=== PATIENT | male | born 1965 | race Caucasian/White ===

== ENCOUNTER 2017-03-18 05:17 | Inpatient (IN) | payer BC ==
[2017-03-18] VITALS (16 sets, daily range): BP systolic 97–117; BP diastolic 51–74
[~2017-03-18] VITALS: Ht 182.9 cm; Wt 79.4 kg
[~2017-03-18 05:17] MED LIST: NKM
[2017-03-18] MEDS ORDERED: Duramorph PF 5mg/10ml amp ONE (06:15)
[2017-03-18] MEDS ORDERED: Bupivacaine 0.5% Inj 30 ml vial INJ ONE (06:16)
[2017-03-18] MEDS ORDERED: Ropivacaine 5mg/ml Vial 20ml INJ ONE (06:16)
[2017-03-18] MEDS ORDERED: Bacitracin 50000 Units Vial ONE ×2 (06:38→13:32)
[2017-03-18] MEDS ORDERED: LR 1000ml 1,000 ML IVLG SCH (07:20)
--- NOTE | 2017-03-18 07:24 | Anethesia Preoperative Eval ---
Anesthesia Pre-op PMH/ROS General Date of Evaluation: Mar 18, 2017 Anesthesiologist: Sumit ASA Score: ASA 2 Mallampati Score Class I : Soft palate, uvula, fauces, pillars visible Class II: Soft palate, uvula, fauces visible Class III: Soft palate, base of uvula visible Class IV: Only hard plate visible Mallampati Classification: Class II Surgeon: Lisa Diagnosis: R Knee Pain Surgical Procedure: R Knee Revision Total Arthroplasty Anesthesia History: none Family History: no anesthesia problems Allergies: Coded Allergies: No Known Allergies (Unverified , 03/17/17) Medications: see eMAR Past Medical History PSxH Narrative: R TKA, R ACL Repair Anesthesia Pre-op Phys. Exam Physician Exam Last Vital Signs Date Time Temp Pulse Resp B/P Pulse Ox O2 Delivery O2 Flow Rate FiO2 03/18/17 06:01 97.7 58 20 117/74 100 Room Air Constitutional: NAD Neurologic: CN 2-12 intact Cardiovascular: RRR Respiratory: CTA Gastrointestinal: S/NT/ND Airway Exam Mallampati Score: Class II MO: full ROM: full Teeth: intact Anesthesia Pre-op A/P Risk Assessment & Plan Assessment: ASA 2 Plan: GA, R Adductor block, Spinal , BIS Status Change Before Surgery: No Pre-Antibiotics Dru Grams Ancef IV Given Within 1 Hr of Incision: Yes Time Given: 07:51 Chano Arana MD Mar 18, 2017 07:24
[2017-03-18] MEDS ORDERED: Meperidine 25mg/0.5ml Inj (FOR RIGORS ONLY) IV PRN (07:30)
[2017-03-18] MEDS ORDERED: fentaNYL 100 mcg/2 mL IV PRN (07:30)
[2017-03-18] MEDS ORDERED: Norco 5mg/325mg tab ORAL PRN (07:30)
[2017-03-18] MEDS ORDERED: Tranexamic Acid 1,000 MG in NS 65 ML IVPB ONE (07:30)
[2017-03-18] MEDS ORDERED: oxyCODONE HCL/Acetaminophen 5/325mg ORAL PRN (07:30)
[2017-03-18] MEDS ORDERED: Ketorolac 60mg Inj IV PRN (07:30)
[2017-03-18] MEDS ORDERED: Atropine Inj 1mg/10ml Syr IV PRN (07:30)
[2017-03-18] MEDS ORDERED: Metoclopramide 10mg/2ml Inj IVP PRN (07:30)
[2017-03-18] MEDS ORDERED: Hydromorphone 0.5mg/0.5ml inj IVP PRN (07:30)
[2017-03-18] MEDS ORDERED: DiphenhydrAMINE 50mg/ml Inj IVP PRN (07:30)
[2017-03-18] MEDS ORDERED: Ketorolac 30mg Inj IV PRN (07:30)
[2017-03-18] MEDS ORDERED: Norco 7.5mg/325mg tab ORAL PRN (07:30)
[2017-03-18] MEDS ORDERED: LORazepam Inj 2mg/ml 1ml IV PRN (07:30)
[2017-03-18] MEDS ORDERED: Midazolam 2mg/2ml Inj IVP PRN (07:30)
--- NOTE | 2017-03-18 07:38 | Pre-Procedure Note/Attestation ---
Pre-Procedure Note/Attestation Complete Prior to Procedure Planned Procedure: right Procedure Narrative: right knee revision Indications for Procedure Pre-Operative Diagnosis: right knee instability and stiffness Attestation I attest that I discussed the nature of the procedure; its benefits; risks and complications; and alternatives (and the risks and benefits of such alternatives ), prior to the procedure, with the patient (or the patient's legal human resources representative). I attest that, if there was a reasonable possibility of needing a blood transfusion, the patient (or the patient's legal human resources representative) was given the [facility] of Health Services standardized written summary, pursuant to the Nigel Cisco Blood Safety Act ([place] Health and Safety Code # 1645, as amended). I attest that I re-evaluated the patient just prior to the surgery and that there has been no change in the patient's H&P, except as documented below: KIET ECHOLS Mar 18, 2017 07:38
--- NOTE | 2017-03-18 09:28 | Immediate Post-Op Evaluation ---
Immediate Post-Op Evalulation Immediate Post-Op Evalulation Procedure: R Knee Revision Total Arthroplasty Date of Evaluation: Mar 18, 2017 Time of Evaluation: 11:17 IV Fluids: 1300 LR Blood Products: 0 Estimated Blood Loss: 100 Urinary Output: 150 Blood Pressure Systolic: 105 Blood Pressure Diastolic: 59 Pulse Rate: 98 Respiratory Rate: 16 O2 Sat by Pulse Oximetry: 98 Temperature (Fahrenheit): 97.5 Pain Score (1-10): 0 Nausea: No Vomiting: No Complications 0 Patient Status: awake, reacts, patent, extubated, none Hydration Status: adequate Dru Grams Ancef IV Given Within 1 Hr of Incision: Yes Time Given: 07:51 Chano Arana MD Mar 18, 2017 09:28
--- NOTE | 2017-03-18 10:20 | Brief Operative Note ---
Immediate Post Operative Note Operative Note Chief Complaint: right knee instability Pre-op Diagnosis: right knee instability and stiffness Procedure: right knee revision Post-op Diagnosis: right knee failed Post-op Diagnosis: same as pre-op Surgeon: gil Tube Sizer Operator: regnie Anesthesia: general Specimen: yes Complications: none Condition: stable Estimated Blood Loss: minimal Drains: hemovac Implant(s) used?: Yes KIET ECHOLS Mar 18, 2017 10:20
--- NOTE | 2017-03-18 11:34 | Diagnostic Imaging Report ---
Indication: Right knee pain Technique: 2 views of the right knee Comparison: None Findings:There is a right knee arthroplasty prosthesis in good position. No worrisome periprosthetic lucency demonstrated. No acute fractures. No dislocations. No suprapatellar effusion. A small metallic surgical foreign body is seen density to the cortex in the lateral aspect of the tibial metaphysis Impression:No acute process Right knee arthroplasty in good position
[2017-03-18] MEDS ORDERED: Morphine Sulfate 2mg/ml Inj IVP PRN ×2 (12:30)
[2017-03-18] MEDS ORDERED: Morphine Sulfate 4mg/ml Inj IVP PRN (12:30)
[2017-03-18] MEDS: D5 1/2NS w/KCl 20mEq 1,000 ML IV SCH (13:42)
[2017-03-18] MEDS: ceFAZolin sod 1 GM in D5W 55 ML IV SCH (13:42)
--- NOTE | 2017-03-18 14:50 | Cardiology Progress Note ---
Assessment/Plan Assessment/Plan full note dicated xarelto fo dvt ppx as of tomorrow if ok with dr alvarez will discuss oob with pt as recommneded pain control may anti emetic as needed Objective Last 24 Hour Vital Signs Date Time Temp Pulse Resp B/P Pulse Ox O2 Delivery O2 Flow Rate FiO2 03/18/17 14:00 97.0 83 20 108/69 99 Room Air 03/18/17 13:15 97.5 63 20 108/66 100 Room Air 03/18/17 13:00 97.0 79 20 111/64 98 Room Air 03/18/17 12:45 65 15 105/61 100 Room Air 03/18/17 12:30 61 14 112/63 100 Room Air 03/18/17 12:15 67 20 98/51 100 Room Air 03/18/17 12:00 71 18 106/64 100 Room Air 03/18/17 11:45 67 15 97/59 100 Room Air 03/18/17 11:30 76 20 100/63 100 Room Air 03/18/17 11:20 88 17 109/60 97 Room Air 03/18/17 11:15 84 15 112/63 96 Room Air 03/18/17 11:07 98 16 98 03/18/17 11:06 97.5 98 16 105/59 98 Room Air 03/18/17 06:01 97.7 58 20 117/74 100 Room Air ANGELIQUE OROZCO Mar 18, 2017 14:50
--- NOTE | 2017-03-18 15:26 | Diagnostic Imaging Report ---
Indication: POST-OP, status post revision a right knee prosthesis Technique: 2 views of the right knee Comparison: 7 hours earlier Findings:Interim replacement of previously demonstrated knee arthroplasty prosthesis with longer stemmed articulating prosthesis. Good anatomic alignment. There are overlying skin yamileth. Small amount of retained air from the surgical exposure is demonstrated. Surgical drain is in place. Impression:Postoperative right knee. No unusual features
[2017-03-18 15:49] LABS: MEAN CORPUSCULAR HEMOGLOBIN 31.2 PG (27.0-31.0); MEAN CORPUSCULAR HGB CONC 33.1 G/DL (32.0-36.0); MEAN CORPUSCULAR VOLUME 94 FL (80-99); MEAN PLATELET VOLUME 6.4 FL (6.5-10.1); PLATELET COUNT 246 K/UL (150-450); RED BLOOD COUNT 4.14 M/UL (4.70-6.10); RED CELL DISTRIBUTION WIDTH 12.3 % (11.6-14.8); WHITE BLOOD COUNT 13.5 K/UL (4.8-10.8)
[2017-03-18 15:52] LABS: INR 1.1 (0.9-1.1); PROTHROMBIN TIME 11.2 SEC (9.30-11.50)
[2017-03-18 16:23] LABS: BAND NEUTROPHILS % (MANUAL) 0 % (0-8); BASOPHILS % (MANUAL) 0 % (0-2); EOSINOPHILS % (MANUAL) 0 % (0-3); LYMPHOCYTES % (MANUAL) 7 % (20-45); NEUTROPHILS % (MANUAL) 89 % (45-75); PLATELET ESTIMATE ADEQUATE; PLATELET MORPHOLOGY NORMAL; TOTAL CELLS COUNTED 100
--- NOTE | 2017-03-18 20:45 | Consultation ---
DATE OF CONSULTATION: 03/18/2017 CARDIOLOGY CONSULTATION CONSULTING PHYSICIAN: Eitan Rosenberg M.D. REFERRING PHYSICIAN: Aurelio Gonzalez M.D. REASON FOR REFERRAL: Postoperative medical care. HISTORY OF PRESENT ILLNESS: This is a young gentleman, who has had history of knee problems, has undergone a prior ACL repair, but apparently left in poor shape and therefore he was evaluated and suddenly underwent repair by Dr. Adler. Today, he is being seen postoperatively . He has really no chest pains or shortness of breath. He did have some little bit nausea earlier, but that seems to have gone away and he is enjoying an ice cream bar at the present time. He denies any chest pain or pressure. There is no shortness of breath. No palpitations. No dizziness at the present time. PAST MEDICAL HISTORY: Fairly unremarkable. His chart indicates, he has got a history of arthritis and hyperlipidemia and previous ACL injuries before. MEDICATIONS: He was not on any medications preoperatively. ALLERGIES: He is not allergic to any medications. SOCIAL HISTORY: He does not smoke. He rarely drinks alcoholic beverages. 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 REVIEW OF SYSTEMS: Gastrointestinal: He has mentioned some nausea, but otherwise negative. Genitourinary: He has a Mckay catheter that he would like to have removed because of discomfort feeling. Pulmonary: Denies coughing or wheezing. Constitutional: No fevers, chills, or night sweats. Neurological: Negative. PHYSICAL EXAMINATION: GENERAL: Shows to be middle-aged gentleman in no respiratory distress. NECK: Supple. No jugular venous distention. LUNGS: Appear to be clear to auscultation and percussion. BACK: There is no CVA or spinal tenderness. CARDIAC: Regular rate and rhythm. No heaves or thrills noted. ABDOMEN: Soft and nontender. Positive bowel sounds. EXTREMITIES: There is no edema. He has right leg in a splint system in place. NEUROLOGIC: He is awake, responsive, and in no apparent distress. LABORATORY VALUES: All of these were preoperatively. His blood sugar was normal. His potassium was minimally elevated at 5.8 with a sodium of 144 and a creatinine of 1.15. INR is 1.0 and PTT of 33. White count 6.7, hemoglobin 13.9, and platelet count 288,000. Liver function tests are all negative. ASSESSMENT AND PLAN: 1. Torn anterior cruciate ligament, now status post repair by Dr. Aurelio Hernandez. 2. Noted history of hyperlipidemia. PLAN: This patient was seen in postoperative medical cardiac consultation. He is doing well postoperatively. He wants the catheter removed and it will be accomplished. He has DVT prophylaxis with use of pneumatic compression stockings. We will start Xarelto for knee surgery, 10 mg daily for 12 days. This will be started tomorrow morning if okay with Dr. Adler. Eitan Rosenberg M.D. DR: LULA JOB#: [id number] CC:
[2017-03-18] MEDS: Norco 7.5mg/325mg tab ORAL PRN (21:44)
[2017-03-19 00:08] VITALS: BP 103/60
[2017-03-19] MEDS: ceFAZolin sod 1 GM in D5W 55 ML IV SCH (00:26)
[2017-03-19] MEDS: D5 1/2NS w/KCl 20mEq 1,000 ML IV SCH (02:40)
[2017-03-19] MEDS: Norco 7.5mg/325mg tab ORAL PRN ×5 (03:47→21:49)
--- NOTE | 2017-03-19 06:25 | 48 Hour Post Anesthesia Eval ---
Post Anesthesia Evaluation Procedure: R Knee Revision Total Arthroplasty Date of Evaluation: Mar 19, 2017 Time of Evaluation: 06:01 Blood Pressure Systolic: 103 0: 60 Pulse Rate: 75 Respiratory Rate: 18 Temperature (Fahrenheit): 98.1 O2 Sat by Pulse Oximetry: 97 Airway: patent Nausea: No Vomiting: No Pain Intensity: 1 Hydration Status: adequate Cardiopulmonary Status: Stable Mental Status/LOC: patient returned to baseline Post-Anesthesia Complications: 0 Follow-up care needed: N/A Chano Arana MD Mar 19, 2017 06:25
[2017-03-19 06:56] LABS: INR 1.1 (0.9-1.1); PROTHROMBIN TIME 11.1 SEC (9.30-11.50)
[2017-03-19] MEDS ORDERED: LR 1000ml ONE (07:00)
[2017-03-19] MEDS ORDERED: NS Irrig 1000ml ONE (07:00)
[2017-03-19] MEDS ORDERED: Propofol 10mg/ml 20ml IV ONE (07:00)
[2017-03-19] MEDS ORDERED: Sterile Water Irrig 1000ml IRRIG ONE (07:00)
[2017-03-19] MEDS ORDERED: Dexamethasone 4mg/ml vial ONE (07:00)
[2017-03-19] MEDS ORDERED: Midazolam 2mg/2ml Inj ONE (07:00)
[2017-03-19] MEDS ORDERED: Alfentanil 2ml Inj ONE (07:00)
[2017-03-19] MEDS ORDERED: Lidocaine 1% MPF 10mg/ml 5ml ONE (07:00)
[2017-03-19 07:02] LABS: BASOPHILS % (AUTO) 0.2 % (0.0-2.0); LYMPHOCYTES % (AUTO) 19.3 % (20.0-45.0); MEAN CORPUSCULAR HEMOGLOBIN 32.2 PG (27.0-31.0); MEAN CORPUSCULAR HGB CONC 34.3 G/DL (32.0-36.0); MEAN CORPUSCULAR VOLUME 94 FL (80-99); MEAN PLATELET VOLUME 6.6 FL (6.5-10.1); MONOCYTES % (AUTO) 10.2 % (1.0-10.0); NEUTROPHILS % (AUTO) 70.2 % (45.0-75.0); PLATELET COUNT 233 K/UL (150-450); RED BLOOD COUNT 3.27 M/UL (4.70-6.10); WHITE BLOOD COUNT 15.3 K/UL (4.8-10.8)
[2017-03-19 08:00] VITALS: BP 119/66
[2017-03-19] MEDS: Xarelto 10mg tab ORAL SCH (09:00)
[2017-03-19] MEDS ORDERED: Enoxaparin 40mg Inj SUBQ SCH (09:00)
[2017-03-19] MEDS ORDERED: celeBREX 200mg Cap **SURGERY PATIENTS ONLY ORAL SCH (09:00)
[2017-03-19 12:00] VITALS: BP 116/68
[2017-03-19 16:00] VITALS: BP 112/66
[2017-03-19] MEDS: celeBREX 200mg Cap **SURGERY PATIENTS ONLY ORAL SCH (18:14)
--- NOTE | 2017-03-19 18:21 | Cardiology Progress Note ---
Assessment/Plan Assessment/Plan 1. Torn anterior cruciate ligament, now status post repair 2. Noted history of hyperlipidemia 3. anemia . drain still has output walked has associated pain dvt ppx started with xarelto watch h/h eatign ivf dcd d/w rn d/w dr alvarez Subjective Cardiovascular: Denies: chest pain, lightheadedness, palpitations Respiratory: Denies: SOB with excertion Gastrointestinal/Abdominal: Denies: abdominal pain, constipated Genitourinary: Denies: burning Objective Last 24 Hour Vital Signs Date Time Temp Pulse Resp B/P Pulse Ox O2 Delivery O2 Flow Rate FiO2 03/19/17 18:06 98.6 03/19/17 16:00 97.3 75 19 112/66 98 Room Air 03/19/17 12:00 98.6 69 19 116/68 98 Room Air 03/19/17 08:00 96.1 90 19 119/66 100 Room Air 03/19/17 06:25 75 18 97 03/19/17 00:08 98.1 75 18 103/60 97 Room Air 03/18/17 22:00 110/65 96 Room Air 03/18/17 20:15 98.0 79 19 97/55 97 Room Air General Appearance: no apparent distress, alert Neck: supple Cardiovascular: normal rate, regular rhythm Respiratory/Chest: lungs clear, normal breath sounds Abdomen: normal bowel sounds, non tender, soft Extremities: non-tender, no swelling Intake and Output 03/18/17 03/19/17 19:00 07:00 Intake Total 1115 ml 1050 ml Output Total 900 ml 1350 ml Balance 215 ml -300 ml Intake Oral 590 ml 300 ml IV Total 525 ml 750 ml Output Urine Total 500 ml 800 ml Drainage Total 400 ml 550 ml Laboratory Tests Test 03/19/17 05:15 White Blood Count 15.3 K/UL (4.8-10.8) H Red Blood Count 3.27 M/UL (4.70-6.10) L Hemoglobin 10.6 G/DL (14.2-18.0) L Hematocrit 30.8 % (42.0-52.0) L Mean Corpuscular Volume 94 FL (80-99) Mean Corpuscular Hemoglobin 32.2 PG (27.0-31.0) H Mean Corpuscular Hemoglobin Concent 34.3 G/DL (32.0-36.0) Red Cell Distribution Width 12.0 % (11.6-14.8) Platelet Count 233 K/UL (150-450) Mean Platelet Volume 6.6 FL (6.5-10.1) Neutrophils (%) (Auto) 70.2 % (45.0-75.0) Lymphocytes (%) (Auto) 19.3 % (20.0-45.0) L Monocytes (%) (Auto) 10.2 % (1.0-10.0) H Eosinophils (%) (Auto) 0.0 % (0.0-3.0) Basophils (%) (Auto) 0.2 % (0.0-2.0) Prothrombin Time 11.1 SEC (9.30-11.50) Prothromb Time International Ratio 1.1 (0.9-1.1) Microbiology Date/Time Source Procedure Growth Status 03/18/17 09:00 Knee Right Gram Stain - Final Resulted 03/18/17 09:00 Knee Right Aerobic Culture - Preliminary NO GROWTH AFTER 24 HOURS Resulted 03/18/17 09:00 Knee Right Anaerobic Culture Pending Resulted ANGELIQUE OROZCO Mar 19, 2017 18:21
[2017-03-19 20:00] VITALS: BP 119/76
[2017-03-20] VITALS: BP 118/64
[2017-03-20 04:00] VITALS: BP 122/78
[2017-03-20] MEDS: Norco 7.5mg/325mg tab ORAL PRN ×2 (06:43→15:04)
[2017-03-20 07:31] LABS: BASOPHILS % (AUTO) 0.7 % (0.0-2.0); EOSINOPHILS % (AUTO) 1.4 % (0.0-3.0); LYMPHOCYTES % (AUTO) 48.7 % (20.0-45.0); MEAN CORPUSCULAR HEMOGLOBIN 33.7 PG (27.0-31.0); MEAN CORPUSCULAR HGB CONC 35.1 G/DL (32.0-36.0); MEAN CORPUSCULAR VOLUME 96 FL (80-99); MEAN PLATELET VOLUME 6.9 FL (6.5-10.1); MONOCYTES % (AUTO) 8.3 % (1.0-10.0); PLATELET COUNT 179 K/UL (150-450); RED BLOOD COUNT 3.03 M/UL (4.70-6.10); RED CELL DISTRIBUTION WIDTH 12.5 % (11.6-14.8); WHITE BLOOD COUNT 11.1 K/UL (4.8-10.8)
[2017-03-20 08:01] LABS: INR 0.9 (0.9-1.1); PROTHROMBIN TIME 9.5 SEC (9.30-11.50)
[2017-03-20 08:29] VITALS: BP 118/76
[2017-03-20] MEDS: Xarelto 10mg tab ORAL SCH (09:13)
[2017-03-20] MEDS: celeBREX 200mg Cap **SURGERY PATIENTS ONLY ORAL SCH ×2 (09:13→17:44)
[2017-03-20] MEDS ORDERED: Tubing IV Secondary IV ONE (10:35)
[2017-03-20] MEDS ORDERED: NS Irrig 1000ml ONE (10:35)
[2017-03-20 12:00] VITALS: BP 119/73
[2017-03-20 16:38] VITALS: BP 109/68
--- NOTE | 2017-03-20 17:30 | Cardiology Progress Note ---
Assessment/Plan Assessment/Plan 1. Torn anterior cruciate ligament, now status post repair 2. Noted history of hyperlipidemia 3. anemia . walked dvt ppx started with xarelto h/h stable eatign ivf dcd home tomorrow if ok with dr alvarez Subjective Cardiovascular: Denies: chest pain, lightheadedness Respiratory: Denies: SOB with excertion Gastrointestinal/Abdominal: Denies: abdominal pain, constipated Genitourinary: Denies: burning Objective Last 24 Hour Vital Signs Date Time Temp Pulse Resp B/P Pulse Ox O2 Delivery O2 Flow Rate FiO2 03/20/17 16:38 97.6 73 20 109/68 100 Room Air 03/20/17 12:00 97.6 74 20 119/73 99 Room Air 03/20/17 08:29 97.3 87 20 118/76 99 Room Air 03/20/17 04:00 97.7 90 20 122/78 98 Room Air 03/20/17 00:00 97.7 98 17 118/64 98 Room Air 03/19/17 20:00 97.4 85 18 119/76 99 Room Air 03/19/17 18:06 98.6 General Appearance: alert Neck: normal alignment Cardiovascular: normal rate, regular rhythm Respiratory/Chest: lungs clear Abdomen: normal bowel sounds, non tender, soft Extremities: no swelling Intake and Output 03/19/17 03/20/17 19:00 07:00 Intake Total 975 ml Output Total 280 ml 100 ml Balance 695 ml -100 ml Intake Oral 600 ml IV Total 375 ml Drainage Total 280 ml 100 ml # Voids 1 2 Laboratory Tests Test 03/20/17 05:30 White Blood Count 11.1 K/UL (4.8-10.8) H Red Blood Count 3.03 M/UL (4.70-6.10) L Hemoglobin 10.2 G/DL (14.2-18.0) L Hematocrit 29.1 % (42.0-52.0) L Mean Corpuscular Volume 96 FL (80-99) Mean Corpuscular Hemoglobin 33.7 PG (27.0-31.0) H Mean Corpuscular Hemoglobin Concent 35.1 G/DL (32.0-36.0) Red Cell Distribution Width 12.5 % (11.6-14.8) Platelet Count 179 K/UL (150-450) Mean Platelet Volume 6.9 FL (6.5-10.1) Neutrophils (%) (Auto) 41.0 % (45.0-75.0) L Lymphocytes (%) (Auto) 48.7 % (20.0-45.0) H Monocytes (%) (Auto) 8.3 % (1.0-10.0) Eosinophils (%) (Auto) 1.4 % (0.0-3.0) Basophils (%) (Auto) 0.7 % (0.0-2.0) Prothrombin Time 9.5 SEC (9.30-11.50) Prothromb Time International Ratio 0.9 (0.9-1.1) Microbiology Date/Time Source Procedure Growth Status 03/18/17 09:00 Knee Right Gram Stain - Final Resulted 03/18/17 09:00 Knee Right Aerobic Culture - Preliminary NO GROWTH AFTER 48 HOURS Resulted 03/18/17 09:00 Knee Right Anaerobic Culture - Preliminary NO GROWTH AFTER 48 HOURS Resulted ANGELIQUE OROZCO Mar 20, 2017 17:30
[2017-03-20 20:00] VITALS: BP 122/81
--- NOTE | 2017-03-20 20:32 | General Progress Note ---
Progress Note Progress Note doing grood incision clear drain dc minimal pain xrays perfect cont RX KIET ECHOLS Mar 20, 2017 20:32
[2017-03-21] VITALS: BP 117/83
[2017-03-21 04:00] VITALS: BP 120/65
[2017-03-21 06:02] LABS: BASOPHILS % (AUTO) 0.7 % (0.0-2.0); EOSINOPHILS % (AUTO) 2.2 % (0.0-3.0); LYMPHOCYTES % (AUTO) 35.7 % (20.0-45.0); MEAN CORPUSCULAR HEMOGLOBIN 31.7 PG (27.0-31.0); MEAN CORPUSCULAR HGB CONC 33.7 G/DL (32.0-36.0); MEAN CORPUSCULAR VOLUME 94 FL (80-99); MEAN PLATELET VOLUME 6.9 FL (6.5-10.1); MONOCYTES % (AUTO) 8.9 % (1.0-10.0); NEUTROPHILS % (AUTO) 52.5 % (45.0-75.0); PLATELET COUNT 230 K/UL (150-450); RED BLOOD COUNT 3.43 M/UL (4.70-6.10); RED CELL DISTRIBUTION WIDTH 12.3 % (11.6-14.8); WHITE BLOOD COUNT 9.4 K/UL (4.8-10.8)
[2017-03-21 06:03] LABS: INR 0.9 (0.9-1.1); PROTHROMBIN TIME 9.7 SEC (9.30-11.50)
[2017-03-21 08:13] VITALS: BP 125/81
[2017-03-21] MEDS: celeBREX 200mg Cap **SURGERY PATIENTS ONLY ORAL SCH ×2 (08:25→17:10)
[2017-03-21] MEDS: Xarelto 10mg tab ORAL SCH (08:25)
[2017-03-21 12:30] VITALS: BP 107/66
[2017-03-21 16:46] VITALS: BP 113/61
--- NOTE | 2017-03-21 17:37 | Cardiology Progress Note ---
Assessment/Plan Assessment/Plan 1. Torn anterior cruciate ligament, now status post repair 2. Noted history of hyperlipidemia 3. anemia . walked dvt ppx started with xarelto understadn only a total of 12 dyas post op of xarelto h/h stable eatign ivf dcd will d/w dr alvarez about dc Subjective Cardiovascular: Denies: chest pain, lightheadedness, palpitations Respiratory: Denies: shortness of breath Gastrointestinal/Abdominal: Denies: abdominal pain Genitourinary: Denies: burning Objective Last 24 Hour Vital Signs Date Time Temp Pulse Resp B/P Pulse Ox O2 Delivery O2 Flow Rate FiO2 03/21/17 16:46 99.0 81 21 113/61 100 Room Air 03/21/17 12:30 98.0 76 20 107/66 97 Room Air 03/21/17 08:13 98.0 95 19 125/81 100 Room Air 03/21/17 04:00 97.8 72 19 120/65 99 Room Air 03/21/17 00:00 98.0 72 18 117/83 98 Room Air 03/20/17 20:00 98.2 77 20 122/81 100 Room Air General Appearance: no apparent distress, alert Neck: supple Cardiovascular: normal rate, regular rhythm Respiratory/Chest: lungs clear Abdomen: normal bowel sounds, non tender, soft Extremities: no swelling Intake and Output 03/20/17 03/21/17 19:00 07:00 Intake Total 600 ml 320 ml Output Total 50 ml Balance 550 ml 320 ml Intake Oral 600 ml 320 ml Drainage Total 50 ml # Voids 2 3 Laboratory Tests Test 03/21/17 05:30 White Blood Count 9.4 K/UL (4.8-10.8) Red Blood Count 3.43 M/UL (4.70-6.10) L Hemoglobin 10.9 G/DL (14.2-18.0) L Hematocrit 32.2 % (42.0-52.0) L Mean Corpuscular Volume 94 FL (80-99) Mean Corpuscular Hemoglobin 31.7 PG (27.0-31.0) H Mean Corpuscular Hemoglobin Concent 33.7 G/DL (32.0-36.0) Red Cell Distribution Width 12.3 % (11.6-14.8) Platelet Count 230 K/UL (150-450) Mean Platelet Volume 6.9 FL (6.5-10.1) Neutrophils (%) (Auto) 52.5 % (45.0-75.0) Lymphocytes (%) (Auto) 35.7 % (20.0-45.0) Monocytes (%) (Auto) 8.9 % (1.0-10.0) Eosinophils (%) (Auto) 2.2 % (0.0-3.0) Basophils (%) (Auto) 0.7 % (0.0-2.0) Prothrombin Time 9.7 SEC (9.30-11.50) Prothromb Time International Ratio 0.9 (0.9-1.1) ANGELIQUE OROZCO Mar 21, 2017 17:37
[2017-03-21 20:00] VITALS: BP 115/70
[2017-03-21] MEDS ORDERED: Bisacodyl EC 5mg tab ORAL PRN (20:15)
[2017-03-21] MEDS ORDERED: Milk of Magnesia 30ml Ud ORAL PRN (20:15)
[2017-03-22] VITALS: BP 102/63
[2017-03-22 04:00] VITALS: BP 115/69
[2017-03-22 07:26] LABS: INR 0.9 (0.9-1.1); PROTHROMBIN TIME 9.4 SEC (9.30-11.50)
[2017-03-22 08:10] VITALS: BP 123/66
[2017-03-22] MEDS: Xarelto 10mg tab ORAL SCH (09:09)
[2017-03-22] MEDS: celeBREX 200mg Cap **SURGERY PATIENTS ONLY ORAL SCH ×2 (09:09→18:26)
[2017-03-22 12:00] VITALS: BP 124/71
[2017-03-22 16:00] VITALS: BP 125/72
--- NOTE | 2017-03-25 11:57 | Discharge Summary ---
Discharge Summary Hospital Course Date of Admission Mar 18, 2017 at 05:17 Date of Discharge Mar 22, 2017 at 18:05 Admitting Diagnosis R knee instability and stiffness Reason for Hospitalization: elective surgery HPI Bebo Darden is a 51 year old male who was admitted on Mar 18, 2017 at 05:17 for Right Knee Loose Hardware, R knee instability and stiffness Patient was admitted for elective surgery Consultations dr Rosenberg Procedures s/p R knee revision 03/18/[address] [facility] Course s/p surgery course of recovery uneventful neurovascular intact pain management initially with drain, output monitored dressing C/D/I, drain dc surgery closely followed pain management, minimal ambulated with PT initially with IVF tolerated diet, IVF dc DVT prophayxlis with Xarelto for total of 12 days HH stable, at baseline, no trend down pathology of R knee specimen - no acute infection, no microorganisms were noted voided freely had empiric abx had BM dc today fup as outpt with surgeon scripts for analgesics and DVT prophylaxis provided upon dc FINAL DIAGNOSIS torn anterior cruciate ligament, status post R knee revision history of hyperlipidemia anemia Discharge Condition Upon Discharge: stable Discharge Disposition Patient was discharged to Home () Discharge Diagnoses: Discharge Instructions Discharge Instructions Special Instructions I have been assigned to complete a D/C Summary on this account. I was not involved in the patient management Carey Cummins NP (Vanchtein) Mar 25, 2017 11:57
--- NOTE | 2017-03-27 07:00 | Operative Note - Dictated ---
DATE OF OPERATION: 03/18/2017 NOTE: POOR AUDIO QUALITY NOTE: DICTATION INCOMPLETE PREOPERATIVE DIAGNOSIS: Failed right knee replacement. POSTOPERATIVE DIAGNOSIS: Failed right knee replacement. PROCEDURE: Right knee total revision, modifier 22 secondary to difficulties because of failure. 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 PROCEDURES: 1. Removal of prior implants. 2. Revision of knee with new Ivan revision implant. Of note, right knee femur with a 16 x 100 straight stem size 5 tibia with a 12 x 100 offset stem, 17 mm polyethylene CCK. SURGEON: Aurelio Gonzalez M.D. EQUAL OPPORTUNITY OFFICER: . ELEVATOR CONSTRUCTOR HELPER: Unknown. PREOPERATIVE NOTE: This is a pleasant gentleman, who had a failed knee replacement done by Dr. Royal Baumann. 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 He has been worked up by myself, ruled out infection. There was questionable loosening of the tibial component. I explained to him the surgery and the risks of infection, bleeding, anesthetic risk, neurovascular damage, DVT, PE, and failure of the operation. The patient agreed and consented to the surgery. I also explained to him that the first time the knee replacement is done is the best time to have the most optimal result after which the results decrease significantly because of loss of bone. The patient agreed. OPERATIVE ROOM NOTE: Under the benefit of spinal anesthesia and general anesthetic, the patient's right knee was prepped and draped in an appropriate manner. Upon looking at the knee, it is significantly extremely compared to the opposite side. tibial component, which is . significant instability on the medial side in extension and flexion. I then proceeded to make a midline incision through the old incision and incised through retinaculum. I removed all the scar tissue. I did a quadriceps in order to expose the implant. I then proceeded to remove the tibial and femoral components with ease using chisel and also the removal instrument. This was done successfully. Obviously, modified secondary to difficulty because this is a revision. I then proceeded to wash the bed copiously. No tourniquet was used throughout the course. Blood loss in total was approximately 300 mL. I then proceeded to work on the femoral side cut. Aurelio Gonzalez M.D. DR: JEFFREY JOB#: [id number] CC:
== END 2017-03-22 18:05 | disposition home or self-care (01) | DRG 468 ==
LOC: SDSOVERFLO 05:17 → 3E 11:46
PROC: 0SRC0J9 Replacement of Right Knee Joint with Synthetic Substitute, Cemented, Open Approach (ICD-10-PCS; principal; 2017-03-18 07:00)
PROC: 0SPC0JZ Removal of Synthetic Substitute from Right Knee Joint, Open Approach (ICD-10-PCS; principal; 2017-03-18 07:00)
DX: T84.022A Instability of internal right knee prosthesis, initial encounter (principal); E78.5 Hyperlipidemia, unspecified; S83.411A Sprain of medial collateral ligament of right knee, initial encounter; M25.661 Stiffness of right knee, not elsewhere classified; D64.9 Anemia, unspecified; Y83.8 Other surgical procedures as the cause of abnormal reaction of the patient, or of later complication, without mention of misadventure at the time of the procedure
CPT/HCPCS: 36415; 85007; 85025; 85610; 87070; 87075; 87205; 94003; 94150; J2250; J2405; J2765; J3490

== ENCOUNTER 2017-07-30 11:27 | Inpatient (IN) | payer BC ==
[2017-07-30] VITALS (13 sets, daily range): BP systolic 128–165; BP diastolic 80–103
[~2017-07-30] VITALS: Ht 182.9 cm; Wt 81.6 kg
--- NOTE | 2017-07-30 12:43 | Anethesia Preoperative Eval ---
Anesthesia Pre-op PMH/ROS General Date of Evaluation: Jul 30, 2017 Anesthesiologist: Hubert ASA Score: ASA 1 Mallampati Score Class I : Soft palate, uvula, fauces, pillars visible Class II: Soft palate, uvula, fauces visible Class III: Soft palate, base of uvula visible Class IV: Only hard plate visible Mallampati Classification: Class II Surgeon: Lisa Diagnosis: Right knee scar tissue Surgical Procedure: Right knee scar tissue removal and liner exchange Anesthesia History: none Family History: no anesthesia problems Allergies: Coded Allergies: No Known Allergies (Unverified , 07/30/17) Medications: see eMAR Past Medical History Cardiovascular: Denies: HTN, CAD, [place], valve dz, arrhythmia, other Pulmonary: Denies: asthma, COPD, FRED, other Gastrointestinal/Genitourinary: Denies: GERD, CRI, ESRD, other Neurologic/Psychiatric: Denies: dementia, CVA, depression/anxiety, TIA, other Endocrine: Denies: DM, hypothyroidism, steroids, other HEENT: Denies: cataract (L), cataract (R), glaucoma, GAMBELL (L), GAMBELL (R), other Hematology/Immune: Denies: anemia, DVT, bleeding disorder, other Musculoskeletal/Integumentary: Denies: OA, RA, DJD, DDD, edema, other PSxH Narrative: Right TKR and TKR revision Anesthesia Pre-op Phys. Exam Physician Exam Last Vital Signs Date Time Temp Pulse Resp B/P (MAP) Pulse Ox O2 Delivery O2 Flow Rate FiO2 07/30/17 12:24 98.9 74 17 133/83 98 Room Air Constitutional: NAD Cardiovascular: RRR Respiratory: CTA Airway Exam Mallampati Score: Class II MO: full ROM: full Teeth: intact Anesthesia Pre-op A/P Labs see chart Studies Pre-op Studies: EKG - sr Risk Assessment & Plan Assessment: ASA I Plan: GA Status Change Before Surgery: No Pre-Antibiotics Drug: Ancef 2g Given Within 1 Hr of Incision: Yes Time Given: 13:30 VIRY CABRAL M.D. Jul 30, 2017 12:43
[2017-07-30] MEDS ORDERED: LR 1000ml ONE (13:00)
[2017-07-30] MEDS ORDERED: NS Irrig 1000ml ONE (13:00)
[2017-07-30] MEDS ORDERED: Lidocaine 1% MPF 10mg/ml 5ml ONE (13:00)
[2017-07-30] MEDS ORDERED: Midazolam 2mg/2ml Inj ONE ×2 (13:00→15:46)
[2017-07-30] MEDS ORDERED: fentaNYL 100 mcg/2 mL IV ONE (13:00)
[2017-07-30] MEDS ORDERED: Metoclopramide 10mg/2ml Inj ONE (13:00)
[2017-07-30] MEDS ORDERED: Ketamine 500mg Inj ONE (13:00)
[2017-07-30] MEDS ORDERED: Dexamethasone 4mg/ml vial ONE (13:00)
[2017-07-30] MEDS ORDERED: NS Irrig 4000ml IRRIG ONE (13:00)
[2017-07-30] MEDS ORDERED: Sterile Water Irrig 1000ml IRRIG ONE (13:00)
[2017-07-30] MEDS ORDERED: Ketorolac 30mg Inj ONE (13:00)
--- NOTE | 2017-07-30 13:08 | Pre-Procedure Note/Attestation ---
Pre-Procedure Note/Attestation Complete Prior to Procedure Planned Procedure: left Procedure Narrative: right knee reviasion Indications for Procedure Pre-Operative Diagnosis: right knee scar Attestation I attest that I discussed the nature of the procedure; its benefits; risks and complications; and alternatives (and the risks and benefits of such alternatives ), prior to the procedure, with the patient (or the patient's legal appliance service representative). I attest that, if there was a reasonable possibility of needing a blood transfusion, the patient (or the patient's legal appliance service representative) was given the [facility] Health Services standardized written summary, pursuant to the Nigel Cisco Blood Safety Act ([place] Health and Safety Code # 1645, as amended). I attest that I re-evaluated the patient just prior to the surgery and that there has been no change in the patient's H&P, except as documented below: KIET ECHOLS Jul 30, 2017 13:08
[2017-07-30] MEDS ORDERED: Bacitracin 50000 Units Vial ONE (13:12)
[2017-07-30] MEDS ORDERED: NeoSporin Gu Irrig 1ml Amp IRRIG ONE (13:12)
[2017-07-30] MEDS ORDERED: Propofol 200mg/20ml IV ONE (13:14)
[2017-07-30] MEDS ORDERED: LR 1000ml 1,000 ML IVLG SCH (13:43)
[2017-07-30] MEDS ORDERED: fentaNYL 100 mcg/2 mL IV PRN (13:45)
[2017-07-30] MEDS ORDERED: DiphenhydrAMINE 50mg/ml Inj IVP PRN (13:45)
--- NOTE | 2017-07-30 13:47 | Immediate Post-Op Evaluation ---
Immediate Post-Op Evalulation Immediate Post-Op Evalulation Procedure: Right knee scar tissue removal and liner exchange Date of Evaluation: Jul 30, 2017 Time of Evaluation: 15:30 IV Fluids: 1.5L Blood Products: 0 Estimated Blood Loss: 150 Urinary Output: 0 Blood Pressure Systolic: 130 Blood Pressure Diastolic: 67 Pulse Rate: 96 Respiratory Rate: 12 O2 Sat by Pulse Oximetry: 100 Temperature (Fahrenheit): 97.9 Pain Score (1-10): 0 Nausea: No Vomiting: No Complications 0 Patient Status: awake, reacts, patent, none Hydration Status: adequate Drug: Ancef 2g Given Within 1 Hr of Incision: Yes Time Given: 13:30 VIRY CABRAL M.D. Jul 30, 2017 13:47
--- NOTE | 2017-07-30 13:48 | 48 Hour Post Anesthesia Eval ---
Post Anesthesia Evaluation Procedure: Right knee scar tissue removal and liner exchange Date of Evaluation: Jul 30, 2017 Airway: patent Nausea: No Vomiting: No Pain Intensity: 0 Hydration Status: adequate Cardiopulmonary Status: at baseline Mental Status/LOC: patient returned to baseline Post-Anesthesia Complications: 0 Follow-up care needed: N/A - further care as per primary team VIRY CABRAL M.D. Jul 30, 2017 13:48
[2017-07-30] MEDS ORDERED: D5 1/2NS w/KCl 20mEq 1,000 ML IV SCH (14:30)
[2017-07-30] MEDS ORDERED: Midazolam 2mg/2ml Inj IVP ONE (15:50)
--- NOTE | 2017-07-30 16:17 | Diagnostic Imaging Report ---
Indication: Right knee pain and inflexibility Technique: 3 views of the right knee Comparison: 03/18/2017 postoperative images Findings:Patient is status post total knee arthroplasty. There appears to be good anatomic alignment of the hardware, nor is some periprosthetic lucency. Some surgical hardware is also seen in the lateral distal femoral cortex. Heterotopic ossification is seen adjacent to the medial femoral epicondyle as well as in the posterior joint region. The bones are demineralized. Findings are similar to the previous postoperative images Impression: No acute abnormality Right knee prosthesis in place, no unusual features
[2017-07-30] MEDS: Hydromorphone 0.5mg/0.5ml inj IVP PRN ×2 (16:35→16:59)
[2017-07-30] MEDS ORDERED: LORazepam Inj 2mg/ml 1ml IV ONE (17:00)
[2017-07-30] MEDS ORDERED: Chloraseptic Spray 20mL Bottle ORAL PRN (18:15)
[2017-07-30] MEDS ORDERED: Norco 10mg/325mg tab ORAL PRN (18:15)
[2017-07-30] MEDS ORDERED: Zolpidem 5mg tab ORAL PRN (18:30)
[2017-07-30] MEDS ORDERED: Milk of Magnesia 30ml Ud ORAL PRN (18:30)
--- NOTE | 2017-07-30 18:40 | Cardiology Progress Note ---
Assessment/Plan Assessment/Plan [id number] DVT PPX IVF UNTIL START PO AMBUALTE ALLOWED BY DR ANDREWS HOME SOON TOELRATE POS AND IS ABLE TO AMBUALTE AND WHEN OK WITH DR ANDREWS Objective Last 24 Hour Vital Signs Date Time Temp Pulse Resp B/P (MAP) Pulse Ox O2 Delivery O2 Flow Rate FiO2 07/30/17 17:40 97.6 86 20 131/94 97 Room Air 07/30/17 17:30 97.8 07/30/17 17:15 97.8 108 20 137/98 98 Room Air 07/30/17 17:00 109 18 146/103 98 Room Air 07/30/17 16:45 113 16 151/101 100 Simple Mask 6.0 07/30/17 16:30 105 13 165/97 100 Simple Mask 6.0 07/30/17 16:15 117 14 163/94 100 Simple Mask 6.0 07/30/17 16:00 108 16 157/94 100 Simple Mask 6.0 07/30/17 15:45 103 17 148/99 100 Simple Mask 6.0 07/30/17 15:35 93 16 141/94 100 Simple Mask 6.0 07/30/17 15:30 99 16 141/94 100 Simple Mask 6.0 07/30/17 15:28 96 12 100 07/30/17 15:25 97.9 98 12 128/80 100 Simple Mask 6.0 07/30/17 12:24 98.9 74 17 133/83 98 Room Air ANGELIQUE OROZCO Jul 30, 2017 18:40
[2017-07-31 00:26] VITALS: BP 135/82
--- NOTE | 2017-07-31 03:30 | Consultation ---
DATE OF CONSULTATION: 07/30/2017 CONSULTING PHYSICIAN: Dave Cruz M.D. REFERRING PHYSICIAN: Aurelio Gonzalez M.D. REASON FOR CONSULTATION: Acute pain consult. HISTORY OF PRESENT ILLNESS: Dear Dr. Gonzalez: Thank you kindly for consulting me to evaluate and render an opinion as to how to proceed in the management of the patient's acute postoperative right knee pain after revision of right knee arthroplasty surgery. 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 Today, he required revision surgery and complained of severe 9/10 pain despite multiple bolus doses of narcotics including benzodiazepine and opioid. You consulted me for acute pain consultation. I saw the patient at the bedside with his after discussion with the recovery room nurse, the floor nurse, and yourself, Dr. Gonzalez. I spent over 75 minutes in consultation with an additional 30 minutes in medical record review. I reviewed multiple records from today's date of surgery at [facility] including records from the surgery suite, the recovery room, the nursing and pharmacy departments. I also reviewed multiple preoperative records from Internal Medicine, Dr. Franchesca Norris of 07/24/2017 along with diagnostic testing. PAST MEDICAL HISTORY: Acute postoperative right knee pain, status post revision right knee arthroplasty by Dr. Aurelio Gonzalez in March 2017. PAST SURGICAL HISTORY: Right total knee arthroplasty by Dr. Aurelio Gonzalez in March 2017. ALLERGIES: No known drug allergies. MEDICATIONS: At home, none. The patient did use hydrocodone after his knee replacement surgery in March 2017. FAMILY HISTORY: Hydrocephalus. 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 He denies tobacco, alcohol, or illicit drug use. He is accompanied at the bedside by a female glass robot operator. REVIEW OF SYSTEMS: Per Dr. Rosenberg. PHYSICAL EXAMINATION: GENERAL: Age 52, height 182, weight 81 kilograms, and body mass index is 24. VITAL SIGNS: Shows afebrile, pulse 108, respirations 20, blood pressure 137/98, and oxygen saturation 98% on room air. LABORATORY AND DIAGNOSTIC STUDIES: A 12-lead EKG shows normal sinus rhythm, ventricular rate 57, no evidence for acute cardiac ischemia. Laboratory studies on 07/24/2017, PTT 33. INR 1.0. Urinalysis negative. Hemoglobin 13, hematocrit 39, platelets pending. White count 9, platelets 315, glucose 101, calcium 9.8, BUN 19, and creatinine 1.1. Albumin 4.3. Total protein 6.1. Sodium 137, potassium 4.8, chloride 102, and bicarbonate 27. AST 22, ALT 14, and alkaline phosphatase 102. Total bilirubin is 0.5. IMPRESSION: Acute postoperative right knee pain, status post revision right knee arthroplasty by Dr. Aurelio Gonzalez in March 2017. TREATMENT AND RECOMMENDATIONS: The patient is trialed on multiple pain medications already without adequate pain control. After a detailed medication history at the bedside with his female glass robot operator, I decided to use 2 tablets of Lambrook 10/325 q.4 h. p.r.n. for mild pain. I also tried him on a subcutaneous dose of Dilaudid 1.5 mg q.3 h. p.r.n. for severe pain. The patient denies alcohol usage. Although he is a bit irritable, he does not appear to be anxious and I will hold off on the use of benzodiazepine at this time. I would hope that alternating the high dose hydrocodone with intermittently interspersed with the subcutaneous Dilaudid at high dose as ordered, might improve his pain complaints somewhat. If the hydrocodone does not seem to be adequate, increasing to a more potent opioid such as oxycodone may be beneficial. The patient denies marijuana usage. The patient denies tobacco usage. Dr. Rosenberg will be following the patient's Internal Medicine issues. Dr. Gonzalez has ordered Lovenox to start tomorrow morning for chemical anticoagulation. The patient is at risk for deep venous thrombosis after knee instrumentation surgery. I have ordered a p.r.n. dose of milk of magnesia as a rescue laxative. I have ordered Ambien 10 mg at bedtime in case of insomnia issues. I have placed the patient on Protonix 40 mg nightly for GI ulcer prophylaxis along with a p.r.n. dose of Mylanta 30 mL q.6 h. for any GERD symptom exacerbation. I have ordered Benadryl 20 mg orally q.6 h. in case of any itching symptoms. I have ordered Chloraseptic spray bottle in case of any sore throat complaints and I have ordered Zofran as an anti-emetic first line agent 4 mg intravenously q.4 h. While the patient is on high dose Lambrook, which contains Tylenol, I would hold off on the use of plain Tylenol to avoid exceeding daily Tylenol recommended limits. Dave Cruz M.D. DR: ANKIT JOB#: [id number] CC:
[2017-07-31] MEDS: ceFAZolin sod 1 GM in D5W 55 ML IV SCH ×2 (03:40→04:45)
[2017-07-31 04:39] VITALS: BP 131/84
[2017-07-31 06:59] LABS: PROTHROMBIN TIME 10.1 SEC (9.30-11.50)
[2017-07-31 07:13] LABS: BASOPHILS % (AUTO) 0.2 % (0.0-2.0); LYMPHOCYTES % (AUTO) 18.3 % (20.0-45.0); MEAN CORPUSCULAR HEMOGLOBIN 28.8 PG (27.0-31.0); MEAN CORPUSCULAR HGB CONC 32.1 G/DL (32.0-36.0); MEAN CORPUSCULAR VOLUME 90 FL (80-99); MEAN PLATELET VOLUME 6.5 FL (6.5-10.1); MONOCYTES % (AUTO) 10.8 % (1.0-10.0); NEUTROPHILS % (AUTO) 70.7 % (45.0-75.0); PLATELET COUNT 309 K/UL (150-450); RED BLOOD COUNT 4.06 M/UL (4.70-6.10); RED CELL DISTRIBUTION WIDTH 16.1 % (11.6-14.8); WHITE BLOOD COUNT 17.7 K/UL (4.8-10.8)
[2017-07-31 08:00] VITALS: BP 142/90
--- NOTE | 2017-07-31 08:15 | Consultation ---
DATE OF CONSULTATION: 07/30/2017 NOTE: POOR AUDIO QUALITY CARDIOLOGY CONSULTATION CONSULTING PHYSICIAN: Eitan Rosenberg M.D. REFERRING PHYSICIAN: Aurelio Gonzalez M.D. REASON FOR EVALUATION: Postoperative medical care. HISTORY OF PRESENT ILLNESS: This is a middle-aged gentleman with history of multiple medical problems. The patient is admitted and has undergone surgery by Dr. Adler, a repair surgery of his knee. Postoperatively, the patient was seen in his room. He is uncomfortable because of pain in his right knee. He does not have any chest pain or shortness of breath. There is no PND or orthopnea. No palpitations. No sore throat. No nausea at this time, but just a postoperative pain as mentioned. PAST MEDICAL HISTORY: Positive for history of arthritis, hyperlipidemia, and prior ACL injuries before and underwent torn ACL, was repaired by Dr. Adler in March 2016 as well. ALLERGIES: He is not allergic to any medications. SOCIAL HISTORY: Nonsmoker. Rarely drinks alcoholic beverages . REVIEW OF SYSTEMS: GASTROINTESTINAL: Denies any nausea or vomiting. GENITOURINARY: . PULMONARY: Negative. CONSTITUTIONAL: Negative. PHYSICAL EXAMINATION: GENERAL: Shows to be a middle-aged gentleman, in no respiratory distress, lying flat. NECK: Supple. No jugular venous distention. LUNGS: Clear to auscultation anteriorly. CARDIAC: S1 and S2 is normal. Regular rate and rhythm. No heaves, thrills, or gallops noted. ABDOMEN: Soft and nontender. Positive bowel sounds. EXTREMITIES: There is no edema distally. The patient has dressing on the right leg. LABORATORY VALUES: His laboratory values preoperatively were reviewed, no significant abnormalities were noted. ASSESSMENT: 1. Right knee scar tissue, status post removal. 2. History of hyperlipidemia. PLAN: This patient was seen in internal medicine cardiac consultation. The patient will have DVT prophylaxis with the use of Lovenox as ordered by Dr. Adler. The patient is on intravenous fluids until he resumes p.o. intake. Pain management will be provided by Dr. Cruz. Should he be ambulatory soon, he will be discharged home once he is able to tolerate p.o. and is ambulatory. Eitan Rosenberg M.D. DR: LULA JOB#: [id number] CC:
[2017-07-31] MEDS ORDERED: Magnesium Citrate Liq Btl ORAL PRN (08:45)
[2017-07-31] MEDS ORDERED: oxyCODONE 5mg IR tab ORAL ONE (09:30)
[2017-07-31] MEDS: Sennosides 8.6mg ORAL SCH ×2 (09:32→17:31)
[2017-07-31] MEDS: Docusate 100mg/10ml Liq NG SCH ×2 (09:32→17:31)
[2017-07-31] MEDS: Enoxaparin 40mg Inj SUBQ SCH (09:33)
[2017-07-31] MEDS ORDERED: Ketorolac 30mg Inj IV ONE (11:00)
[2017-07-31 12:00] VITALS: BP 128/87
--- NOTE | 2017-07-31 14:28 | 48 Hour Post Anesthesia Eval ---
Post Anesthesia Evaluation Procedure: Right knee scar tissue removal and liner exchange Date of Evaluation: Jul 31, 2017 Time of Evaluation: 14:27 Blood Pressure Systolic: 136 0: 71 Pulse Rate: 68 Respiratory Rate: 20 Temperature (Fahrenheit): 97.6 O2 Sat by Pulse Oximetry: 98 Airway: patent Nausea: No Vomiting: No Pain Intensity: 3 Hydration Status: adequate Cardiopulmonary Status: stable Mental Status/LOC: patient returned to baseline Follow-up Care/Observations: n/a Post-Anesthesia Complications: none Follow-up care needed: N/A SHWETA CHANCE M.D. Jul 31, 2017 14:28
[2017-07-31 16:00] VITALS: BP 108/72
[2017-07-31] MEDS: oxyCODONE 5mg IR tab ORAL PRN ×2 (17:32→22:53)
--- NOTE | 2017-07-31 19:45 | Cardiology Progress Note ---
Assessment/Plan Assessment/Plan 1. Right knee scar tissue, status post removal. 2. History of hyperlipidemia. pain management per dr jolley ice PT when ok with dr alvarez dvt ppx watch wbc to discuss with dr alvarez Subjective Cardiovascular: Denies: chest pain, lightheadedness, palpitations Respiratory: Denies: shortness of breath Gastrointestinal/Abdominal: Denies: abdominal pain Genitourinary: Denies: burning Objective Last 24 Hour Vital Signs Date Time Temp Pulse Resp B/P (MAP) Pulse Ox O2 Delivery O2 Flow Rate FiO2 07/31/17 16:00 98.6 96 19 108/72 97 07/31/17 14:28 68 20 98 07/31/17 12:00 97.8 98 19 128/87 07/31/17 08:00 98.0 100 20 142/90 98 07/31/17 04:39 98.4 102 20 131/84 95 07/31/17 00:26 98.4 100 18 135/82 96 07/30/17 20:00 98.5 102 20 132/88 97 General Appearance: alert Neck: no JVD Cardiovascular: normal rate, regular rhythm Respiratory/Chest: lungs clear, normal breath sounds Abdomen: normal bowel sounds, non tender, soft Extremities: no swelling Intake and Output 07/30/17 07/31/17 19:00 07:00 Intake Total 1000 ml 1155 ml Output Total 50 ml Balance 950 ml 1155 ml Intake Oral 480 ml IV Total 1000 ml 675 ml Output Estimated Blood Loss 50 ml # Voids 1 3 # Bowel Movements 1 Laboratory Tests Test 07/31/17 05:20 White Blood Count 17.7 K/UL (4.8-10.8) H Red Blood Count 4.06 M/UL (4.70-6.10) L Hemoglobin 11.7 G/DL (14.2-18.0) L Hematocrit 36.5 % (42.0-52.0) L Mean Corpuscular Volume 90 FL (80-99) Mean Corpuscular Hemoglobin 28.8 PG (27.0-31.0) Mean Corpuscular Hemoglobin Concent 32.1 G/DL (32.0-36.0) Red Cell Distribution Width 16.1 % (11.6-14.8) H Platelet Count 309 K/UL (150-450) Mean Platelet Volume 6.5 FL (6.5-10.1) Neutrophils (%) (Auto) 70.7 % (45.0-75.0) Lymphocytes (%) (Auto) 18.3 % (20.0-45.0) L Monocytes (%) (Auto) 10.8 % (1.0-10.0) H Eosinophils (%) (Auto) 0.0 % (0.0-3.0) Basophils (%) (Auto) 0.2 % (0.0-2.0) Prothrombin Time 10.1 SEC (9.30-11.50) Prothromb Time International Ratio 1.0 (0.9-1.1) ANGELIQUE OROZCO Jul 31, 2017 19:45
[2017-07-31 20:00] VITALS: BP 112/74
--- NOTE | 2017-07-31 22:00 | Progress Note ---
DATE: 07/31/2017 ACUTE PAIN MANAGEMENT PHYSICIAN PROGRESS NOTE MEDICATIONS: Medication administration record reviewed. Medications include Protonix and Lovenox. P.r.n. medications include Dilaudid, Chloraseptic spray, Catapres, [place], Benadryl, Zofran, Mylanta, milk of magnesia and Ambien. OBJECTIVE: VITAL SIGNS: Afebrile, pulse 100, respirations 20, blood pressure 142/90, and oxygen saturation 98% on room air. LABORATORY STUDIES: From this morning, 07/31/2017 shows elevated white count 18, post-operative reactive hematocrit 37, and platelets 310. INR is 1.0. I saw the patient at the bedside. I discussed the case with the surgeon, Dr. Gonzalez along with the hospitalist, Dr. Rosenberg. I spoke with the overnight nurse, EHSAN Christensen along with the day nurse, EHSAN Wright. Since my last visit with the patient yesterday evening, the patient has been doing better. Frequent dosing of the subcutaneous Dilaudid injections of 1.5 mg Dilaudid every 3 to 4 hours has helped to improve his pain symptoms somewhat. He has been able to limp to the restroom 2 or 3 times. The patient states that the pain continues to be considerable. Dr. Gonzalez told the patient that there was extensive knee scarring found in the operation yesterday, which might explain the significant pain and postoperative knee swelling. The dressing is somewhat bloodied and I have forwarded a photograph over to Dr. Gonzalez for inspection. Dr. Gonzalez already spoke with the patient earlier this morning to check on the patient's condition. The patient does have an elevated white count. So, I will encourage aggressive incentive spirometer usage and order to recheck the CBC in the morning. I was concerned that the patient would be unable to obtain an outpatient pain prescription. While I was in the room with the patient, he telephoned his local pharmacy in [facility]. The pharmacy does have Percocet available in stock, so I have given the patient a prescription for Percocet 10/325 mg tablets quantity 75, which his fiancee will drop off at the pharmacy within the next 24 hours to ease dispensing. The patient has a supply of Caddo already at home. Since the patient has been requiring significant doses of subcutaneous Dilaudid here in the hospital, I am uncertain if the [place] 10/325 mg tablets will be adequate for pain control. Instead I have decided to use oxycodone while I will trial him on a 50 mg dose of instant release oxycodone 90 minutes after his last subcutaneous Dilaudid injection for tolerability and efficacy. I would then continue the dosing of oxycodone every 3 hours p.r.n. for moderate pain. I did encourage the patient to use the oral pills as much as possible and to restrict the subcutaneous parenteral narcotic injection for extraordinary pain circumstances. This way the patient can try to transition on to oral narcotics to help expedite discharge planning. With the patient's elevated white count and his significant limited mobility, I will defer discharge planning at this time to the surgeon, Dr. Gonzalez. Dave Cruz M.D. DR: ANKIT JOB#: [id number] CC:
[2017-08-01 04:00] VITALS: BP 127/87
[2017-08-01] MEDS: oxyCODONE 5mg IR tab ORAL PRN ×2 (04:23→09:06)
[2017-08-01 06:56] LABS: BASOPHILS % (AUTO) 0.9 % (0.0-2.0); EOSINOPHILS % (AUTO) 0.8 % (0.0-3.0); LYMPHOCYTES % (AUTO) 41.1 % (20.0-45.0); MEAN CORPUSCULAR HEMOGLOBIN 28.8 PG (27.0-31.0); MEAN CORPUSCULAR HGB CONC 32.1 G/DL (32.0-36.0); MEAN CORPUSCULAR VOLUME 90 FL (80-99); MEAN PLATELET VOLUME 6.2 FL (6.5-10.1); MONOCYTES % (AUTO) 8.5 % (1.0-10.0); NEUTROPHILS % (AUTO) 48.7 % (45.0-75.0); PLATELET COUNT 241 K/UL (150-450); RED BLOOD COUNT 3.58 M/UL (4.70-6.10); RED CELL DISTRIBUTION WIDTH 16.1 % (11.6-14.8); WHITE BLOOD COUNT 10.9 K/UL (4.8-10.8)
[2017-08-01 08:26] VITALS: BP 121/82
[2017-08-01] MEDS: Docusate 100mg/10ml Liq NG SCH ×2 (09:04→18:43)
[2017-08-01] MEDS: Sennosides 8.6mg ORAL SCH ×2 (09:05→18:00)
[2017-08-01] MEDS: Enoxaparin 40mg Inj SUBQ SCH (09:07)
[2017-08-01 12:00] VITALS: BP 123/68
--- NOTE | 2017-08-01 14:20 | Cardiology Progress Note ---
Assessment/Plan Assessment/Plan 1. Right knee scar tissue, status post removal. 2. History of hyperlipidemia. pain management per dr jolley ice PT when ok with dr alvarez dvt ppx now on lovenox but at home xarelto 10 mg dialy to compelte total of 12 days post op wbc better home hoepfully on friday Subjective Cardiovascular: Denies: chest pain, irregular heart rate, lightheadedness, palpitations Respiratory: Denies: shortness of breath, SOB with excertion Gastrointestinal/Abdominal: Denies: abdominal pain, constipated Genitourinary: Denies: burning Subjective has stiffness in his knee Objective Last 24 Hour Vital Signs Date Time Temp Pulse Resp B/P (MAP) Pulse Ox O2 Delivery O2 Flow Rate FiO2 08/01/17 12:00 98.1 78 20 123/68 99 Room Air 08/01/17 08:26 99.1 92 20 121/82 99 08/01/17 04:00 98.2 81 18 127/87 98 Room Air 07/31/17 20:00 98.0 90 18 112/74 96 Room Air 07/31/17 16:00 98.6 96 19 108/72 97 07/31/17 14:28 68 20 98 General Appearance: no apparent distress, alert Neck: supple Cardiovascular: normal rate, regular rhythm Respiratory/Chest: lungs clear, normal breath sounds Abdomen: normal bowel sounds, non tender, soft Extremities: no swelling Intake and Output 07/31/17 08/01/17 19:00 07:00 Intake Total 800 ml 360 ml Balance 800 ml 360 ml Intake Oral 800 ml 360 ml # Voids 3 3 Laboratory Tests Test 08/01/17 04:55 White Blood Count 10.9 K/UL (4.8-10.8) H Red Blood Count 3.58 M/UL (4.70-6.10) L Hemoglobin 10.3 G/DL (14.2-18.0) L Hematocrit 32.1 % (42.0-52.0) L Mean Corpuscular Volume 90 FL (80-99) Mean Corpuscular Hemoglobin 28.8 PG (27.0-31.0) Mean Corpuscular Hemoglobin Concent 32.1 G/DL (32.0-36.0) Red Cell Distribution Width 16.1 % (11.6-14.8) H Platelet Count 241 K/UL (150-450) Mean Platelet Volume 6.2 FL (6.5-10.1) L Neutrophils (%) (Auto) 48.7 % (45.0-75.0) Lymphocytes (%) (Auto) 41.1 % (20.0-45.0) Monocytes (%) (Auto) 8.5 % (1.0-10.0) Eosinophils (%) (Auto) 0.8 % (0.0-3.0) Basophils (%) (Auto) 0.9 % (0.0-2.0) Prothrombin Time 10.0 SEC (9.30-11.50) Prothromb Time International Ratio 1.0 (0.9-1.1) Microbiology Date/Time Source Procedure Growth Status 07/30/17 12:25 Nasal Nares MRSA Culture - Final NO METHICILLIN RESISTANT STAPH AUREUS... Complete ANGELIQUE OROZCO Aug 01, 2017 14:20
--- NOTE | 2017-08-01 14:34 | General Progress Note ---
Progress Note Progress Note Doing well co swelling neurovascular intact doing physio cpm 85 KIET ECHOLS Aug 01, 2017 14:34
[2017-08-01] MEDS ORDERED: Ketorolac 30mg Inj IV ONE (14:45)
[2017-08-01 16:00] VITALS: BP 120/88
--- NOTE | 2017-08-01 16:46 | Progress Note ---
DATE: 08/01/2017 ACUTE PAIN MANAGEMENT PHYSICIAN PROGRESS NOTE MEDICATIONS: Medication administration record reviewed. Medications include Colace, Protonix, Senokot, and Lovenox. P.r.n. medications include Dilaudid, Chloraseptic, Catapres, Benadryl, Zofran, Mylanta, milk of magnesia, Ambien, oxycodone, and magnesium citrate. LABORATORY STUDIES: From this morning, 08/01/2017, shows improved white count to 10.9, hematocrit 32, and platelets 241,000. INR 1.0. OBJECTIVE: VITAL SIGNS: Within normal limits. Afebrile, pulse 92, respirations 20, blood pressure 121/82, and oxygen saturation 99% on room air. I saw the patient at the bedside. I discussed the case with the nurse, EHSAN Baptiste, along with the surgeon, Dr. Aurelio Gonzalez. Yesterday, there was some mild blood oozing through the dressing. I discussed with the surgeon, Dr. Gonzalez, to ask that the knee dressing be changed. I spoke with the charge nurse, EHSAN Becerril, who ordered for supply, sterile water along with dressing supplies including Karsten bandages, sterile 4 x 4 gauze, and Vaseline gauze. The knee dressing was removed by the nurse, who irrigated the wound. The staple line was clean and dry with very small midline area of some very mild blood oozing. Dr. Gonzalez was sent a photograph of this site and was pleased with the condition. The leg wound was then redressed by the nurse without complications. The surgeon, Dr. Gonzalez, will evaluate the patient later this morning. The patient has been ambulating with physical therapy. The patient was complaining that the knee dressing was very tight. Dr. Gonzalez permitted the Karsten bandage dressing to be loosened somewhat. The patient has had improved pain complaints over the past 48 hours. He still continues to use the oral oxycodone at a dose of 50 mg, which I recommended, has been effective and he has been significantly decreasing the requirements of subcutaneous Dilaudid injections. 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 The patient's girlfriend will rock picker the prescription for Percocet, which I wrote yesterday. I will defer discharge planning to the surgeon. I will continue the current analgesic plan at this time. I also discussed the case with the hospitalist, Dr. Rosenberg. Dave Cruz M.D. DR: CLARIBEL JOB#: [id number] CC:
[2017-08-01 20:00] VITALS: BP 119/80
[2017-08-02] VITALS: BP 119/85
[2017-08-02 04:00] VITALS: BP 126/81
[2017-08-02 08:00] VITALS: BP 133/86
[2017-08-02 08:02] LABS: BASOPHILS % (AUTO) 0.7 % (0.0-2.0); EOSINOPHILS % (AUTO) 1.7 % (0.0-3.0); LYMPHOCYTES % (AUTO) 36.1 % (20.0-45.0); MEAN CORPUSCULAR HEMOGLOBIN 28.8 PG (27.0-31.0); MEAN CORPUSCULAR HGB CONC 32.3 G/DL (32.0-36.0); MEAN CORPUSCULAR VOLUME 89 FL (80-99); MEAN PLATELET VOLUME 6.1 FL (6.5-10.1); MONOCYTES % (AUTO) 8.4 % (1.0-10.0); NEUTROPHILS % (AUTO) 53.2 % (45.0-75.0); PLATELET COUNT 241 K/UL (150-450); RED BLOOD COUNT 3.65 M/UL (4.70-6.10); RED CELL DISTRIBUTION WIDTH 15.8 % (11.6-14.8); WHITE BLOOD COUNT 7.5 K/UL (4.8-10.8)
[2017-08-02 08:16] LABS: INR 0.9 (0.9-1.1); PROTHROMBIN TIME 9.5 SEC (9.30-11.50)
[2017-08-02] MEDS: Sennosides 8.6mg ORAL SCH (08:29)
[2017-08-02] MEDS: Docusate 100mg/10ml Liq NG SCH (08:30)
[2017-08-02] MEDS ORDERED: Milk of Magnesia 30ml Ud ORAL PRN (08:30)
[2017-08-02] MEDS ORDERED: Milk of Magnesia 30ml Ud ORAL ONE (08:30)
[2017-08-02] MEDS: Enoxaparin 40mg Inj SUBQ SCH (08:31)
[2017-08-02] MEDS ORDERED: Ketorolac 30mg Inj IV ONE (09:00)
[2017-08-02] MEDS: oxyCODONE 5mg IR tab ORAL PRN (09:37)
--- NOTE | 2017-08-02 10:30 | Progress Note ---
DATE: 08/02/2017 ACUTE PAIN MANAGEMENT PHYSICIAN PROGRESS NOTE VITAL SIGNS: Within normal limits. Afebrile, pulse 86, respirations 18, blood pressure 126/81, and oxygen saturation 97% on room air. LABORATORY DATA: Laboratory studies from this morning, 08/02/2017, shows normal white count of 8, hematocrit 33, and platelets 241,000. INR pending. MEDICATIONS: Medication administration record reviewed. Medications include Colace, Protonix, Senokot, and Lovenox. P.r.n. medications include Dilaudid, Chloraseptic, Catapres, Benadryl, Zofran, Mylanta, milk of magnesia, Ambien, Roxicodone, and magnesium citrate. I saw the patient at the bedside. I discussed the case with the overnight nurse, EHSAN David, and the day nurse as well along with the charge nurse, EHSAN Chong. The patient looks much improved this morning. He continues to ambulate as much as he can. He still is having significant difficulty fully bending his knee. The surgeon, Dr. Gonzalez, is following this matter closely and will see the patient later this morning. Dr. Gonzalez, the surgeon, did evaluate the patient yesterday here in the hospital as well. The patient's fiancee did pick up attendant the prescription for Percocet yesterday which I provided. The patient does not believe he will have any difficulty obtaining the prescription filled from his local pharmacy near [place]. The patient still has not yet had a bowel movement. I have asked the assistant in nursing to provide both coffee and more prune juice to the bedside. I asked the patient if he would accept a milk of magnesia trial, and the patient did. I have ordered a dose of milk of magnesia at the bedside. The patient has not required breakthrough Dilaudid injection for over 36 hours. He will continue with p.o. oxycodone as needed. Dr. Gonzalez still has the patient on Lovenox for DVT prophylaxis. I will defer surgical followup to Dr. Gonzalez. Dave Cruz M.D. DR: CHARLIE/PM JOB#: [id number] CC:
[2017-08-02 12:00] VITALS: BP 133/63
--- NOTE | 2017-08-02 16:52 | Cardiology Progress Note ---
Assessment/Plan Assessment/Plan stable for discharge gave Rx for xarelto 10 mg he has pain medications at home he knows his follow up plan Subjective Subjective the patient feels good and he wants to go home has mild pain Objective Last 24 Hour Vital Signs Date Time Temp Pulse Resp B/P (MAP) Pulse Ox O2 Delivery O2 Flow Rate FiO2 08/02/17 12:00 98.0 89 20 133/63 99 Room Air 08/02/17 08:00 97.4 109 20 133/86 99 Room Air 08/02/17 04:00 97 Room Air 08/02/17 04:00 98.0 86 18 126/81 97 08/02/17 00:00 97.9 106 18 119/85 95 08/02/17 00:00 95 Room Air 08/01/17 20:00 97 Room Air 08/01/17 20:00 98.3 92 18 119/80 97 General Appearance: no apparent distress EENT: PERRL/EOMI Neck: non-tender, no JVD Rhythm: NSR Cardiovascular: normal rate Respiratory/Chest: lungs clear Extremities: other Intake and Output 08/01/17 08/02/17 19:00 07:00 Intake Total 840 ml 360 ml Balance 840 ml 360 ml Intake Oral 840 ml 360 ml # Voids 4 3 Laboratory Tests Test 08/02/17 06:52 White Blood Count 7.5 K/UL (4.8-10.8) Red Blood Count 3.65 M/UL (4.70-6.10) L Hemoglobin 10.5 G/DL (14.2-18.0) L Hematocrit 32.5 % (42.0-52.0) L Mean Corpuscular Volume 89 FL (80-99) Mean Corpuscular Hemoglobin 28.8 PG (27.0-31.0) Mean Corpuscular Hemoglobin Concent 32.3 G/DL (32.0-36.0) Red Cell Distribution Width 15.8 % (11.6-14.8) H Platelet Count 241 K/UL (150-450) Mean Platelet Volume 6.1 FL (6.5-10.1) L Neutrophils (%) (Auto) 53.2 % (45.0-75.0) Lymphocytes (%) (Auto) 36.1 % (20.0-45.0) Monocytes (%) (Auto) 8.4 % (1.0-10.0) Eosinophils (%) (Auto) 1.7 % (0.0-3.0) Basophils (%) (Auto) 0.7 % (0.0-2.0) Prothrombin Time 9.5 SEC (9.30-11.50) Prothromb Time International Ratio 0.9 (0.9-1.1) RICHA HERRERA Aug 02, 2017 16:52
[2017-08-02] MEDS ORDERED: XARELTO20 MG ORAL (17:13)
--- NOTE | 2017-08-06 12:00 | Operative Note - Dictated ---
NOTE: POOR AUDIO QUALITY PREOPERATIVE DIAGNOSIS: Right knee scar, status post revision. POSTOPERATIVE DIAGNOSES: 1. Right knee revision, removal of scar. 2. Right knee liner exchange from 17 down to a 12. 3. Right knee manipulation under anesthesia. SURGEON: Aurelio Gonzalez M.D. MANAGER FLOAT: Unknown. FLATWORK FEEDER: None PREOPERATIVE NOTE: This is a pleasant gentleman who had an initial surgery for external rotation deformity done by Dr. Royal Baumann and resulting instability and severe pain for approximately eight months. had a revision and alignment corrected. He did very well for the first six weeks and it scarred up aggressively and this resulted in failed . I explained to him the surgery and risks being infection, bleeding, anesthetic risks, and failure of the surgery. The patient agreed and consents were obtained. OPERATIVE ROOM NOTE: Under the benefit of endotracheal intubation and general anesthetic, the patient's knee was prepped and draped in an appropriate manner, . We proceeded to incise through subcutaneous tissue down through medial retinaculum, everted the patella removing copious amounts of scar. At this point, gutters. After doing such, 17 and changed it to trial 14 and 12, accepting the 12. I removed the screw and placed extension. Then also stability. I irrigated the wound copiously closing the retinaculum with #1 Ethibond, subcutaneous tissue with 2-0 Vicryl, and skin with yamileth. The patient went to recovery room in stable condition. No other complications. Modifier 22 secondary to difficulty due to multiple surgeries. Aurelio Gonzalez M.D. DR: THEO JOB#: [id number] CC:
--- NOTE | 2017-08-06 20:38 | Discharge Summary ---
Discharge Summary Hospital Course Date of Admission Jul 30, 2017 at 11:27 Date of Discharge Aug 02, 2017 at 17:31 Admitting Diagnosis right knee scar, s/p revision Reason for Hospitalization: elective surgery HPI Bebo Darden is a 52 year old male who was admitted on Jul 30, 2017 at 11:27 for Rt Knee scar and, s/p revisiion for elective surgery Consultations - IM/cardio - pain specialist Procedures s/p 07/[address] ECHOLS,KIET Right knee revision Jul 30, 2017 13:08 Hospital Course s/p surgery course of recovery uneventful neurovascular intact pain management, pain specialist followed pain controlled dressing clean and intact, edema decreasing DVT prophayxlis ambulated with PT CPM, tolerated well initially with IVF until tolerated diet, a/emetic prn GI prophylaxis voided freely stable for dc home with outpatient fup with surgeon as advised FINAL DIAGNOSIS 1. Right knee revision, removal of scar. 2. Right knee liner exchange from 17 down to a 12. 3. Right knee manipulation under anesthesia. 4. s/p Right knee scar tissue removal and liner exchange Discharge Medications Continued Medications: Rivaroxaban (Xarelto) 20 Mg Tablet 10 MG ORAL DAILY for 14 Days, MG 0 Refills Discharge Condition Upon Discharge: stable Discharge Disposition Patient was discharged to Home () Discharge Diagnoses: Discharge Instructions Discharge Instructions Special Instructions I have been assigned to complete a D/C Summary on this account. I was not involved in the patient management Carey Cummins NP (Vanchtein) Aug 06, 2017 20:38
== END 2017-08-02 17:31 | disposition home or self-care (01) | DRG 465 ==
LOC: 3E 11:27 → SUR 11:27 → EDSTATUS 13:00
PROC: 0SPC09Z Removal of Liner from Right Knee Joint, Open Approach (ICD-10-PCS; principal; 2017-07-30 13:00)
PROC: 0SUC09Z Supplement Right Knee Joint with Liner, Open Approach (ICD-10-PCS; principal; 2017-07-30 13:00)
PROC: 0SNCXZZ Release Right Knee Joint, External Approach (ICD-10-PCS; principal; 2017-07-30 13:00)
PROC: 0YBF0ZZ Excision of Right Knee Region, Open Approach (ICD-10-PCS; principal; 2017-07-30 13:00)
DX: T84.82XA Fibrosis due to internal orthopedic prosthetic devices, implants and grafts, initial encounter (principal); E78.5 Hyperlipidemia, unspecified; G89.18 Other acute postprocedural pain; Y83.8 Other surgical procedures as the cause of abnormal reaction of the patient, or of later complication, without mention of misadventure at the time of the procedure; M19.90 Unspecified osteoarthritis, unspecified site
CPT/HCPCS: 36415; 85025; 85610; 86850; 86900; 86901; 86920; 87081; 94003; 94150; J2250; J2405; J2765

== ENCOUNTER 2017-08-25 05:41 | Inpatient (IN) | payer BC ==
[2017-08-25] VITALS (13 sets, daily range): BP systolic 116–169; BP diastolic 59–103
[~2017-08-25] VITALS: Ht 182.9 cm; Wt 81.6 kg
[~2017-08-25 05:41] MED LIST changes: +XARELTO20 MG ORAL
[2017-08-25] MEDS ORDERED: Bupivacaine 0.5% Inj 30 ml vial INJ ONE (06:36)
[2017-08-25] MEDS ORDERED: Bacitracin 50000 Units Vial ONE ×2 (06:36→09:16)
[2017-08-25] MEDS ORDERED: Lidocaine 1% 10mg/ml/Epi 0.005mg/ml 30ml vial INJ ONE (06:36)
[2017-08-25] MEDS ORDERED: NeoSporin Gu Irrig 1ml Amp IRRIG ONE ×2 (06:36→09:16)
--- NOTE | 2017-08-25 07:08 | Pre-Procedure Note/Attestation ---
Pre-Procedure Note/Attestation Complete Prior to Procedure Planned Procedure: right Procedure Narrative: right quads repair Indications for Procedure Pre-Operative Diagnosis: right quqds rupture Attestation I attest that I discussed the nature of the procedure; its benefits; risks and complications; and alternatives (and the risks and benefits of such alternatives ), prior to the procedure, with the patient (or the patient's legal payable representative). I attest that, if there was a reasonable possibility of needing a blood transfusion, the patient (or the patient's legal payable representative) was given the [facility] standardized written summary, pursuant to the Nigel Cisco Blood Safety Act ([place] Health and Safety Code # 1645, as amended). I attest that I re-evaluated the patient just prior to the surgery and that there has been no change in the patient's H&P, except as documented below: KIET ECHOLS Aug 25, 2017 07:08
[2017-08-25] MEDS ORDERED: HYDROmorphone 1mg/ml Carpuject SUBQ PRN (07:15)
--- NOTE | 2017-08-25 07:17 | Anethesia Preoperative Eval ---
Anesthesia Pre-op PMH/ROS General Date of Evaluation: Aug 25, 2017 Time of Evaluation: 07:15 Anesthesiologist: Anurag ASA Score: ASA 2 Mallampati Score Class I : Soft palate, uvula, fauces, pillars visible Class II: Soft palate, uvula, fauces visible Class III: Soft palate, base of uvula visible Class IV: Only hard plate visible Mallampati Classification: Class II Surgeon: Carissa Diagnosis: R knee pain Surgical Procedure: R quadriceps repair Anesthesia History: PONV Family History: no anesthesia problems Allergies: Coded Allergies: No Known Allergies (Unverified , 08/25/17) Medications: see eMAR Past Medical History Cardiovascular: Denies: HTN, CAD, [place], valve dz, arrhythmia, other Pulmonary: Denies: asthma, COPD, FRED, other Gastrointestinal/Genitourinary: Reports: GERD - mild, Denies: CRI, ESRD, other Neurologic/Psychiatric: Reports: depression/anxiety, Denies: dementia, CVA, TIA, other Endocrine: Denies: DM, hypothyroidism, steroids, other HEENT: Denies: cataract (L), cataract (R), glaucoma, QUECHAN (L), QUECHAN (R), other Hematology/Immune: Denies: anemia, DVT, bleeding disorder, other Musculoskeletal/Integumentary: Denies: OA, RA, DJD, DDD, edema, other PSxH Narrative: see H&P Anesthesia Pre-op Phys. Exam Physician Exam Last Vital Signs Date Time Temp Pulse Resp B/P (MAP) Pulse Ox O2 Delivery O2 Flow Rate FiO2 08/25/17 06:22 98.9 77 18 116/75 98 Room Air Constitutional: NAD Cardiovascular: RRR, no M/R/G Respiratory: CTA Gastrointestinal: S/NT/ND Airway Exam Mallampati Score: Class II MO: full Neck: flexible ROM: full Teeth: intact Dentures: no upper, no lower Anesthesia Pre-op A/P Labs see chart Studies Pre-op Studies: EKG - NSR Risk Assessment & Plan Assessment: ASA 2 Plan: GA with LMA Status Change Before Surgery: No Pre-Antibiotics Drug: Ancef 2gr. Given Within 1 Hr of Incision: Yes Time Given: 07:50 SHWETA CHANCE M.D. Aug 25, 2017 07:17
[2017-08-25] MEDS ORDERED: LR 1000ml 1,000 ML IVLG SCH (08:04)
[2017-08-25] MEDS ORDERED: Midazolam 2mg/2ml Inj IVP PRN (08:15)
[2017-08-25] MEDS ORDERED: Hydromorphone 0.5mg/0.5ml inj IVP PRN (08:15)
[2017-08-25] MEDS ORDERED: Ketorolac 30mg Inj IV PRN (08:15)
[2017-08-25] MEDS ORDERED: DiphenhydrAMINE 50mg/ml Inj IVP PRN (08:15)
[2017-08-25] MEDS ORDERED: Meperidine 50mg/ml Inj(FOR RIGORS ONLY) IV PRN ×2 (08:15)
--- NOTE | 2017-08-25 09:00 | Immediate Post-Op Evaluation ---
Immediate Post-Op Evalulation Immediate Post-Op Evalulation Procedure: R knee Quadriceps repair Date of Evaluation: Aug 25, 2017 Time of Evaluation: 08:59 IV Fluids: 1200 Blood Products: none Estimated Blood Loss: 100 Urinary Output: none Blood Pressure Systolic: 143 Blood Pressure Diastolic: 86 Pulse Rate: 88 Respiratory Rate: 20 O2 Sat by Pulse Oximetry: 99 Temperature (Fahrenheit): 97.6 Pain Score (1-10): 2 Nausea: No Vomiting: No Complications none Patient Status: reacts, patent, none Hydration Status: adequate SHWETA CHANCE M.D. Aug 25, 2017 09:00
[2017-08-25] MEDS ORDERED: D5 1/2NS w/KCl 20mEq 1,000 ML IV SCH (12:00)
[2017-08-25] MEDS: ceFAZolin sod 1 GM in D5W 55 ML IV SCH (16:26)
--- NOTE | 2017-08-25 20:31 | Cardiology Progress Note ---
Assessment/Plan Assessment/Plan full note dictated anit emetic dvt ppx declines injectable pain meds bp elevated but likely reactive or related to saline will dc ivf Objective Last 24 Hour Vital Signs Date Time Temp Pulse Resp B/P (MAP) Pulse Ox O2 Delivery O2 Flow Rate FiO2 08/25/17 16:00 97.1 81 19 153/95 100 08/25/17 12:08 98.0 86 17 132/85 98 Nasal Cannula 08/25/17 10:10 98.2 90 17 138/86 98 Nasal Cannula 08/25/17 09:50 97.6 90 16 169/86 98 Nasal Cannula 3.0 08/25/17 09:40 100 14 167/84 98 Nasal Cannula 3.0 08/25/17 09:30 102 12 143/103 98 Simple Mask 6.0 08/25/17 09:20 97 13 138/94 100 Simple Mask 6.0 08/25/17 09:10 87 12 153/59 100 Simple Mask 6.0 08/25/17 09:05 88 18 136/85 100 Simple Mask 6.0 08/25/17 09:00 88 18 136/85 100 Simple Mask 6.0 08/25/17 09:00 88 20 99 08/25/17 08:53 97.9 91 18 138/100 100 Simple Mask 6.0 08/25/17 06:22 98.9 77 18 116/75 98 Room Air Intake and Output 08/24/17 08/25/17 19:00 07:00 # Voids 1 ANGELIQUE OROZCO Aug 25, 2017 20:31
[2017-08-25] MEDS: Enoxaparin 40mg Inj SUBQ SCH (21:04)
[2017-08-25] MEDS ORDERED: Norco 5mg/325mg tab ORAL PRN (23:00)
[2017-08-25] MEDS ORDERED: Morphine Sulfate 2mg/ml Inj IVP PRN (23:00)
[2017-08-26] VITALS: BP 109/70
[2017-08-26] MEDS: ceFAZolin sod 1 GM in D5W 55 ML IV SCH (00:08)
[2017-08-26] MEDS: HYDROcodone/Acetamin 10/325 tab ORAL PRN ×4 (02:53→20:23)
[2017-08-26 04:00] VITALS: BP 111/65
--- NOTE | 2017-08-26 07:15 | Consultation ---
DATE OF CONSULTATION: 08/25/2017 NOTE: POOR AUDIO CARDIOLOGY CONSULTATION CONSULTING PHYSICIAN: Eitan Rosenberg M.D. REFERRING PHYSICIAN: Aurleio Gonzalez M.D. REASON FOR REFERRAL: Postoperative medical care. HISTORY OF PRESENT ILLNESS: This is a middle-aged gentleman, who has been admitted for repair of his quadriceps muscle as a result of activity induced and underwent repair of the quadriceps today. I am seeing him postoperatively for medical followup. The patient does not have any chest pain or shortness of breath. No palpitations. There is dizzy after he took some pain medication and he wants antiemetics muscular pain medication at this time. No heart pounding or palpitations. PAST MEDICAL HISTORY: Positive for history of arthritis, hyperlipidemia, and prior knee issues for which he has undergone surgery by Dr. Carey on prior occasions and he has tolerated both procedures well. ALLERGIES: He has no known drug allergies. SOCIAL HISTORY: Indicates he rarely drinks alcoholic beverages. REVIEW OF SYSTEMS: GASTROINTESTINAL: Positive for nausea. No vomiting. No diarrhea. No bloody stools. GENITOURINARY: Negative. CONSTITUTIONAL: Negative. PHYSICAL EXAMINATION: GENERAL: Shows to be a gentleman, in no apparent distress. NECK: Supple. No jugular venous distention. LUNGS: Clear to auscultation and percussion. CARDIAC: Regular rate and rhythm. No heaves, thrills, gallops, or rubs are noted. EXTREMITIES: There is no clubbing, cyanosis, or edema. LABORATORY AND DIAGNOSTIC DATA: Preoperative labs were noted. Hemoglobin 13, white count of 5.4. His creatinine was 1.09. His liver function tests look normal. ASSESSMENT AND PLAN: Quadriceps injury, now status post repair. Postoperatively, the patient is doing well and nausea secondary to pain medication. He no longer wants to get any injectable pain medication. We will try some Tylenol if he wishes to use, not very strong pain medications. Postoperative care with early ambulation and allowed by Dr. Aurelio Gonzalez. DVT prophylaxis. Eitan Rosenberg M.D. DR: Nicole JOB#: [id number] CC:
[2017-08-26 07:37] LABS: BASOPHILS % (AUTO) 0.8 % (0.0-2.0); EOSINOPHILS % (AUTO) 1.5 % (0.0-3.0); HEMATOCRIT 33.9 % (42.0-52.0); HEMOGLOBIN 10.9 G/DL (14.2-18.0); LYMPHOCYTES % (AUTO) 37.7 % (20.0-45.0); MEAN CORPUSCULAR VOLUME 90 FL (80-99); MONOCYTES % (AUTO) 10.7 % (1.0-10.0); NEUTROPHILS % (AUTO) 49.3 % (45.0-75.0); PLATELET COUNT 316 K/UL (150-450); RED BLOOD COUNT 3.77 M/UL (4.70-6.10); RED CELL DISTRIBUTION WIDTH 14.9 % (11.6-14.8); WHITE BLOOD COUNT 9.7 K/UL (4.8-10.8)
[2017-08-26 08:00] VITALS: BP 119/81
[2017-08-26] MEDS ORDERED: fentaNYL 100 mcg/2 mL IV ONE (09:28)
[2017-08-26] MEDS ORDERED: Midazolam 2mg/2ml Inj ONE (09:28)
[2017-08-26] MEDS ORDERED: Morphine Sulfate 10mg/ml Inj ONE (09:28)
[2017-08-26] MEDS ORDERED: Ketorolac 30mg Inj ONE (09:28)
[2017-08-26] MEDS ORDERED: LR 1000ml ONE (09:28)
[2017-08-26] MEDS ORDERED: Propofol 200mg/20ml IV ONE (09:28)
[2017-08-26] MEDS ORDERED: Sterile Water Irrig 1000ml IRRIG ONE (09:43)
[2017-08-26] MEDS ORDERED: NS Irrig 1000ml ONE (09:43)
[2017-08-26 11:57] VITALS: BP 115/71
[2017-08-26 16:00] VITALS: BP 136/89
--- NOTE | 2017-08-26 16:32 | Cardiology Progress Note ---
Assessment/Plan Assessment/Plan quadricep injury s/p repair dvt ppx pain meds home when ok with dr alvarez hgb seems little low but not sig different than prior bp i fine not hypoxemia or febrile Subjective Cardiovascular: Denies: chest pain, lightheadedness, palpitations Respiratory: Denies: shortness of breath Gastrointestinal/Abdominal: Denies: abdominal pain Subjective pain on ambualtion post op Objective Last 24 Hour Vital Signs Date Time Temp Pulse Resp B/P (MAP) Pulse Ox O2 Delivery O2 Flow Rate FiO2 08/26/17 16:00 97.2 91 20 136/89 100 Room Air 08/26/17 11:57 98.4 93 20 115/71 100 Room Air 08/26/17 08:00 99.4 99 21 119/81 99 Room Air 08/26/17 04:00 99.4 89 18 111/65 98 08/26/17 00:01 Room Air 08/26/17 00:00 98.9 95 18 109/70 100 08/25/17 20:01 Room Air 08/25/17 20:00 97.6 65 18 134/86 99 General Appearance: no apparent distress, alert Neck: supple Cardiovascular: normal rate, regular rhythm Respiratory/Chest: lungs clear Abdomen: normal bowel sounds, non tender, soft Extremities: non-tender, no calf tenderness, no swelling Intake and Output 08/25/17 08/26/17 19:00 07:00 Intake Total 2125 ml 1930 ml Output Total 100 ml 2180 ml Balance 2025 ml -250 ml Intake Oral 1800 ml IV Total 2125 ml 130 ml Output Urine Total 2180 ml Estimated Blood Loss 100 ml Laboratory Tests Test 08/26/17 06:25 White Blood Count 9.7 K/UL (4.8-10.8) Red Blood Count 3.77 M/UL (4.70-6.10) L Hemoglobin 10.9 G/DL (14.2-18.0) L Hematocrit 33.9 % (42.0-52.0) L Mean Corpuscular Volume 90 FL (80-99) Mean Corpuscular Hemoglobin 28.8 PG (27.0-31.0) Mean Corpuscular Hemoglobin Concent 32.0 G/DL (32.0-36.0) Red Cell Distribution Width 14.9 % (11.6-14.8) H Platelet Count 316 K/UL (150-450) Mean Platelet Volume 5.9 FL (6.5-10.1) L Neutrophils (%) (Auto) 49.3 % (45.0-75.0) Lymphocytes (%) (Auto) 37.7 % (20.0-45.0) Monocytes (%) (Auto) 10.7 % (1.0-10.0) H Eosinophils (%) (Auto) 1.5 % (0.0-3.0) Basophils (%) (Auto) 0.8 % (0.0-2.0) ANGELIQUE OROZCO Aug 26, 2017 16:32
[2017-08-26 20:00] VITALS: BP 123/77
[2017-08-26] MEDS: Enoxaparin 40mg Inj SUBQ SCH (20:26)
[2017-08-27 04:00] VITALS: BP 135/91
[2017-08-27] MEDS: HYDROcodone/Acetamin 10/325 tab ORAL PRN (05:43)
[2017-08-27 08:00] VITALS: BP 133/85
[2017-08-27 08:16] LABS: BASOPHILS % (AUTO) 0.7 % (0.0-2.0); EOSINOPHILS % (AUTO) 1.1 % (0.0-3.0); HEMATOCRIT 33.8 % (42.0-52.0); HEMOGLOBIN 10.9 G/DL (14.2-18.0); LYMPHOCYTES % (AUTO) 26.1 % (20.0-45.0); MEAN CORPUSCULAR VOLUME 88 FL (80-99); MONOCYTES % (AUTO) 8.5 % (1.0-10.0); NEUTROPHILS % (AUTO) 63.6 % (45.0-75.0); PLATELET COUNT 277 K/UL (150-450); RED BLOOD COUNT 3.82 M/UL (4.70-6.10); RED CELL DISTRIBUTION WIDTH 14.5 % (11.6-14.8); WHITE BLOOD COUNT 9.8 K/UL (4.8-10.8)
[2017-08-27] MEDS ORDERED: HYDROcodone/Acetamin 10/325 tab ORAL PRN (10:30)
[2017-08-27 12:00] VITALS: BP 134/86
[2017-08-27] MEDS ORDERED: XARELTO10 MG ORAL ×2 (14:22→14:25)
[2017-08-27] MEDS ORDERED: Tubing IV Secondary IV ONE (15:57)
--- NOTE | 2017-08-28 15:31 | Discharge Summary ---
Discharge Summary Hospital Course Date of Admission Aug 25, 2017 at 10:38 Date of Discharge Aug 27, 2017 at 15:58 Admitting Diagnosis HPI Bebo Darden is a 52 year old male who was admitted on Aug 25, 2017 at 10:38 for Rt Quadricep Tear Hospital Course [id number] Discharge Discharge Disposition Patient was discharged to Home (01) Discharge Diagnoses: Michelle Nj NP Aug 28, 2017 15:31
--- NOTE | 2017-08-28 20:15 | Discharge Summary 2 SIG ---
DATE OF ADMISSION: 08/25/2017 DATE OF DISCHARGE: 08/27/2017 STOVE REFINISHER: Eitan Rosenberg M.D. BRIEF HOSPITAL COURSE: The patient is a 52-year-old male who has activity-induced quadriceps muscle injury, was admitted on 08/25/2017 and underwent repair of the quadriceps. Postoperatively, he was given pain management and underwent PT and OT. He was placed on SCDs and Lovenox for DVT prophylaxis and was given knee immobilizer. He was doing well with physical therapy. He was discharged home to follow up with Dr. Gonzalez as outpatient. FINAL DIAGNOSES: Status post right knee quadriceps repair. DISCHARGE MEDICATIONS: Continue with Xarelto 10 mg daily x7 days. DISCHARGE INSTRUCTIONS: Follow up in a week. Aurelio Gonzalez M.D. I have been assigned to dictate discharge summary on this account and I was not involved in the patient's management. Michelle Nj N.P. DR: WILLY JOB#: [id number] CC: JONA
--- NOTE | 2017-09-02 08:30 | Operative Note - Dictated ---
NOTE: POOR ADUIO PREOPERATIVE DIAGNOSIS: Right quadriceps rupture. POSTOPERATIVE DIAGNOSIS: Right quadriceps rupture. PROCEDURE: 1. Irrigation and debridement of the knee joint. 2. Right quadriceps repair with Graftjacket. SURGEON: Aurelio Gonzalez M.D. SHIFT MANAGER: Unknown. HEALTHCARE RECEPTIONIST: None. PREOPERATIVE NOTE: This is a pleasant gentleman, who is noncompliant and postoperatively has been gardening in doing so, he did not wear the brace, he slipped, fell, and tore his quads. I explained to him the surgery and the risks being infection, bleeding, anesthetic risks, neurovascular damage, DVT, PE, failure of the operation. The patient agreed and consents were obtained. OPERATIVE ROOM NOTE: Under the benefit of endotracheal intubation, general anesthetic, the patient's joint was prepped and draped in an appropriate manner. A midline incision was made and incised through subcutaneous tissue down to medial retinaculum. The quads was torn. I irrigated and debrided the whole hematoma. It was retracted. I then proceeded to close the area. minimal scar tissue within the joint. Given the to further increase range of motion at the same time. By doing so, I was able to repair the quads with 5-0 Ethibond heavy stitch. I used a Graftjacket to augment this repair scar along the quads tendon and mobilized the knee 0 to 90 degrees of closing the retinaculum with Ethibond, subcutaneous tissue with 2-0 Vicryl, and skin with yamileth. The patient went to recovery room in stable condition with no complications. Aurelio Gonzalez M.D. DR: KURT JOB#: [id number] CC:
== END 2017-08-27 15:58 | disposition home or self-care (01) | DRG 909 ==
LOC: SUR 05:41 → 3E 10:38
PROC: 0KQQ0ZZ Repair Right Upper Leg Muscle, Open Approach (ICD-10-PCS; principal; 2017-08-25 07:00)
PROC: 0KDQ0ZZ Extraction of Right Upper Leg Muscle, Open Approach (ICD-10-PCS; principal; 2017-08-25 07:00)
DX: S76.101A Unspecified injury of right quadriceps muscle, fascia and tendon, initial encounter (principal); E78.5 Hyperlipidemia, unspecified; F41.8 Other specified anxiety disorders; M19.90 Unspecified osteoarthritis, unspecified site; K21.9 Gastro-esophageal reflux disease without esophagitis; W01.0XXA Fall on same level from slipping, tripping and stumbling without subsequent striking against object, initial encounter; Y93.H2 Activity, gardening and landscaping; Y92.017 Garden or yard in single-family (private) house as the place of occurrence of the external cause; Y99.8 Other external cause status
CPT/HCPCS: 36415; 85025; 94003; 94150; J2250; J2405

== ENCOUNTER 2017-12-18 17:14 | Inpatient (IN) | payer BC ==
[~2017-12-18] VITALS: Ht 180.3 cm; Wt 81.7 kg
[~2017-12-18 17:14] MED LIST changes: +XARELTO10 MG ORAL
[2017-12-18 19:54] VITALS: BP 130/82
[2017-12-18] MEDS ORDERED: Zolpidem 5mg tab ORAL PRN (21:30)
[2017-12-18] MEDS: Cefepime HCl 2 GM in D5W 55 ML IVPB SCH (22:30)
[2017-12-19 00:03] VITALS: BP 121/62
[2017-12-19 01:12] LABS: BASOPHILS % (AUTO) 0.9 % (0.0-2.0); EOSINOPHILS % (AUTO) 1.8 % (0.0-3.0); HEMOGLOBIN 10.6 G/DL (14.2-18.0); LYMPHOCYTES % (AUTO) 31.1 % (20.0-45.0); MEAN CORPUSCULAR VOLUME 79 FL (80-99); MONOCYTES % (AUTO) 11.1 % (1.0-10.0); NEUTROPHILS % (AUTO) 55.1 % (45.0-75.0); PLATELET COUNT 308 K/UL (150-450); RED BLOOD COUNT 4.31 M/UL (4.70-6.10); WHITE BLOOD COUNT 8.7 K/UL (4.8-10.8)
[2017-12-19 01:34] LABS: ALANINE AMINOTRANSFERASE 18 U/L (12-78); ALBUMIN/GLOBULIN RATIO 0.8 (1.0-2.7); ALKALINE PHOSPHATASE 95 U/L (46-116); ANION GAP 11 mmol/L (5-15); ASPARTATE AMINO TRANSFERASE 15 U/L (15-37); BILIRUBIN,TOTAL 0.3 MG/DL (0.2-1.0); BLOOD UREA NITROGEN 19 mg/dL (7-18); CALCIUM 8.2 MG/DL (8.5-10.1); CARBON DIOXIDE 24 MMOL/L (21-32); CHLORIDE 107 MMOL/L (98-107); CREATININE 1.1 MG/DL (0.55-1.30); POTASSIUM 3.9 MMOL/L (3.5-5.1); SODIUM 142 MMOL/L (136-145)
[2017-12-19] MEDS: Heparin 5000 units/ml inj SUBQ SCH ×2 (08:02→20:12)
[2017-12-19] MEDS: Lactobacillus-GG tablet ORAL SCH ×2 (08:07→17:30)
[2017-12-19 08:27] VITALS: BP 120/80
[2017-12-19] MEDS: Vancomycin 1250mg/D5W 250ml IVPB SCH ×2 (10:16→21:04)
[2017-12-19 11:04] LABS: APPEARANCE,URINE CLEAR; BILIRUBIN, URINE NEGATIVE (NEGATIVE); COLOR,URINE PALE YELLOW; GLUCOSE, URINE (UA) NEGATIVE (NEGATIVE); KETONES,URINE NEGATIVE (NEGATIVE); LEUKOCYTE ESTERASE ,URINE NEGATIVE (NEGATIVE); NITRITE,URINE NEGATIVE (NEGATIVE); PH,URINE 7 (4.5-8.0); PROTEIN,URINE NEGATIVE (NEGATIVE); UROBILINOGEN,URINE NORMAL MG/DL (0.0-1.0)
[2017-12-19] MEDS: Cefepime HCl 2 GM in D5W 55 ML IVPB SCH ×2 (11:45→22:51)
[2017-12-19 11:51] VITALS: BP 133/78
[2017-12-19 15:57] VITALS: BP 124/78
--- NOTE | 2017-12-19 16:04 | Cardiology Progress Note ---
Subjective Subjective [id number] abx ambualte every 2 hour heparin if unalbe to ambualte id consutl sed rate crp Objective Last 24 Hour Vital Signs Date Time Temp Pulse Resp B/P (MAP) Pulse Ox O2 Delivery O2 Flow Rate FiO2 12/19/17 15:57 97.5 85 20 124/78 98 97.5 12/19/17 11:51 98.2 76 20 133/78 99 98.2 12/19/17 08:32 97.2 12/19/17 08:27 97.2 89 20 120/80 98 97.2 12/19/17 07:33 97.5 12/19/17 00:03 97.5 100 20 121/62 97 Room Air 97.5 12/18/17 19:54 97.2 90 20 130/82 97 Room Air 97.2 Intake and Output 12/18/17 12/19/17 19:00 07:00 # Voids 2 Laboratory Tests Test 12/19/17 00:30 12/19/17 10:45 White Blood Count 8.7 K/UL (4.8-10.8) Red Blood Count 4.31 M/UL (4.70-6.10) L Hemoglobin 10.6 G/DL (14.2-18.0) L Hematocrit 34.0 % (42.0-52.0) L Mean Corpuscular Volume 79 FL (80-99) L Mean Corpuscular Hemoglobin 24.6 PG (27.0-31.0) L Mean Corpuscular Hemoglobin Concent 31.2 G/DL (32.0-36.0) L Red Cell Distribution Width 16.0 % (11.6-14.8) H Platelet Count 308 K/UL (150-450) Mean Platelet Volume 5.7 FL (6.5-10.1) L Neutrophils (%) (Auto) 55.1 % (45.0-75.0) Lymphocytes (%) (Auto) 31.1 % (20.0-45.0) Monocytes (%) (Auto) 11.1 % (1.0-10.0) H Eosinophils (%) (Auto) 1.8 % (0.0-3.0) Basophils (%) (Auto) 0.9 % (0.0-2.0) Sodium Level 142 MMOL/L (136-145) Potassium Level 3.9 MMOL/L (3.5-5.1) Chloride Level 107 MMOL/L (98-107) Carbon Dioxide Level 24 MMOL/L (21-32) Anion Gap 11 mmol/L (5-15) Blood Urea Nitrogen 19 mg/dL (7-18) H Creatinine 1.1 MG/DL (0.55-1.30) Estimat Glomerular Filtration Rate > 60 mL/min (>60) Glucose Level 150 MG/DL (74-106) H Calcium Level 8.2 MG/DL (8.5-10.1) L Total Bilirubin 0.3 MG/DL (0.2-1.0) Aspartate Amino Transf (AST/SGOT) 15 U/L (15-37) Alanine Aminotransferase (ALT/SGPT) 18 U/L (12-78) Alkaline Phosphatase 95 U/L (46-116) Total Protein 6.6 G/DL (6.4-8.2) Albumin 3.0 G/DL (3.4-5.0) L Globulin 3.6 g/dL Albumin/Globulin Ratio 0.8 (1.0-2.7) L Urine Color Pale yellow Urine Appearance Clear Urine pH 7 (4.5-8.0) Urine Specific [place] 1.010 (1.005-1.035) Urine Protein Negative (NEGATIVE) Urine Glucose (UA) Negative (NEGATIVE) Urine Ketones Negative (NEGATIVE) Urine Occult Blood Negative (NEGATIVE) Urine Nitrite Negative (NEGATIVE) Urine Bilirubin Negative (NEGATIVE) Urine Urobilinogen Normal MG/DL (0.0-1.0) Urine Leukocyte Esterase Negative (NEGATIVE) Urine RBC 0 /HPF (0 - 0) Urine WBC 0-2 /HPF (0 - 0) Urine Squamous Epithelial Cells Occasional /LPF Urine Bacteria Occasional /HPF (NONE) Eitan Rosenberg MD December 19, 2017 16:04
--- NOTE | 2017-12-19 17:21 | Infectious Diseases Prog Note ---
Assessment/Plan Assessment/Plan Full consult dictated: A) 1) right knee/leg cellulitis, ? abscess, hx recent abx including keflex and bactrim 2) pmh o/w negative 3) allergies negative P) 1) vancomycin and cefepime 2) check US right leg to r/o abscess 3) check labs, sr, crp 4) thanks Subjective Genitourinary: Reports: hematuria Allergies: Coded Allergies: No Known Allergies (Unverified , 08/25/17) Objective Vital Signs Last 24 Hour Vital Signs Date Time Temp Pulse Resp B/P (MAP) Pulse Ox O2 Delivery O2 Flow Rate FiO2 12/19/17 15:57 97.5 85 20 124/78 98 97.5 12/19/17 11:51 98.2 76 20 133/78 99 98.2 12/19/17 08:32 97.2 12/19/17 08:27 97.2 89 20 120/80 98 97.2 12/19/17 07:33 97.5 12/19/17 00:03 97.5 100 20 121/62 97 Room Air 97.5 12/18/17 19:54 97.2 90 20 130/82 97 Room Air 97.2 Height (Feet): 5 Height (Inches): 11.00 Weight (Pounds): 180 Laboratory Tests Test 12/19/17 00:30 12/19/17 10:45 White Blood Count 8.7 K/UL (4.8-10.8) Red Blood Count 4.31 M/UL (4.70-6.10) L Hemoglobin 10.6 G/DL (14.2-18.0) L Hematocrit 34.0 % (42.0-52.0) L Mean Corpuscular Volume 79 FL (80-99) L Mean Corpuscular Hemoglobin 24.6 PG (27.0-31.0) L Mean Corpuscular Hemoglobin Concent 31.2 G/DL (32.0-36.0) L Red Cell Distribution Width 16.0 % (11.6-14.8) H Platelet Count 308 K/UL (150-450) Mean Platelet Volume 5.7 FL (6.5-10.1) L Neutrophils (%) (Auto) 55.1 % (45.0-75.0) Lymphocytes (%) (Auto) 31.1 % (20.0-45.0) Monocytes (%) (Auto) 11.1 % (1.0-10.0) H Eosinophils (%) (Auto) 1.8 % (0.0-3.0) Basophils (%) (Auto) 0.9 % (0.0-2.0) Sodium Level 142 MMOL/L (136-145) Potassium Level 3.9 MMOL/L (3.5-5.1) Chloride Level 107 MMOL/L (98-107) Carbon Dioxide Level 24 MMOL/L (21-32) Anion Gap 11 mmol/L (5-15) Blood Urea Nitrogen 19 mg/dL (7-18) H Creatinine 1.1 MG/DL (0.55-1.30) Estimat Glomerular Filtration Rate > 60 mL/min (>60) Glucose Level 150 MG/DL (74-106) H Calcium Level 8.2 MG/DL (8.5-10.1) L Total Bilirubin 0.3 MG/DL (0.2-1.0) Aspartate Amino Transf (AST/SGOT) 15 U/L (15-37) Alanine Aminotransferase (ALT/SGPT) 18 U/L (12-78) Alkaline Phosphatase 95 U/L (46-116) Total Protein 6.6 G/DL (6.4-8.2) Albumin 3.0 G/DL (3.4-5.0) L Globulin 3.6 g/dL Albumin/Globulin Ratio 0.8 (1.0-2.7) L Urine Color Pale yellow Urine Appearance Clear Urine pH 7 (4.5-8.0) Urine Specific [place] 1.010 (1.005-1.035) Urine Protein Negative (NEGATIVE) Urine Glucose (UA) Negative (NEGATIVE) Urine Ketones Negative (NEGATIVE) Urine Occult Blood Negative (NEGATIVE) Urine Nitrite Negative (NEGATIVE) Urine Bilirubin Negative (NEGATIVE) Urine Urobilinogen Normal MG/DL (0.0-1.0) Urine Leukocyte Esterase Negative (NEGATIVE) Urine RBC 0 /HPF (0 - 0) Urine WBC 0-2 /HPF (0 - 0) Urine Squamous Epithelial Cells Occasional /LPF Urine Bacteria Occasional /HPF (NONE) Current Medications Medications (Trade) Dose Ordered Sig/Kwame Route PRN Reason Start Time Stop Time Status Last Admin Dose Admin Acetaminophen (Tylenol) 650 mg Q6H PRN ORAL Mild Pain/Temp > 100.5 12/18/17 21:29 01/17/18 21:28 Cefepime HCl 2 gm/ Dextrose 55 ml @ 110 mls/hr Q12H IVPB 12/18/17 22:30 12/25/17 22:29 12/19/17 11:45 Heparin Sodium (Porcine) (Heparin 5000 units/ml) 5,000 units EVERY 12 HOURS SUBQ 12/19/17 09:00 01/18/18 08:59 Lactobacillus Acidophilus (Culturelle) 1 tab TWICE A DAY ORAL 12/19/17 09:00 01/18/18 08:59 12/19/17 08:07 Ondansetron HCl (Zofran) 4 mg EVERY 8 HOURS PRN IVP Nausea & Vomiting 12/18/17 21:30 01/17/18 21:29 Oxycodone/ Acetaminophen (Percocet 10/325) 1 tab EVERY 6 HOURS PRN ORAL Moderate Pain (Pain Scale 4-6) 12/18/17 21:30 12/25/17 21:29 12/19/17 07:33 Vancomycin HCl (Vanco rx to dose) 1 ea DAILY PRN MISC Per rx protocol 12/19/17 07:45 01/18/18 07:44 Vancomycin HCl/ Dextrose 250 ml @ 166.667 mls/hr Q12HR IVPB 12/19/17 09:00 12/24/17 08:59 12/19/17 10:16 Zolpidem Tartrate (Ambien) 5 mg HSPRN PRN ORAL Insomnia 12/18/17 21:30 12/25/17 21:29 CALIN GRULLON December 19, 2017 17:21
--- NOTE | 2017-12-19 20:06 | Diagnostic Imaging Report ---
EXAM: US Right Lower Extremity Non-Vascular, Limited CLINICAL HISTORY: ABSCESS TECHNIQUE: Real-time ultrasound scan of the right lower extremity with image documentation. COMPARISON: No relevant prior studies available. FINDINGS: Soft tissues: Complex nonvascular fluid collection noted within the soft tissues about the right knee measuring 3.0 x 3.3 cm. No foreign body. IMPRESSION: Complex nonvascular fluid collection noted within the soft tissues about the right knee measuring 3.0 x 3.3 cm. Findings represent old hematoma versus abscess.
[2017-12-19 21:00] VITALS: BP 120/86
--- NOTE | 2017-12-20 00:46 | History and Physical Report ---
DATE OF CONSULTATION: 12/19/2017 CARDIOLOGY EVALUATION REFERRING PHYSICIAN: Aurelio Gonzalez M.D. REASON FOR REFERRAL: Cellulitis. HISTORY OF PRESENT ILLNESS: This is a 52-year-old gentleman, who is known to me from prior hospitalization evaluation. The patient has had a history of knee surgery and revision on prior occasions by Dr. Adler, the last one being I believe in August 2017. Nevertheless, he has been doing well. He is getting some physical therapy. He had manipulation of his skin to help remove the scar and two days after this manipulation, the patient developed redness in the area and swelling within the past two weeks. Apparently, he has been tried some antibiotics orally at home and eventually Dr. Adler felt that needs to be treated with intravenous antibiotics and the patient was admitted to the hospital for that particular purpose. He really does not have any chest pain or pressure. No PND, orthopnea, or palpitations. There is no chills or fevers. There is redness. He is limited in his mobility mainly with bending of his right knee. He is able to walk around with the help of a walker and he does not have any diarrhea or constipation. PAST MEDICAL HISTORY: Positive for history of arthritis, hyperlipidemia, and prior knee issues and surgeries. ALLERGIES: He has no known drug allergies. SOCIAL HISTORY: Rarely drinks alcoholic beverages. He states he is a nonsmoker. REVIEW OF SYSTEMS: GASTROINTESTINAL: There is no diarrhea. No nausea or vomiting. Does not know about the stool color. He never looked. GENITOURINARY: He denies. PULMONARY: He denies. CONSTITUTIONAL: Negative. NEUROLOGIC: Negative. PHYSICAL EXAMINATION: GENERAL: Shows to be middle-aged gentleman, in no respiratory distress. NECK: Supple. No jugular venous distention. No abdominojugular reflux noted. LUNGS: Clear to auscultation and percussion. CARDIAC: S1 is normal. S2 is normal. Regular rate and rhythm. No heaves, thrills, or gallops noted. ABDOMEN: Soft and nontender. Positive bowel sounds. EXTREMITIES: There is no edema of the lower extremities. Does have a surgical scar in his knee on the right side anteriorly. Just below the knee, there is some area of redness irregular . No red streaks are noted. NEUROLOGICAL: He is awake, alert, responsive, in no respiratory distress. LABORATORY AND DIAGNOSTIC DATA: White count of 8.7, hemoglobin 10.6, and platelet count of 308,000 on direct comparison with previous levels. His white counts actually look better than was 9.8. Sodium was 142, potassium 3.9, chloride 107, bicarbonate 24, BUN 19, creatinine 1.1, glucose of 150, and calcium is 8.2. Albumin of 3.0. Urinalysis is fairly unremarkable. He has not had knee x-rays here. This admission, his blood cultures were ordered, none reported yet. ASSESSMENT AND PLAN: 1. Cellulitis, right knee. 2. History of knee surgery. This patient was seen in Internal Medicine Cardiology consultation. The patient administered intravenous antibiotics with cefepime and vancomycin. Infectious Diseases consultation is requested. White count does not appear to be significantly elevated. The sedimentation rate and CRP will be ordered to the blood that was drawn this morning. Blood cultures are pending at this time. Continuation of antibiotics for cellulitis. Dr. Adler will decide whether any surgical procedures may be necessary to treat this infection. Eitan Rosenberg M.D. DR: Luciana JOB#: [id number] CC: JONA
--- NOTE | 2017-12-20 02:46 | Consultation ---
DATE OF CONSULTATION: 12/19/2017 INFECTIOUS DISEASE CONSULTATION CONSULTING PHYSICIAN: Rosalina López M.D. ATTENDING PHYSICIAN: Aurelio Gonzalez M.D. REFERRING PHYSICIAN: Eitan Rosenberg M.D. REASON FOR CONSULTATION: Right knee cellulitis, rule out abscess. CHIEF COMPLAINT: The patient's chief complaint coming in to the hospital is right knee pain and cellulitis. HISTORY OF PRESENT ILLNESS: This is a very pleasant 52-year-old male, who has a history of multiple right knee surgeries including what sounds like a prosthesis of the right knee in 2017. The patient has a history of what sounds like fall and trauma to the right knee requiring the past surgeries of the right knee. The patient has been on Keflex and Bactrim for some time, it sounds like weeks to maybe a month for possible right knee infection, possible cellulitis. The patient recently went to someone to help with the right knee flexibility and I guess they manipulated the right knee to help loosen the knee stiffness and improve range of motion and subsequently, the patient had worsening swelling of the right knee and leg and worsening redness. The patient presents to [facility] with cellulitis of the right knee, but also possible fluid collection right below the right knee and on the right leg also. Infectious Disease consultation has been requested for antibiotic management. The patient was placed on vancomycin and cefepime, broad-spectrum antibiotics because it sounds like he has been on Keflex and Bactrim for sometime and must assume resistance. Case was discussed with Dr. Rosenberg and the patient. Notes and records were noted. PAST MEDICAL HISTORY: The patient has a history of right knee surgery and including what sounds like a prosthesis last year, but he has had multiple surgeries. The patient denies any history of diabetes or hypertension. The patient has history of also quadriceps muscle rupture and as discussed right knee arthropathy. He does have history also chronic pain in the right knee. No history of diabetes or hypertension. No history of hyperlipidemia or cancer mentioned. MEDICATIONS: The patient is currently on heparin. Upon reviewing the MAR, he is on heparin, lactobacillus, vancomycin, cefepime, zolpidem, Zofran, oxycodone, and acetaminophen. Medication reconciliation, the patient is on Xarelto. ALLERGIES: No known drug allergies. SOCIAL HISTORY: Negative for smoking, alcohol, or drug abuse. FAMILY HISTORY: Noncontributory. REVIEW OF SYSTEMS: CONSTITUTIONAL: The patient's main issue is right knee pain and swelling and decreased range of motion. HEAD AND NECK: No mention of thrush or dysphagia. CARDIAC: No mention of chest pain. GASTROINTESTINAL: No nausea, vomiting, or diarrhea. GENITOURINARY: No mention of dysuria or frequency. PULMONARY: No congestion or shortness of breath. SKIN: No other rash. PHYSICAL EXAMINATION: VITAL SIGNS: Temperature is 97.5, pulse rate is 85, respirations 20, blood pressure 124/70, and saturating 98%. GENERAL: Alert and responsive, in no acute distress. Oriented x3. HEAD AND NECK: Oral exam, no thrush. Eye exam, no icterus. Normocephalic. NECK: No neck stiffness. HEART: Regular. No gallops or murmur. LUNGS: Clear bilaterally. No rhonchi or rales. ABDOMEN: Soft. Positive bowel sounds. Nontender. SKIN: No rash. MUSCULOSKELETAL: Right knee has fairly limited range of motion, but does not seem to be a septic right knee. EXTREMITIES: The right knee has warmth and redness and also below the knee. He has swelling. There is no open wound that saw on the right knee. PERIPHERAL VASCULAR: No evidence of gangrene. Left leg without cellulitis. NEUROLOGIC: He is alert and oriented x3. Intact. No focal weakness. LINES: Line sites without phlebitis. GENITOURINARY: No Mckay. LABORATORY AND DIAGNOSTIC DATA: Laboratory data is as follows. White count 8.7, hemoglobin 7.6, and creatinine was 1.1. UA is negative. X-ray of the right knee shows right prosthesis in place. No unusual features. I am going to order ultrasound of the right knee and leg. Blood cultures also have been ordered, I believe is also pending. ASSESSMENT AND PLAN: 1. The patient has right knee/leg cellulitis, rule out abscess. There is area that is unclear if there is fluid collection. Continue vancomycin and cefepime. The patient was on oral Bactrim and Keflex for sometime, must assume resistance to these antibiotics, and most likely organisms such as Staph aureus including methicillin-resistant Staphylococcus aureus and Streptococcus group A strep or Streptococcus pyogenes, however, because of the failure to oral antibiotics Bactrim and Keflex, I would also consider gram negative organisms but less likely. Continue vancomycin and cefepime. Check ultrasound and check blood cultures. Check followup labs. Watch creatinine closely. Check sedimentation rate and CRP. Also consider further imaging, but I will defer this to orthopedic surgery and we will discuss with primary. For now, continue vancomycin and cefepime. The patient may need long-term intravenous antibiotics depending on workup and clinical response or transition to oral abx if appropriate. 2. History of right knee prosthesis and history of multiple surgeries to the right knee. 3. Chronic right knee pain. 4. Decreased range of motion. 5. No history of diabetes and hypertension. 6. No known allergies. 7. Social history is negative. 8. Family history is noncontributory. 9. MAR was noted. 10. Case was discussed with RN. 11. Case was discussed with Dr. Rosenberg. 12. Case was discussed with the patient. 13. Notes and records were noted. 14. Orders were entered. Rosalina López M.D. DR: ARI JOB#: [id number] CC: JONA
[2017-12-20 04:17] VITALS: BP 115/78
[2017-12-20 07:21] LABS: BASOPHILS % (AUTO) 0.7 % (0.0-2.0); HEMATOCRIT 36.5 % (42.0-52.0); HEMOGLOBIN 11.7 G/DL (14.2-18.0); LYMPHOCYTES % (AUTO) 27.3 % (20.0-45.0); MEAN CORPUSCULAR VOLUME 77 FL (80-99); MONOCYTES % (AUTO) 10.6 % (1.0-10.0); NEUTROPHILS % (AUTO) 59.3 % (45.0-75.0); PLATELET COUNT 334 K/UL (150-450); RED BLOOD COUNT 4.72 M/UL (4.70-6.10); RED CELL DISTRIBUTION WIDTH 15.9 % (11.6-14.8)
[2017-12-20 07:41] LABS: ANION GAP 9 mmol/L (5-15); BLOOD UREA NITROGEN 17 mg/dL (7-18); CALCIUM 9.2 MG/DL (8.5-10.1); CARBON DIOXIDE 28 MMOL/L (21-32); CHLORIDE 103 MMOL/L (98-107); CREATININE 1.2 MG/DL (0.55-1.30); POTASSIUM 4.1 MMOL/L (3.5-5.1); SODIUM 140 MMOL/L (136-145)
[2017-12-20 08:43] VITALS: BP 123/65
[2017-12-20] MEDS: Heparin 5000 units/ml inj SUBQ SCH ×2 (09:00→20:23)
[2017-12-20] MEDS: Lactobacillus-GG tablet ORAL SCH ×2 (09:00→17:14)
[2017-12-20] MEDS: Vancomycin 1250mg/D5W 250ml IVPB SCH ×2 (09:27→21:33)
--- NOTE | 2017-12-20 11:06 | Infectious Diseases Prog Note ---
Assessment/Plan Assessment/Plan A) 1) right knee/leg cellulitis, ? abscess vs hematoma on US right leg , ? deeper infection, hx recent abx including keflex and bactrim 2) pmh o/w negative 3) allergies negative 4) sh - negative, fh-nc, allergies - negative, mar noted, notes and records reviewed 5) d/w RN P) 1) vancomycin and cefepime 2) ortho f/u, ? aspiration of right knee, ? mri, per pt outside wbc scan done 3) check labs, bc negative 4) d/w pt Subjective Constitutional: Denies: fever HEENT: Denies: congestion Respiratory: Denies: shortness of breath Cardiovascular: Denies: chest pain Gastrointestinal/Abdominal: Denies: nausea, vomiting Allergies: Coded Allergies: No Known Allergies (Unverified , 08/25/17) Objective Vital Signs Last 24 Hour Vital Signs Date Time Temp Pulse Resp B/P (MAP) Pulse Ox O2 Delivery O2 Flow Rate FiO2 12/20/17 08:43 97.9 95 18 123/65 98 97.9 12/20/17 04:17 99.0 20 115/78 96 99.0 12/19/17 21:00 99.3 88 19 120/86 99 99.3 12/19/17 19:51 97.5 12/19/17 18:52 97.5 12/19/17 15:57 97.5 85 20 124/78 98 97.5 12/19/17 11:51 98.2 76 20 133/78 99 98.2 Height (Feet): 5 Height (Inches): 11.00 Weight (Pounds): 180 General Appearance: no acute distress HEENT: normocephalic, atraumatic, anicteric Respiratory/Chest: normal breath sounds Extremities: other - right leg redness and swelling the same Skin: no rash Neurologic/Psychiatric: 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 grossly normal, no motor/sensory deficits, abnormal gait, alert Microbiology Date/Time Source Procedure Growth Status 12/19/17 00:45 Blood Blood Culture - Preliminary NO GROWTH AFTER 24 HOURS Resulted 12/19/17 00:30 Blood Blood Culture - Preliminary NO GROWTH AFTER 24 HOURS Resulted 12/19/17 10:45 Urine,Clean Catch Urine Culture - Preliminary NO GROWTH Resulted Laboratory Tests Test 12/19/17 17:30 12/20/17 05:40 Erythrocyte Sedimentation Rate 27 MM/HR (0-20) H C-Reactive Protein, Quantitative 3.0 mg/dL (0.00-0.90) H White Blood Count 9.0 K/UL (4.8-10.8) Red Blood Count 4.72 M/UL (4.70-6.10) Hemoglobin 11.7 G/DL (14.2-18.0) L Hematocrit 36.5 % (42.0-52.0) L Mean Corpuscular Volume 77 FL (80-99) L Mean Corpuscular Hemoglobin 24.9 PG (27.0-31.0) L Mean Corpuscular Hemoglobin Concent 32.2 G/DL (32.0-36.0) Red Cell Distribution Width 15.9 % (11.6-14.8) H Platelet Count 334 K/UL (150-450) Mean Platelet Volume 6.0 FL (6.5-10.1) L Neutrophils (%) (Auto) 59.3 % (45.0-75.0) Lymphocytes (%) (Auto) 27.3 % (20.0-45.0) Monocytes (%) (Auto) 10.6 % (1.0-10.0) H Eosinophils (%) (Auto) 2.0 % (0.0-3.0) Basophils (%) (Auto) 0.7 % (0.0-2.0) Sodium Level 140 MMOL/L (136-145) Potassium Level 4.1 MMOL/L (3.5-5.1) Chloride Level 103 MMOL/L (98-107) Carbon Dioxide Level 28 MMOL/L (21-32) Anion Gap 9 mmol/L (5-15) Blood Urea Nitrogen 17 mg/dL (7-18) Creatinine 1.2 MG/DL (0.55-1.30) Estimat Glomerular Filtration Rate > 60 mL/min (>60) Glucose Level 106 MG/DL (74-106) Calcium Level 9.2 MG/DL (8.5-10.1) Current Medications Medications (Trade) Dose Ordered Sig/Kwame Route PRN Reason Start Time Stop Time Status Last Admin Dose Admin Acetaminophen (Tylenol) 650 mg Q6H PRN ORAL Mild Pain/Temp > 100.5 12/18/17 21:29 01/17/18 21:28 Cefepime HCl 2 gm/ Dextrose 55 ml @ 110 mls/hr Q12H IVPB 12/18/17 22:30 12/25/17 22:29 12/19/17 22:51 Heparin Sodium (Porcine) (Heparin 5000 units/ml) 5,000 units EVERY 12 HOURS SUBQ 12/19/17 09:00 01/18/18 08:59 Lactobacillus Acidophilus (Culturelle) 1 tab TWICE A DAY ORAL 12/19/17 09:00 01/18/18 08:59 12/19/17 17:30 Ondansetron HCl (Zofran) 4 mg EVERY 8 HOURS PRN IVP Nausea & Vomiting 12/18/17 21:30 01/17/18 21:29 Oxycodone/ Acetaminophen (Percocet 10) 1 tab EVERY 6 HOURS PRN ORAL Moderate Pain (Pain Scale 4-6) 12/18/17 21:30 12/25/17 21:29 12/19/17 18:52 Vancomycin HCl (Vanco rx to dose) 1 ea DAILY PRN MISC Per rx protocol 12/19/17 07:45 01/18/18 07:44 Vancomycin HCl/ Dextrose 250 ml @ 166.667 mls/hr Q12HR IVPB 12/19/17 09:00 12/24/17 08:59 12/20/17 09:27 Zolpidem Tartrate (Ambien) 5 mg HSPRN PRN ORAL Insomnia 12/18/17 21:30 12/25/17 21:29 CALIN GRULLON December 20, 2017 11:06
[2017-12-20] MEDS ORDERED: Lactobacillus-GG tablet ORAL SCH (11:30)
[2017-12-20] MEDS: Cefepime HCl 2 GM in D5W 55 ML IVPB SCH ×2 (11:43→23:58)
[2017-12-20 12:00] VITALS: BP 120/77
--- NOTE | 2017-12-20 15:14 | Cardiology Progress Note ---
Assessment/Plan Assessment/Plan cellulitis bellow th knee s/p knee surgey fludi collection bellow the kneed d/w id adn ortho plans for possible aspiration on friday iv abx ambualte if possible will do u/s of leg to excldued dvt to allow pneumatic compression stocking Subjective Cardiovascular: Denies: chest pain, lightheadedness, palpitations Respiratory: Denies: shortness of breath Gastrointestinal/Abdominal: Denies: abdominal pain Genitourinary: Denies: burning Subjective Objective Last 24 Hour Vital Signs Date Time Temp Pulse Resp B/P (MAP) Pulse Ox O2 Delivery O2 Flow Rate FiO2 12/20/17 12:00 98.4 85 18 120/77 100 Endotracheal Tube 98.4 12/20/17 08:43 97.9 95 18 123/65 98 97.9 12/20/17 04:17 99.0 20 115/78 96 99.0 12/19/17 21:00 99.3 88 19 120/86 99 99.3 12/19/17 19:51 97.5 12/19/17 18:52 97.5 12/19/17 15:57 97.5 85 20 124/78 98 97.5 General Appearance: no apparent distress, alert Neck: supple Cardiovascular: normal rate, regular rhythm Respiratory/Chest: lungs clear Abdomen: normal bowel sounds, non tender, soft Extremities: other - an are of selling bellwo the knee seems more prominent than yest Intake and Output 12/19/17 12/20/17 19:00 07:00 Intake Total 1773.334 ml Balance 1773.334 ml Intake Oral 1330 ml IV Total 443.334 ml # Voids 3 1 Laboratory Tests Test 12/19/17 17:30 12/20/17 05:40 Erythrocyte Sedimentation Rate 27 MM/HR (0-20) H C-Reactive Protein, Quantitative 3.0 mg/dL (0.00-0.90) H White Blood Count 9.0 K/UL (4.8-10.8) Red Blood Count 4.72 M/UL (4.70-6.10) Hemoglobin 11.7 G/DL (14.2-18.0) L Hematocrit 36.5 % (42.0-52.0) L Mean Corpuscular Volume 77 FL (80-99) L Mean Corpuscular Hemoglobin 24.9 PG (27.0-31.0) L Mean Corpuscular Hemoglobin Concent 32.2 G/DL (32.0-36.0) Red Cell Distribution Width 15.9 % (11.6-14.8) H Platelet Count 334 K/UL (150-450) Mean Platelet Volume 6.0 FL (6.5-10.1) L Neutrophils (%) (Auto) 59.3 % (45.0-75.0) Lymphocytes (%) (Auto) 27.3 % (20.0-45.0) Monocytes (%) (Auto) 10.6 % (1.0-10.0) H Eosinophils (%) (Auto) 2.0 % (0.0-3.0) Basophils (%) (Auto) 0.7 % (0.0-2.0) Sodium Level 140 MMOL/L (136-145) Potassium Level 4.1 MMOL/L (3.5-5.1) Chloride Level 103 MMOL/L (98-107) Carbon Dioxide Level 28 MMOL/L (21-32) Anion Gap 9 mmol/L (5-15) Blood Urea Nitrogen 17 mg/dL (7-18) Creatinine 1.2 MG/DL (0.55-1.30) Estimat Glomerular Filtration Rate > 60 mL/min (>60) Glucose Level 106 MG/DL (74-106) Calcium Level 9.2 MG/DL (8.5-10.1) Microbiology Date/Time Source Procedure Growth Status 12/19/17 00:45 Blood Blood Culture - Preliminary NO GROWTH AFTER 24 HOURS Resulted 12/19/17 00:30 Blood Blood Culture - Preliminary NO GROWTH AFTER 24 HOURS Resulted 12/19/17 10:45 Urine,Clean Catch Urine Culture - Preliminary NO GROWTH Resulted Eitan Rosenberg MD December 20, 2017 15:14
[2017-12-20 16:00] VITALS: BP 101/64
[2017-12-20 20:01] VITALS: BP 118/86
[2017-12-20] MEDS ORDERED: Zolpidem 5mg tab ORAL PRN (21:00)
[2017-12-21] VITALS (12 sets, daily range): BP systolic 95–129; BP diastolic 57–84
[2017-12-21] MEDS ORDERED: HYDROcodone/Acetamin 10/325 tab ORAL PRN (08:00)
[2017-12-21] MEDS ORDERED: Chloraseptic Spray 20mL Bottle ORAL PRN (08:00)
[2017-12-21] MEDS ORDERED: Magnesium Citrate Liq Btl ORAL PRN (08:00)
[2017-12-21] MEDS ORDERED: Milk of Magnesia 30ml Ud ORAL PRN (08:00)
[2017-12-21] MEDS ORDERED: Sterile Water Irrig 1000ml IRRIG ONE (09:00)
[2017-12-21] MEDS ORDERED: Ketorolac 60mg Inj ONE (09:00)
[2017-12-21] MEDS: Lactobacillus-GG tablet ORAL SCH ×2 (09:00→18:00)
[2017-12-21] MEDS: Heparin 5000 units/ml inj SUBQ SCH (09:00)
[2017-12-21] MEDS ORDERED: Dexamethasone 4mg/ml vial ONE (09:00)
[2017-12-21] MEDS ORDERED: LR 1000ml ONE (09:00)
[2017-12-21] MEDS: Sennosides 8.6mg ORAL SCH ×2 (09:00→18:00)
[2017-12-21] MEDS: Docusate 100mg/10ml Liq NG SCH ×2 (09:00→18:00)
[2017-12-21] MEDS ORDERED: NS Irrig 4000ml IRRIG ONE ×2 (09:00→15:10)
[2017-12-21] MEDS: Vancomycin 1250mg/D5W 250ml IVPB SCH ×2 (09:50→21:28)
[2017-12-21] MEDS: Cefepime HCl 2 GM in D5W 55 ML IVPB SCH (10:30)
[2017-12-21] MEDS ORDERED: NS 275ml ONE (10:48)
[2017-12-21] MEDS: LR 1000ml 1,000 ML IV SCH ×2 (11:35→18:00)
--- NOTE | 2017-12-21 11:47 | Cardiology Progress Note ---
Assessment/Plan Assessment/Plan cellulitis bellow th knee s/p knee surgey fludi collection bellow the kneed was seen by antonio balbuena plan for or today iv abx ambualte will be going to or today Subjective Cardiovascular: Denies: chest pain, irregular heart rate, lightheadedness Respiratory: Denies: shortness of breath Gastrointestinal/Abdominal: Denies: abdominal pain Genitourinary: Denies: burning Subjective walked once today Objective Last 24 Hour Vital Signs Date Time Temp Pulse Resp B/P (MAP) Pulse Ox O2 Delivery O2 Flow Rate FiO2 12/21/17 11:00 98.1 12/21/17 10:30 98.1 12/21/17 08:00 98.1 85 21 107/71 100 98.1 12/21/17 04:42 Room Air 12/21/17 04:36 97.5 78 16 129/77 98 97.5 12/21/17 00:39 Room Air 12/21/17 00:00 98.2 76 17 121/84 100 98.2 12/20/17 23:20 98.4 12/20/17 22:21 98.4 12/20/17 20:01 98.4 95 17 118/86 100 98.4 12/20/17 20:00 Room Air 12/20/17 16:00 99.1 87 18 101/64 97 99.1 12/20/17 12:00 98.4 85 18 120/77 100 98.4 General Appearance: no apparent distress, alert Neck: supple Cardiovascular: normal rate, regular rhythm Respiratory/Chest: lungs clear Abdomen: normal bowel sounds, non tender, soft Extremities: no swelling Intake and Output 12/20/17 12/21/17 19:00 07:00 Intake Total 925.00 ml 305.000 ml Output Total 3 ml Balance 922.00 ml 305.000 ml Intake Oral 620 ml IV Total 305.00 ml 305.000 ml Output Urine Total 3 ml # Voids 3 1 Laboratory Tests Test 12/20/17 19:45 Vancomycin Level Trough 11.5 ug/mL (5.0-12.0) Microbiology Date/Time Source Procedure Growth Status 12/19/17 00:45 Blood Blood Culture - Preliminary NO GROWTH AFTER 48 HOURS Resulted 12/19/17 00:30 Blood Blood Culture - Preliminary NO GROWTH AFTER 48 HOURS Resulted 12/19/17 10:45 Urine,Clean Catch Urine Culture - Final NO GROWTH AFTER 48 HOURS Complete Eitna Rosenberg MD December 21, 2017 11:47
--- NOTE | 2017-12-21 13:25 | General Progress Note ---
Progress Note Progress Note REVIEDED PATIENT FridayDECEMBER 18 AT 10 PM CELLULITIS DISTAL KNEE ULTRASOUND SHOWS SXELLING NEW ONSET ON EXAMINATION TENDER TO TOUCH ESR 24 AFEBRILE PATIENT WAS HAVING RANGE MOTION ISSUE DUE TO SCAR TISSUE PRIOR DUE TO PROXIMITY AND [id number] ANR PRIOR REVISION EXPLAINED TO PATIENT OPTION IS TO DO ACUTE IRRIGATION AND DEBRIDEMENT WITH PULSE LAVAGE WITH ASSUPTION THAT CELLULIS MAY HAVE IRRIATED KNEE PATIENT AGREED AND COINSENTED INFECTION BELLEDING ANESTHESTIC RISK DVT PE FAILURE OF SURGERY EXPLAINED TO PATIENT THAT IF THIS FAILS AND IS PERSISTANT AND NEEDS REVISION MUST SEE REVSION SPECIALIST DR FAREED REDDY PATIENT AGREED AND CONSENTED Aurelio Gonzalez MD December 21, 2017 13:25
--- NOTE | 2017-12-21 13:26 | Pre-Procedure Note/Attestation ---
Pre-Procedure Note/Attestation Complete Prior to Procedure Planned Procedure: right Procedure Narrative: RIGH TKNEE IRRIGANTION DEBRIDEMENT AND YONATHAN/EXCISON SCAR Indications for Procedure Pre-Operative Diagnosis: CELLITIS RULE OUT SEPTIC KNEE Attestation I attest that I discussed the nature of the procedure; its benefits; risks and complications; and alternatives (and the risks and benefits of such alternatives ), prior to the procedure, with the patient (or the patient's legal account retention representative). I attest that, if there was a reasonable possibility of needing a blood transfusion, the patient (or the patient's legal account retention representative) was given the [facility] standardized written summary, pursuant to the [place] Blood Safety Act ([place] Health and Safety Code # 1645, as amended). I attest that I re-evaluated the patient just prior to the surgery and that there has been no change in the patient's H&P, except as documented below: Aurelio Gonzalez MD December 21, 2017 13:26
[2017-12-21] MEDS ORDERED: Propofol 200mg/20ml IV ONE (13:31)
[2017-12-21] MEDS ORDERED: Lidocaine 1% Plain 30 ml INJ ONE (13:31)
[2017-12-21] MEDS ORDERED: fentaNYL 100 mcg/2 mL IV ONE (13:32)
--- NOTE | 2017-12-21 13:39 | Anethesia Preoperative Eval ---
Anesthesia Pre-op PMH/ROS General Date of Evaluation: December 21, 2017 Time of Evaluation: 15:08 Anesthesiologist: Sumit ASA Score: ASA 2 - Emergency Mallampati Score Class I : Soft palate, uvula, fauces, pillars visible Class II: Soft palate, uvula, fauces visible Class III: Soft palate, base of uvula visible Class IV: Only hard plate visible Mallampati Classification: Class II Surgeon: Lisa Diagnosis: R Knee Pain Surgical Procedure: I and D R Knee Anesthesia History: none Family History: no anesthesia problems Allergies: Coded Allergies: No Known Allergies (Unverified , 08/25/17) Medications: see eMAR Past Medical History Cardiovascular: Reports: HTN PSxH Narrative: R TKA Anesthesia Pre-op Phys. Exam Physician Exam Last Vital Signs Date Time Temp Pulse Resp B/P (MAP) Pulse Ox O2 Delivery O2 Flow Rate FiO2 12/21/17 12:00 97.7 75 20 104/70 95 97.7 12/21/17 04:42 Room Air Constitutional: NAD Neurologic: CN 2-12 intact Cardiovascular: RRR Respiratory: CTA Gastrointestinal: S/NT/ND Airway Exam Mallampati Score: Class II ROM: full Teeth: intact Anesthesia Pre-op A/P Risk Assessment & Plan Assessment: ASA 2E Plan: GA Status Change Before Surgery: No Pre-Antibiotics Drug: Already On Chano Arana MD December 21, 2017 13:39
[2017-12-21] MEDS ORDERED: Morphine Sulfate 4mg/ml Inj IVP PRN (13:45)
[2017-12-21] MEDS ORDERED: NeoSporin Gu Irrig 1ml Amp IRRIG ONE ×2 (14:30→14:33)
[2017-12-21] MEDS ORDERED: Bacitracin 50000 Units Vial ONE (15:05)
[2017-12-21] MEDS ORDERED: LR 1000ml 1,000 ML IVLG SCH (15:07)
[2017-12-21] MEDS ORDERED: Metoclopramide 10mg/2ml Inj IVP PRN (15:15)
[2017-12-21] MEDS ORDERED: Acetaminophen (Non formulary) 100 ML IV ONE (15:15)
[2017-12-21] MEDS ORDERED: Atropine Inj 1mg/10ml Syr IV PRN (15:15)
[2017-12-21] MEDS ORDERED: LORazepam Inj 2mg/ml 1ml IV PRN (15:15)
[2017-12-21] MEDS ORDERED: oxyCODONE HCL/Acetaminophen 5/325mg ORAL PRN (15:15)
[2017-12-21] MEDS ORDERED: Midazolam 2mg/2ml Inj IVP PRN (15:15)
[2017-12-21] MEDS ORDERED: Norco 5mg/325mg tab ORAL PRN (15:15)
[2017-12-21] MEDS ORDERED: DiphenhydrAMINE 50mg/ml Inj IVP PRN ×2 (15:15→17:15)
[2017-12-21] MEDS ORDERED: HYDROcodone/Acetamin 7.5/325 tab ORAL PRN (15:15)
[2017-12-21] MEDS ORDERED: fentaNYL 100 mcg/2 mL IV PRN (15:15)
--- NOTE | 2017-12-21 15:55 | Immediate Post-Op Evaluation ---
Immediate Post-Op Evalulation Immediate Post-Op Evalulation Procedure: I and D R Knee Date of Evaluation: December 21, 2017 Time of Evaluation: 17:04 IV Fluids: 1000 LR Blood Products: 0 Estimated Blood Loss: 25 Urinary Output: 0 Blood Pressure Systolic: 95 Blood Pressure Diastolic: 62 Pulse Rate: 68 Respiratory Rate: 16 O2 Sat by Pulse Oximetry: 100 Temperature (Fahrenheit): 97.7 Pain Score (1-10): 3 Nausea: No Vomiting: No Complications 0 Patient Status: awake, reacts, patent, none Hydration Status: adequate Chano Arana MD December 21, 2017 15:55
[2017-12-21] MEDS ORDERED: Ropivacaine 5mg/ml Vial 30ml INJ ONE (16:19)
--- NOTE | 2017-12-21 17:12 | Infectious Diseases Prog Note ---
Assessment/Plan Assessment/Plan A) 1) right knee/leg cellulitis, ? abscess vs hematoma on US right leg , ? deeper infection, hx recent abx including keflex and bactrim - s/p debridement right knee - cultures pending 2) hx right knee surgery, pmh o/w negative 3) allergies negative 4) sh - negative, fh-nc, allergies - negative, mar noted, notes and records reviewed 5) d/w RN P) 1) vancomycin and cefepime for now 2) f/u on surgical cultures 3) check labs, bc negative 4) will d/w primary and ortho teams 5) will review operative report Subjective Constitutional: Reports: fever, other - patient seen post-op and sedated, ros limited Allergies: Coded Allergies: No Known Allergies (Unverified , 08/25/17) Objective Vital Signs Last 24 Hour Vital Signs Date Time Temp Pulse Resp B/P (MAP) Pulse Ox O2 Delivery O2 Flow Rate FiO2 12/21/17 12:00 97.7 75 20 104/70 95 97.7 12/21/17 11:00 98.1 12/21/17 10:30 98.1 12/21/17 08:00 98.1 85 21 107/71 100 98.1 12/21/17 04:42 Room Air 12/21/17 04:36 97.5 78 16 129/77 98 97.5 12/21/17 00:39 Room Air 12/21/17 00:00 98.2 76 17 121/84 100 98.2 12/20/17 23:20 98.4 12/20/17 22:21 98.4 12/20/17 20:01 98.4 95 17 118/86 100 98.4 12/20/17 20:00 Room Air Height (Feet): 5 Height (Inches): 11.00 Weight (Pounds): 180 General Appearance: other - patient seen in post-op, exam limited, sedated, non -verbal, on monitor Objective US right knee: IMPRESSION: Complex nonvascular fluid collection noted within the soft tissues about the right knee measuring 3.0 x 3.3 cm. Findings represent old hematoma versus abscess. Microbiology Date/Time Source Procedure Growth Status 12/19/17 00:45 Blood Blood Culture - Preliminary NO GROWTH AFTER 48 HOURS Resulted 12/19/17 00:30 Blood Blood Culture - Preliminary NO GROWTH AFTER 48 HOURS Resulted 12/19/17 10:45 Urine,Clean Catch Urine Culture - Final NO GROWTH AFTER 48 HOURS Complete Labs Test 12/19/17 00:30 12/19/17 10:45 12/19/17 17:30 12/20/17 05:40 White Blood Count 8.7 K/UL (4.8-10.8) 9.0 K/UL (4.8-10.8) Red Blood Count 4.31 M/UL (4.70-6.10) 4.72 M/UL (4.70-6.10) Hemoglobin 10.6 G/DL (14.2-18.0) 11.7 G/DL (14.2-18.0) Hematocrit 34.0 % (42.0-52.0) 36.5 % (42.0-52.0) Mean Corpuscular Volume 79 FL (80-99) 77 FL (80-99) Mean Corpuscular Hemoglobin 24.6 PG (27.0-31.0) 24.9 PG (27.0-31.0) Mean Corpuscular Hemoglobin Concent 31.2 G/DL (32.0-36.0) 32.2 G/DL (32.0-36.0) Red Cell Distribution Width 16.0 % (11.6-14.8) 15.9 % (11.6-14.8) Platelet Count 308 K/UL (150-450) 334 K/UL (150-450) Mean Platelet Volume 5.7 FL (6.5-10.1) 6.0 FL (6.5-10.1) Neutrophils (%) (Auto) 55.1 % (45.0-75.0) 59.3 % (45.0-75.0) Lymphocytes (%) (Auto) 31.1 % (20.0-45.0) 27.3 % (20.0-45.0) Monocytes (%) (Auto) 11.1 % (1.0-10.0) 10.6 % (1.0-10.0) Eosinophils (%) (Auto) 1.8 % (0.0-3.0) 2.0 % (0.0-3.0) Basophils (%) (Auto) 0.9 % (0.0-2.0) 0.7 % (0.0-2.0) Sodium Level 142 MMOL/L (136-145) 140 MMOL/L (136-145) Potassium Level 3.9 MMOL/L (3.5-5.1) 4.1 MMOL/L (3.5-5.1) Chloride Level 107 MMOL/L (98-107) 103 MMOL/L (98-107) Carbon Dioxide Level 24 MMOL/L (21-32) 28 MMOL/L (21-32) Anion Gap 11 mmol/L (5-15) 9 mmol/L (5-15) Blood Urea Nitrogen 19 mg/dL (7-18) 17 mg/dL (7-18) Creatinine 1.1 MG/DL (0.55-1.30) 1.2 MG/DL (0.55-1.30) Estimat Glomerular Filtration Rate > 60 mL/min (>60) > 60 mL/min (>60) Glucose Level 150 MG/DL (74-106) 106 MG/DL (74-106) Calcium Level 8.2 MG/DL (8.5-10.1) 9.2 MG/DL (8.5-10.1) Total Bilirubin 0.3 MG/DL (0.2-1.0) Aspartate Amino Transf (AST/SGOT) 15 U/L (15-37) Alanine Aminotransferase (ALT/SGPT) 18 U/L (12-78) Alkaline Phosphatase 95 U/L (46-116) Total Protein 6.6 G/DL (6.4-8.2) Albumin 3.0 G/DL (3.4-5.0) Globulin 3.6 g/dL Albumin/Globulin Ratio 0.8 (1.0-2.7) Urine Color Pale yellow Urine Appearance Clear Urine pH 7 (4.5-8.0) Urine Specific [place] 1.010 (1.005-1.035) Urine Protein Negative (NEGATIVE) Urine Glucose (UA) Negative (NEGATIVE) Urine Ketones Negative (NEGATIVE) Urine Occult Blood Negative (NEGATIVE) Urine Nitrite Negative (NEGATIVE) Urine Bilirubin Negative (NEGATIVE) Urine Urobilinogen Normal MG/DL (0.0-1.0) Urine Leukocyte Esterase Negative (NEGATIVE) Urine RBC 0 /HPF (0 - 0) Urine WBC 0-2 /HPF (0 - 0) Urine Squamous Epithelial Cells Occasional /LPF Urine Bacteria Occasional /HPF (NONE) Erythrocyte Sedimentation Rate 27 MM/HR (0-20) C-Reactive Protein, Quantitative 3.0 mg/dL (0.00-0.90) Test 12/20/17 19:45 12/21/17 13:45 Vancomycin Level Trough 11.5 ug/mL (5.0-12.0) Prothrombin Time 10.2 SEC (9.30-11.50) Prothromb Time International Ratio 1.0 (0.9-1.1) Activated Partial Thromboplast Time 34 SEC (23-33) Laboratory Tests Test 12/20/17 19:45 12/21/17 13:45 Vancomycin Level Trough 11.5 ug/mL (5.0-12.0) Prothrombin Time 10.2 SEC (9.30-11.50) Prothromb Time International Ratio 1.0 (0.9-1.1) Activated Partial Thromboplast Time 34 SEC (23-33) H Current Medications Medications (Trade) Dose Ordered Sig/Kwame Route PRN Reason Start Time Stop Time Status Last Admin Dose Admin Acetaminophen (Tylenol) 650 mg Q6H PRN ORAL Mild Pain/Temp > 100.5 12/18/17 21:29 01/17/18 21:28 Acetaminophen/ Hydrocodone Bitart ([place] 10/325) 2 tab Q4H PRN ORAL Pain Scale (3-4) 12/21/17 08:30 12/28/17 07:59 Acetaminophen/ Hydrocodone Bitart ([place] 5/325) 1 tab Q1H PRN ORAL Mild Pain (Pain Scale 1-3) 12/21/17 15:15 12/21/17 19:00 Acetaminophen/ Hydrocodone Bitart ([place] 7.5/325) 1 tab Q1H PRN ORAL Moderate Pain (Pain Scale 4-6) 12/21/17 15:15 12/21/17 19:00 Al Hydroxide/Mg Hydroxide (Mylanta) 15 ml Q1H PRN ORAL gi upset 12/21/17 15:15 12/21/17 19:00 Al Hydroxide/Mg Hydroxide (Mylanta) 30 ml Q6H PRN ORAL GERD 12/21/17 08:00 01/20/18 07:59 Atropine Sulfate (Atropine) 0.5 mg Q5M PRN IV HR <40 12/21/17 15:15 12/21/17 19:00 Cefepime HCl 2 gm/ Dextrose 55 ml @ 110 mls/hr Q12H IVPB 12/18/17 22:30 12/25/17 22:29 12/20/17 23:58 Clonidine HCl (Catapres Tab) 0.1 mg Q8H PRN ORAL For High Blood Pressure>160 12/21/17 08:00 01/20/18 07:59 Diphenhydramine HCl (Benadryl) 25 mg Q15M PRN IVP Itching 12/21/17 15:15 12/21/17 19:00 Diphenhydramine HCl (Benadryl) 25 mg Q6H PRN ORAL Itching 12/21/17 08:00 01/20/18 07:59 Docusate Sodium (Colace) 100 mg TWICE A DAY NG 12/21/17 09:00 01/20/18 08:59 Enoxaparin Sodium (Lovenox) 40 mg DAILY SUBQ 12/22/17 09:00 01/05/18 08:59 Fentanyl Citrate (Sublimaze 100 mcg/2 mL) 25 mcg Q10M PRN IV Moderate Pain (Pain Scale 4-6) 12/21/17 15:15 12/21/17 19:00 Hydralazine HCl (Apresoline) 5 mg Q30M PRN IV SBP>160 / DBP>90 12/21/17 15:15 12/21/17 19:00 Hydromorphone HCl (Dilaudid) 1.5 mg Q3H PRN SUBQ Severe Breakthru Pain (>7) 12/21/17 08:00 12/28/17 07:59 12/21/17 10:30 Lactated Ringer's 1,000 ml @ 10 mls/hr Q24H IVLG 12/21/17 15:07 12/21/17 17:06 Lactated Ringer's 1,000 ml @ 125 mls/hr Q8H IV 12/21/17 10:00 01/20/18 09:59 12/21/17 11:35 Lactobacillus Acidophilus (Culturelle) 1 tab TWICE A DAY ORAL 12/20/17 18:00 01/19/18 17:59 5/12/18 17:14 Lorazepam (Ativan 2mg/ml 1ml) 1 mg Q15M PRN IV For Anxiety 12/21/17 15:15 12/21/17 19:00 Magnesium Hydroxide (Mom) 30 ml DAILYPRN PRN ORAL Constipation 12/21/17 08:00 01/20/18 07:59 Magnesium Citrate (Citrate Of Magnesia) 300 ml Q12HR PRN ORAL constipation 12/21/17 08:00 01/20/18 07:59 Metoclopramide HCl (Reglan) 10 mg Q1H PRN IVP Nausea & Vomiting 12/21/17 15:15 12/21/17 19:00 Midazolam HCl (Versed 2mg/2ml vial) 1 mg Q15M PRN IVP For Anxiety 12/21/17 15:15 12/21/17 19:00 Morphine Sulfate (Morphine Sulfate) 4 mg Q4H PRN IVP Severe Pain (Pain Scale 7-10) 12/21/17 13:45 12/28/17 13:44 Ondansetron HCl (Zofran) 4 mg Q1H PRN IVP Nausea & Vomiting 12/21/17 15:15 12/21/17 19:00 Ondansetron HCl (Zofran) 4 mg Q8H PRN IVP Nausea & Vomiting 12/20/17 11:30 01/19/18 11:29 Oxycodone HCl (Roxicodone) 15 mg Q3H PRN ORAL Moderate Breakthru Pain (5-7) 12/21/17 08:00 12/28/17 07:59 Oxycodone/ Acetaminophen (Percocet 5-325) 1 tab Q1H PRN ORAL Severe Pain (Pain Scale 7-10) 12/21/17 15:15 12/21/17 19:00 Pantoprazole (Protonix) 40 mg BEDTIME ORAL 12/21/17 21:00 01/20/18 20:59 Phenol/Menthol (Chloraseptic) 1 spray Q3H PRN ORAL SORE THROAT 12/21/17 08:00 01/20/18 07:59 Sennosides (Senokot) 1 tab BID ORAL 12/21/17 09:00 01/20/18 08:59 Vancomycin HCl (Vanco rx to dose) 1 ea DAILY PRN MISC Per rx protocol 5/11/18 07:45 01/18/18 07:44 Vancomycin HCl/ Dextrose 250 ml @ 166.667 mls/hr Q12HR IVPB 12/19/17 09:00 12/24/17 08:59 12/21/17 09:50 Zolpidem Tartrate (Ambien) 5 mg HSPRN PRN ORAL Insomnia 12/20/17 21:00 12/27/17 20:59 CALIN GRULLON December 21, 2017 17:12
[2017-12-21] MEDS ORDERED: Rate Change PCA 1 Each MISC PRN (17:15)
[2017-12-21] MEDS ORDERED: Naloxone 0.4mg/ml Inj IVP PRN (17:15)
[2017-12-21] MEDS ORDERED: PCA Education Pamphlet MISC SCH (17:15)
[2017-12-21] MEDS ORDERED: LORazepam 1mg tab ORAL PRN (17:15)
[2017-12-21] MEDS ORDERED: PCA Morphine 1mg/ml 30 ML IV PRN (17:15)
[2017-12-21] MEDS: PCA Morphine 1mg/ml 30 ML IV PRN (18:48)
[2017-12-21] MEDS: PCA shift volume MISC SCH (19:11)
[2017-12-22 00:09] VITALS: BP 118/63
[2017-12-22] MEDS: Cefepime HCl 2 GM in D5W 55 ML IVPB SCH ×3 (00:13→22:56)
[2017-12-22] MEDS: LR 1000ml 1,000 ML IV SCH ×4 (01:43→20:39)
[2017-12-22 04:21] VITALS: BP 103/54
[2017-12-22] MEDS: HYDROcodone/Acetamin 10/325 tab ORAL PRN ×2 (06:06→18:03)
[2017-12-22] MEDS: PCA shift volume MISC SCH ×2 (07:39→19:00)
[2017-12-22 08:00] VITALS: BP 121/69
[2017-12-22 08:13] LABS: BASOPHILS % (AUTO) 0.1 % (0.0-2.0); HEMATOCRIT 29.5 % (42.0-52.0); HEMOGLOBIN 9.3 G/DL (14.2-18.0); MEAN CORPUSCULAR VOLUME 78 FL (80-99); MONOCYTES % (AUTO) 7.2 % (1.0-10.0); NEUTROPHILS % (AUTO) 80.8 % (45.0-75.0); PLATELET COUNT 353 K/UL (150-450); RED BLOOD COUNT 3.79 M/UL (4.70-6.10); RED CELL DISTRIBUTION WIDTH 15.8 % (11.6-14.8); WHITE BLOOD COUNT 11.1 K/UL (4.8-10.8)
[2017-12-22 08:23] LABS: ANION GAP 8 mmol/L (5-15); BLOOD UREA NITROGEN 22 mg/dL (7-18); CALCIUM 8.6 MG/DL (8.5-10.1); CARBON DIOXIDE 27 MMOL/L (21-32); CHLORIDE 105 MMOL/L (98-107); CREATININE 1.1 MG/DL (0.55-1.30); POTASSIUM 4.7 MMOL/L (3.5-5.1); SODIUM 140 MMOL/L (136-145)
--- NOTE | 2017-12-22 08:30 | 48 Hour Post Anesthesia Eval ---
Post Anesthesia Evaluation Procedure: I and D R Knee Date of Evaluation: December 22, 2017 Time of Evaluation: 08:28 Blood Pressure Systolic: 116 0: 74 Pulse Rate: 82 Respiratory Rate: 22 Temperature (Fahrenheit): 97.2 O2 Sat by Pulse Oximetry: 98 Airway: patent Nausea: No Vomiting: No Pain Intensity: 3 Hydration Status: adequate Cardiopulmonary Status: stable Mental Status/LOC: patient returned to baseline Follow-up Care/Observations: n/a Post-Anesthesia Complications: none Follow-up care needed: N/A Arnel Osborn MD December 22, 2017 08:30
[2017-12-22] MEDS: Lactobacillus-GG tablet ORAL SCH ×2 (09:27→17:37)
[2017-12-22] MEDS: Docusate 100mg/10ml Liq NG SCH ×2 (09:27→17:37)
[2017-12-22] MEDS: Sennosides 8.6mg ORAL SCH ×2 (09:27→17:37)
[2017-12-22] MEDS: Enoxaparin 40mg Inj SUBQ SCH (09:29)
[2017-12-22] MEDS: Vancomycin 1250mg/D5W 250ml IVPB SCH (09:34)
--- NOTE | 2017-12-22 11:55 | Infectious Diseases Prog Note ---
Assessment/Plan Assessment/Plan A) 1) right below knee/leg cellulitis/abscess, s/p debridement, hx recent abx including keflex and bactrim 2) hx right knee surgery, pmh o/w negative 3) allergies negative 4) sh - negative, fh-nc, allergies - negative, mar noted, notes and records reviewed 5) d/w RN P) 1) vancomycin and cefepime for now 2) f/u on surgical cultures 3) check labs, bc negative 4) will d/w primary and ortho teams 5) will review operative report Subjective Constitutional: Denies: fever HEENT: Denies: congestion Respiratory: Denies: shortness of breath Cardiovascular: Denies: chest pain Gastrointestinal/Abdominal: Denies: nausea, vomiting, diarrhea Genitourinary: Reports: other - no wang; Denies: dysuria, hematuria Neurologic: Denies: headache Psychiatric: Denies: depression Skin: Denies: rash Hematologic: Denies: bleeding Musculoskeletal: Reports: pain - controlled pain of right knee Allergies: Coded Allergies: No Known Allergies (Unverified , 08/25/17) Objective Vital Signs Last 24 Hour Vital Signs Date Time Temp Pulse Resp B/P (MAP) Pulse Ox O2 Delivery O2 Flow Rate FiO2 12/22/17 08:30 207.0 82 22 98 12/22/17 08:00 97.7 79 21 121/69 96 97.7 12/22/17 07:05 98.1 12/22/17 06:06 98.1 12/22/17 04:25 Room Air 12/22/17 04:21 98.1 92 17 103/54 97 98.1 12/22/17 03:44 17 12/22/17 00:21 Room Air 12/22/17 00:09 97.2 99 16 118/63 93 97.2 12/21/17 23:44 18 12/21/17 21:54 Room Air 12/21/17 20:09 97.2 91 17 109/57 98 97.2 12/21/17 19:44 17 12/21/17 19:18 97.8 12/21/17 19:14 17 12/21/17 18:48 97.8 12/21/17 18:44 17 12/21/17 18:29 17 12/21/17 18:14 17 12/21/17 18:00 97.8 75 17 119/75 100 Nasal Cannula 3.0 97.8 12/21/17 18:00 20 12/21/17 17:45 74 18 118/74 100 Nasal Cannula 3.0 12/21/17 17:45 97.7 12/21/17 17:45 18 12/21/17 17:35 78 20 120/76 100 Nasal Cannula 3.0 12/21/17 17:25 76 17 118/76 100 Nasal Cannula 3.0 12/21/17 17:15 82 21 123/76 100 Simple Mask 6.0 12/21/17 17:10 77 14 118/73 100 Simple Mask 6.0 12/21/17 17:08 97.7 86 16 95/62 100 Simple Mask 6.0 97.7 12/21/17 17:07 207.9 68 16 100 12/21/17 12:00 97.7 75 20 104/70 95 97.7 Height (Feet): 5 Height (Inches): 11.00 Weight (Pounds): 180 General Appearance: no acute distress HEENT: normocephalic, atraumatic, anicteric, mucous membranes moist Respiratory/Chest: lungs clear, normal breath sounds, no respiratory distress, no accessory muscle use Cardiovascular: normal rate, regular rhythm, no gallop/murmur, no JVD Abdomen: normal bowel sounds, soft, non tender, no organomegaly, non distended Genitourinary: other - no wang Extremities: no cyanosis Skin: no rash Neurologic/Psychiatric: 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 Findings represent old hematoma versus abscess. Microbiology Date/Time Source Procedure Growth Status 12/19/17 00:45 Blood Blood Culture - Preliminary NO GROWTH AFTER 72 HOURS Resulted 12/19/17 10:45 Urine,Clean Catch Urine Culture - Final NO GROWTH AFTER 48 HOURS Complete Laboratory Tests Test 12/21/17 13:45 12/22/17 05:45 Prothrombin Time 10.2 SEC (9.30-11.50) Prothromb Time International Ratio 1.0 (0.9-1.1) Activated Partial Thromboplast Time 34 SEC (23-33) H White Blood Count 11.1 K/UL (4.8-10.8) H Red Blood Count 3.79 M/UL (4.70-6.10) L Hemoglobin 9.3 G/DL (14.2-18.0) L Hematocrit 29.5 % (42.0-52.0) L Mean Corpuscular Volume 78 FL (80-99) L Mean Corpuscular Hemoglobin 24.4 PG (27.0-31.0) L Mean Corpuscular Hemoglobin Concent 31.4 G/DL (32.0-36.0) L Red Cell Distribution Width 15.8 % (11.6-14.8) H Platelet Count 353 K/UL (150-450) Mean Platelet Volume 6.3 FL (6.5-10.1) L Neutrophils (%) (Auto) 80.8 % (45.0-75.0) H Lymphocytes (%) (Auto) 12.0 % (20.0-45.0) L Monocytes (%) (Auto) 7.2 % (1.0-10.0) Eosinophils (%) (Auto) 0.0 % (0.0-3.0) Basophils (%) (Auto) 0.1 % (0.0-2.0) Sodium Level 140 MMOL/L (136-145) Potassium Level 4.7 MMOL/L (3.5-5.1) Chloride Level 105 MMOL/L (98-107) Carbon Dioxide Level 27 MMOL/L (21-32) Anion Gap 8 mmol/L (5-15) Blood Urea Nitrogen 22 mg/dL (7-18) H Creatinine 1.1 MG/DL (0.55-1.30) Estimat Glomerular Filtration Rate > 60 mL/min (>60) Glucose Level 154 MG/DL (74-106) H Calcium Level 8.6 MG/DL (8.5-10.1) Current Medications Medications (Trade) Dose Ordered Sig/Kwame Route PRN Reason Start Time Stop Time Status Last Admin Dose Admin Acetaminophen (Tylenol) 650 mg Q6H PRN ORAL Mild Pain/Temp > 100.5 12/18/17 21:29 01/17/18 21:28 Acetaminophen/ Hydrocodone Bitart ([place] 103[address]) 2 tab Q4H PRN ORAL Pain Scale (3-4) 12/21/17 08:30 12/28/17 07:59 12/22/17 06:06 Al Hydroxide/Mg Hydroxide (Mylanta) 30 ml Q6H PRN ORAL GERD 12/21/17 08:00 01/20/18 07:59 Cefepime HCl 2 gm/ Dextrose 55 ml @ 110 mls/hr Q12H IVPB 12/18/17 22:30 12/25/17 22:29 12/22/17 11:19 Clonidine HCl (Catapres Tab) 0.1 mg Q8H PRN ORAL For High Blood Pressure>160 12/21/17 08:00 01/20/18 07:59 Diphenhydramine HCl (Benadryl) 25 mg Q6H PRN IVP Itching/Pruritis 12/21/17 17:15 12/23/17 17:14 Diphenhydramine HCl (Benadryl) 25 mg Q6H PRN ORAL Itching 12/21/17 08:00 01/20/18 07:59 Docusate Sodium (Colace) 100 mg TWICE A DAY NG 12/21/17 09:00 01/20/18 08:59 12/22/17 09:27 Enoxaparin Sodium (Lovenox) 40 mg DAILY SUBQ 12/22/17 09:00 01/05/18 08:59 12/22/17 09:29 Hydromorphone HCl (Dilaudid) 1.5 mg Q3H PRN SUBQ Severe Breakthru Pain (>7) 12/21/17 08:00 12/28/17 07:59 12/21/17 10:30 Lactated Ringer's 1,000 ml @ 125 mls/hr Q8H IV 12/21/17 10:00 01/20/18 09:59 12/22/17 09:34 Lactobacillus Acidophilus (Culturelle) 1 tab TWICE A DAY ORAL 12/20/17 18:00 01/19/18 17:59 12/22/17 09:27 Lorazepam (Ativan) 1 mg Q4H PRN ORAL Muscle Spasm 12/21/17 17:15 12/23/17 17:14 Magnesium Hydroxide (Mom) 30 ml DAILYPRN PRN ORAL Constipation 12/21/17 08:00 01/20/18 07:59 Magnesium Citrate (Citrate Of Magnesia) 300 ml Q12HR PRN ORAL constipation 12/21/17 08:00 01/20/18 07:59 Miscellaneous Medication (COMPUTER PROGRAMMER CHIEF Rate Change) 1 ea DAILY PRN MISC rate change 12/21/17 17:15 12/23/17 17:14 Miscellaneous Medication (COMPUTER PROGRAMMER CHIEF shift volume) 1 ea Q12HR@0700,1900 MISC 12/21/17 19:00 12/23/17 18:59 12/22/17 07:39 Morphine Sulfate 30 ml @ 0 mls/hr Q24H PRN IV For Pain 12/22/17 17:15 12/24/17 17:14 12/21/17 18:48 Naloxone HCl (Narcan) 0.1 mg Q1M PRN IVP RR<10/min OR SBP<90 mmHg 12/21/17 17:15 12/23/17 17:14 Ondansetron HCl (Zofran) 4 mg Q6H PRN IVP Nausea & Vomiting 12/21/17 17:15 12/23/17 17:14 Ondansetron HCl (Zofran) 4 mg Q8H PRN IVP Nausea & Vomiting 12/20/17 11:30 01/19/18 11:29 Oxycodone HCl (Roxicodone) 15 mg Q3H PRN ORAL Moderate Breakthru Pain (5-7) 12/21/17 08:00 12/28/17 07:59 Pantoprazole (Protonix) 40 mg BEDTIME ORAL 12/21/17 21:00 01/20/18 20:59 12/21/17 21:28 Phenol/Menthol (Chloraseptic) 1 spray Q3H PRN ORAL SORE THROAT 12/21/17 08:00 01/20/18 07:59 Sennosides (Senokot) 1 tab BID ORAL 12/21/17 09:00 01/20/18 08:59 12/22/17 09:27 Temazepam (Restoril) 7.5 mg HSPRN PRN ORAL Insomnia 12/21/17 17:15 12/23/17 17:14 Vancomycin HCl (Vanco rx to dose) 1 ea DAILY PRN MISC Per rx protocol 12/19/17 07:45 6/10/18 07:44 Vancomycin HCl/ Dextrose 250 ml @ 166.667 mls/hr Q12HR IVPB 12/22/17 21:00 12/27/17 20:59 UNV Zolpidem Tartrate (Ambien) 5 mg HSPRN PRN ORAL Insomnia 12/20/17 21:00 12/27/17 20:59 CALIN GRULLON December 22, 2017 11:55
[2017-12-22 12:00] VITALS: BP 113/76
[2017-12-22 16:00] VITALS: BP 118/77
[2017-12-22] MEDS ORDERED: Tubing IV Secondary IV ONE (17:05)
[2017-12-22] MEDS: PCA Morphine 1mg/ml 30 ML IV PRN (18:58)
--- NOTE | 2017-12-22 19:14 | Cardiology Progress Note ---
Assessment/Plan Assessment/Plan cellulitis bellow th knee s/p knee surgey fludi collection bellow the kneed d/w id d/w ortho iv abx s/p surgicl debeidment of abcess nto involving joint dvt ppx lmwh Subjective Cardiovascular: Denies: chest pain, lightheadedness, palpitations Respiratory: Denies: shortness of breath Gastrointestinal/Abdominal: Denies: abdominal pain Genitourinary: Denies: burning Subjective walked once today Objective Last 24 Hour Vital Signs Date Time Temp Pulse Resp B/P (MAP) Pulse Ox O2 Delivery O2 Flow Rate FiO2 12/22/17 16:00 98.2 95 22 118/77 97 98.2 12/22/17 15:44 18 12/22/17 12:00 97.7 86 20 113/76 99 97.7 12/22/17 11:44 18 12/22/17 08:30 207.0 82 22 98 12/22/17 08:00 97.7 79 21 121/69 96 97.7 12/22/17 07:05 98.1 12/22/17 06:06 98.1 12/22/17 04:25 Room Air 12/22/17 04:21 98.1 92 17 103/54 97 98.1 12/22/17 03:44 17 12/22/17 00:21 Room Air 12/22/17 00:09 97.2 99 16 118/63 93 97.2 12/21/17 23:44 18 12/21/17 21:54 Room Air 12/21/17 20:09 97.2 91 17 109/57 98 97.2 12/21/17 19:44 17 12/21/17 19:18 97.8 12/21/17 19:14 17 General Appearance: alert Neck: supple Cardiovascular: normal rate Respiratory/Chest: lungs clear, normal breath sounds Abdomen: non tender, soft Extremities: no swelling Intake and Output 12/21/17 12/22/17 19:00 07:00 Intake Total 1125 ml 1180.000 ml Output Total 50 ml 960 ml Balance 1075 ml 220.000 ml IV Total 1125 ml 1180.000 ml Output Urine Total 800 ml Drainage Total 160 ml Estimated Blood Loss 50 ml Laboratory Tests Test 12/22/17 05:45 White Blood Count 11.1 K/UL (4.8-10.8) H Red Blood Count 3.79 M/UL (4.70-6.10) L Hemoglobin 9.3 G/DL (14.2-18.0) L Hematocrit 29.5 % (42.0-52.0) L Mean Corpuscular Volume 78 FL (80-99) L Mean Corpuscular Hemoglobin 24.4 PG (27.0-31.0) L Mean Corpuscular Hemoglobin Concent 31.4 G/DL (32.0-36.0) L Red Cell Distribution Width 15.8 % (11.6-14.8) H Platelet Count 353 K/UL (150-450) Mean Platelet Volume 6.3 FL (6.5-10.1) L Neutrophils (%) (Auto) 80.8 % (45.0-75.0) H Lymphocytes (%) (Auto) 12.0 % (20.0-45.0) L Monocytes (%) (Auto) 7.2 % (1.0-10.0) Eosinophils (%) (Auto) 0.0 % (0.0-3.0) Basophils (%) (Auto) 0.1 % (0.0-2.0) Sodium Level 140 MMOL/L (136-145) Potassium Level 4.7 MMOL/L (3.5-5.1) Chloride Level 105 MMOL/L (98-107) Carbon Dioxide Level 27 MMOL/L (21-32) Anion Gap 8 mmol/L (5-15) Blood Urea Nitrogen 22 mg/dL (7-18) H Creatinine 1.1 MG/DL (0.55-1.30) Estimat Glomerular Filtration Rate > 60 mL/min (>60) Glucose Level 154 MG/DL (74-106) H Calcium Level 8.6 MG/DL (8.5-10.1) Eitan Rosenberg MD December 22, 2017 19:14
[2017-12-22 20:00] VITALS: BP 131/81
[2017-12-22] MEDS: Vancomycin 1250mg/D5W 250ml 250 ML IVPB SCH (20:39)
[2017-12-22] MEDS ORDERED: Naloxone 0.4mg/ml Inj IVP PRN (22:40)
[2017-12-22] MEDS ORDERED: Rate Change PCA 1 Each MISC PRN (22:45)
[2017-12-23] MEDS ORDERED: LORazepam 1mg tab ORAL PRN (01:15)
--- NOTE | 2017-12-23 01:45 | Progress Note ---
DATE: 12/22/2017 ACUTE PAIN MANAGEMENT PHYSICIAN PROGRESS NOTE HISTORY: I spent over 75 minutes in consultation today, as the patient returned to [facility] for revision knee surgery. The surgeon, Dr. Aurelio Gonzalez consulted me to help with this patient's postoperative pain. The patient is well known to me from the 07/2017 hospitalization when he underwent a revision knee arthroplasty. His course continues to be complicated with quadriceps muscle ruptures and right knee abscess. I saw the patient at bedside. I performed detailed history and physical examination. I reviewed the medical record in detail. I spoke with the hospital pharmacist along with the surgeon, Dr. Aurelio Gonzalez and the hospitalist, Dr. Rosenberg. I reviewed surgical records from yesterday's revision surgery at [facility] along with records from the nursing and pharmacy departments. I reviewed the patient's 07/2017 hospitalization after his revision surgery. The patient was in extreme pain at that time and required high doses of subcutaneous Dilaudid along with high-dose oxycodone as well as hydrocodone. 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 Additionally, I have ordered breakthrough doses of [place] 10/325 mg two tablets orally every four hours p.r.n. for mild breakthrough pain. I have ordered Dilaudid 1.5 mg subcutaneously every three hours for severe breakthrough pain. I have also ordered oxycodone instant release 15 mg orally every three hours p.r.n. for moderate breakthrough pain. I have placed the patient on Protonix 40 mg nightly for GI ulcer prophylaxis and I have also ordered p.r.n. dose of Mylanta 30 mL q.6 h. in case of any GERD symptom exacerbation. I have placed the patient on Colace 100 mg b.i.d. as a stool softener. I have added p.r.n. dose of milk of magnesia and magnesium citrate as a rescue laxative. I have ordered Chloraseptic spray at the bedside to help with any sore throat complaints after surgery. I have also ordered Benadryl for itching complaints at a dose of 20 mg q.6 h. p.r.n. I will defer the patient's antibiotics and infectious disease issues to Dr. López, whose consultation is much appreciated. I have streamlined the patient's medication list to reduce the risk of medication administration errors. Dr. Gonzalez has placed the patient on Lovenox for DVT prophylaxis at a dose of 40 mg daily. I will provide a prescription for 75 tablets of Percocet 10/325 mg for outpatient usage. The patient does live with his newly wed bride at home in [place]. Dave Cruz M.D. DR: DIEGO JOB#: [id number] CC:
[2017-12-23] MEDS: oxyCODONE 5mg IR tab ORAL PRN (03:41)
[2017-12-23 04:00] VITALS: BP 120/74
[2017-12-23] MEDS ORDERED: PCA shift volume MISC SCH (07:00)
[2017-12-23 08:06] LABS: BASOPHILS % (AUTO) 0.8 % (0.0-2.0); EOSINOPHILS % (AUTO) 0.8 % (0.0-3.0); HEMATOCRIT 25.3 % (42.0-52.0); LYMPHOCYTES % (AUTO) 31.7 % (20.0-45.0); MEAN CORPUSCULAR VOLUME 78 FL (80-99); MONOCYTES % (AUTO) 9.3 % (1.0-10.0); NEUTROPHILS % (AUTO) 57.4 % (45.0-75.0); PLATELET COUNT 309 K/UL (150-450); RED BLOOD COUNT 3.23 M/UL (4.70-6.10); WHITE BLOOD COUNT 10.3 K/UL (4.8-10.8)
[2017-12-23 08:24] LABS: ANION GAP 2 mmol/L (5-15); BLOOD UREA NITROGEN 19 mg/dL (7-18); CALCIUM 8.4 MG/DL (8.5-10.1); CARBON DIOXIDE 31 MMOL/L (21-32); CHLORIDE 108 MMOL/L (98-107); CREATININE 1.2 MG/DL (0.55-1.30); POTASSIUM 4.4 MMOL/L (3.5-5.1); SODIUM 141 MMOL/L (136-145)
[2017-12-23 08:36] VITALS: BP 116/64
[2017-12-23] MEDS: Sennosides 8.6mg ORAL SCH ×2 (08:53→17:50)
[2017-12-23] MEDS: Lactobacillus-GG tablet ORAL SCH ×2 (08:53→17:51)
[2017-12-23] MEDS: Docusate 100mg/10ml Liq NG SCH ×2 (08:54→17:51)
[2017-12-23] MEDS: Enoxaparin 40mg Inj SUBQ SCH (09:00)
[2017-12-23] MEDS: Vancomycin 1250mg/D5W 250ml 250 ML IVPB SCH (09:52)
[2017-12-23] MEDS: LR 1000ml 1,000 ML IV SCH (10:00)
[2017-12-23] MEDS: HYDROcodone/Acetamin 10/325 tab ORAL PRN (10:12)
[2017-12-23] MEDS: Cefepime HCl 2 GM in D5W 55 ML IVPB SCH (11:00)
[2017-12-23 11:05] LABS: BASOPHILS % (AUTO) 0.9 % (0.0-2.0); HEMOGLOBIN 8.3 G/DL (14.2-18.0); LYMPHOCYTES % (AUTO) 29.2 % (20.0-45.0); MEAN CORPUSCULAR VOLUME 78 FL (80-99); MONOCYTES % (AUTO) 9.3 % (1.0-10.0); NEUTROPHILS % (AUTO) 59.5 % (45.0-75.0); PLATELET COUNT 329 K/UL (150-450); RED BLOOD COUNT 3.45 M/UL (4.70-6.10); RED CELL DISTRIBUTION WIDTH 15.7 % (11.6-14.8); WHITE BLOOD COUNT 9.4 K/UL (4.8-10.8)
[2017-12-23 12:19] VITALS: BP 130/67
--- NOTE | 2017-12-23 14:16 | Cardiology Progress Note ---
Assessment/Plan Assessment/Plan cellulitis bellow the knee s/p knee surgey fludi collection bellow the kneed iv infiltration left forearm communicated w ortho iv abx s/p surgicl debridement of abscess not involving joint dvt ppx lmwh picc line for dc planning will d/w id id doubt an allergic reaction to vanco as the swelling is localized to mily left arm Subjective Cardiovascular: Denies: chest pain, lightheadedness, palpitations Respiratory: Denies: shortness of breath Gastrointestinal/Abdominal: Denies: abdominal pain Genitourinary: Denies: burning Subjective walked some today Objective Last 24 Hour Vital Signs Date Time Temp Pulse Resp B/P (MAP) Pulse Ox O2 Delivery O2 Flow Rate FiO2 12/23/17 12:19 98.4 105 18 130/67 96 98.4 12/23/17 11:44 16 12/23/17 11:11 98.2 12/23/17 10:12 98.2 12/23/17 08:36 98.2 106 20 116/64 97 98.2 12/23/17 07:44 16 12/23/17 04:00 98.2 94 18 120/74 97 98.2 12/23/17 03:44 18 12/22/17 23:44 18 12/22/17 20:00 99.5 112 18 131/81 97 99.5 12/22/17 19:44 18 12/22/17 16:00 98.2 95 22 118/77 97 98.2 12/22/17 15:44 18 General Appearance: alert, other - walking in room ith wlker Neck: supple Cardiovascular: normal rate, regular rhythm Abdomen: non tender, soft Extremities: non-tender, other - mid left forarm swellign not rednes no flucuance Intake and Output 12/22/17 12/23/17 19:00 07:00 Intake Total 1155.000 ml 250 ml Output Total 2400 ml 900 ml Balance -1245.000 ml -650 ml Intake Oral 100 ml 250 ml IV Total 1055.000 ml Output Urine Total 2400 ml 900 ml # Voids 2 2 Laboratory Tests Test 12/23/17 05:35 12/23/17 10:30 White Blood Count 10.3 K/UL (4.8-10.8) 9.4 K/UL (4.8-10.8) Red Blood Count 3.23 M/UL (4.70-6.10) L 3.45 M/UL (4.70-6.10) L Hemoglobin 8.0 G/DL (14.2-18.0) L 8.3 G/DL (14.2-18.0) L Hematocrit 25.3 % (42.0-52.0) L 27.0 % (42.0-52.0) L Mean Corpuscular Volume 78 FL (80-99) L 78 FL (80-99) L Mean Corpuscular Hemoglobin 24.8 PG (27.0-31.0) L 24.0 PG (27.0-31.0) L Mean Corpuscular Hemoglobin Concent 31.7 G/DL (32.0-36.0) L 30.6 G/DL (32.0-36.0) L Red Cell Distribution Width 16.0 % (11.6-14.8) H 15.7 % (11.6-14.8) H Platelet Count 309 K/UL (150-450) 329 K/UL (150-450) Mean Platelet Volume 6.1 FL (6.5-10.1) L 6.0 FL (6.5-10.1) L Neutrophils (%) (Auto) 57.4 % (45.0-75.0) 59.5 % (45.0-75.0) Lymphocytes (%) (Auto) 31.7 % (20.0-45.0) 29.2 % (20.0-45.0) Monocytes (%) (Auto) 9.3 % (1.0-10.0) 9.3 % (1.0-10.0) Eosinophils (%) (Auto) 0.8 % (0.0-3.0) 1.0 % (0.0-3.0) Basophils (%) (Auto) 0.8 % (0.0-2.0) 0.9 % (0.0-2.0) Sodium Level 141 MMOL/L (136-145) Potassium Level 4.4 MMOL/L (3.5-5.1) Chloride Level 108 MMOL/L (98-107) H Carbon Dioxide Level 31 MMOL/L (21-32) Anion Gap 2 mmol/L (5-15) L Blood Urea Nitrogen 19 mg/dL (7-18) H Creatinine 1.2 MG/DL (0.55-1.30) Estimat Glomerular Filtration Rate > 60 mL/min (>60) Glucose Level 91 MG/DL (74-106) Calcium Level 8.4 MG/DL (8.5-10.1) L Microbiology Date/Time Source Procedure Growth Status 12/21/17 15:48 Leg Right Gram Stain - Final Resulted 12/21/17 15:48 Leg Right Aerobic Culture - Preliminary NO GROWTH AFTER 24 HOURS Resulted 12/21/17 15:48 Leg Right Anaerobic Culture Pending Resulted 12/21/17 15:39 Knee Right Gram Stain - Final Resulted 12/21/17 15:39 Knee Right Aerobic Culture - Preliminary NO GROWTH AFTER 24 HOURS Resulted 12/21/17 15:39 Knee Right Anaerobic Culture Pending Resulted Eitan Rosenberg MD December 23, 2017 14:16
--- NOTE | 2017-12-23 14:39 | Cardiology Report ---
APPROVED REPORT EKG Measurement Heart [id number] Normal sinus rhythm Normal ECG
--- NOTE | 2017-12-23 15:12 | Infectious Diseases Prog Note ---
Assessment/Plan Assessment/Plan A) 1) right below knee/leg cellulitis/abscess, s/p debridement, ? osteo/deep infection, hx recent abx including keflex and bactrim - d/w Dr. 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 abx but doesn't thin prosthesis compromised 2) hx right knee surgery, pmh o/w negative 3) allergies negative 4) sh - negative, fh-nc, allergies - negative, mar noted, notes and records reviewed 5) d/w RN P) 1) vancomycin and cefepime x 40 days more for 6 weeks abx post-operatively 2) f/u on surgical cultures - negative so far but patient on prior abx 3) check labs, bc negative 4) continue with primary and ortho teams 5) will review operative report 6) picc line ordered 7) doubt patient had vancomycin allergic reaction, will re-challenge with vancomycin once picc ljne placed (currently on zyvox and cipro pending picc line ) 8) d/w patient and at length 9) d/w pharmacy Subjective Constitutional: Reports: fatigue; Denies: fever HEENT: Denies: congestion Respiratory: Denies: shortness of breath Cardiovascular: Denies: chest pain Gastrointestinal/Abdominal: Denies: nausea, vomiting, diarrhea Genitourinary: Reports: other - no wang; Denies: dysuria, hematuria Neurologic: Denies: headache, numbness Psychiatric: Denies: depression Hematologic: Denies: bleeding Musculoskeletal: Reports: pain - right leg pain controlled Allergies: Coded Allergies: No Known Allergies (Unverified , 08/25/17) Objective Vital Signs Last 24 Hour Vital Signs Date Time Temp Pulse Resp B/P (MAP) Pulse Ox O2 Delivery O2 Flow Rate FiO2 12/23/17 12:19 98.4 105 18 130/67 96 98.4 12/23/17 11:44 16 12/23/17 11:11 98.2 12/23/17 10:12 98.2 12/23/17 08:36 98.2 106 20 116/64 97 98.2 12/23/17 07:44 16 12/23/17 04:00 98.2 94 18 120/74 97 98.2 12/23/17 03:44 18 12/22/17 23:44 18 12/22/17 20:00 99.5 112 18 131/81 97 99.5 12/22/17 19:44 18 12/22/17 16:00 98.2 95 22 118/77 97 98.2 12/22/17 15:44 18 Height (Feet): 5 Height (Inches): 11.00 Weight (Pounds): 180 General Appearance: no acute distress HEENT: normocephalic, atraumatic, anicteric, mucous membranes moist Respiratory/Chest: lungs clear, normal breath sounds, no respiratory distress, no accessory muscle use Cardiovascular: normal rate, regular rhythm, no gallop/murmur, no JVD Abdomen: normal bowel sounds, soft, non tender, no organomegaly Genitourinary: other - no wang Extremities: no cyanosis, other - right leg surgical site covered Skin: no rash, other - iv infiltrated with vancomycin, only local reaction and not systemic rash 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 Findings represent old hematoma versus abscess. Microbiology Date/Time Source Procedure Growth Status 12/21/17 15:48 Leg Right Gram Stain - Final Resulted 12/21/17 15:48 Leg Right Aerobic Culture - Preliminary NO GROWTH AFTER 24 HOURS Resulted 12/21/17 15:48 Leg Right Anaerobic Culture Pending Resulted 12/21/17 15:39 Knee Right Gram Stain - Final Resulted 12/21/17 15:39 Knee Right Aerobic Culture - Preliminary NO GROWTH AFTER 24 HOURS Resulted 12/21/17 15:39 Knee Right Anaerobic Culture Pending Resulted Laboratory Tests Test 12/23/17 05:35 12/23/17 10:30 White Blood Count 10.3 K/UL (4.8-10.8) 9.4 K/UL (4.8-10.8) Red Blood Count 3.23 M/UL (4.70-6.10) L 3.45 M/UL (4.70-6.10) L Hemoglobin 8.0 G/DL (14.2-18.0) L 8.3 G/DL (14.2-18.0) L Hematocrit 25.3 % (42.0-52.0) L 27.0 % (42.0-52.0) L Mean Corpuscular Volume 78 FL (80-99) L 78 FL (80-99) L Mean Corpuscular Hemoglobin 24.8 PG (27.0-31.0) L 24.0 PG (27.0-31.0) L Mean Corpuscular Hemoglobin Concent 31.7 G/DL (32.0-36.0) L 30.6 G/DL (32.0-36.0) L Red Cell Distribution Width 16.0 % (11.6-14.8) H 15.7 % (11.6-14.8) H Platelet Count 309 K/UL (150-450) 329 K/UL (150-450) Mean Platelet Volume 6.1 FL (6.5-10.1) L 6.0 FL (6.5-10.1) L Neutrophils (%) (Auto) 57.4 % (45.0-75.0) 59.5 % (45.0-75.0) Lymphocytes (%) (Auto) 31.7 % (20.0-45.0) 29.2 % (20.0-45.0) Monocytes (%) (Auto) 9.3 % (1.0-10.0) 9.3 % (1.0-10.0) Eosinophils (%) (Auto) 0.8 % (0.0-3.0) 1.0 % (0.0-3.0) Basophils (%) (Auto) 0.8 % (0.0-2.0) 0.9 % (0.0-2.0) Sodium Level 141 MMOL/L (136-145) Potassium Level 4.4 MMOL/L (3.5-5.1) Chloride Level 108 MMOL/L (98-107) H Carbon Dioxide Level 31 MMOL/L (21-32) Anion Gap 2 mmol/L (5-15) L Blood Urea Nitrogen 19 mg/dL (7-18) H Creatinine 1.2 MG/DL (0.55-1.30) Estimat Glomerular Filtration Rate > 60 mL/min (>60) Glucose Level 91 MG/DL (74-106) Calcium Level 8.4 MG/DL (8.5-10.1) L Current Medications Medications (Trade) Dose Ordered Sig/Kwame Route PRN Reason Start Time Stop Time Status Last Admin Dose Admin Acetaminophen (Tylenol) 650 mg Q6H PRN ORAL Mild Pain/Temp > 100.5 12/18/17 21:29 01/17/18 21:28 Acetaminophen/ Hydrocodone Bitart ([place] 10) 2 tab Q4H PRN ORAL MILD BREAKTHROUGH PAIN 1-4 12/22/17 19:00 12/28/17 18:59 12/23/17 10:12 Al Hydroxide/Mg Hydroxide (Mylanta) 30 ml Q6H PRN ORAL GERD 12/21/17 08:00 01/20/18 07:59 Ciprofloxacin (Cipro 500mg tab) 500 mg EVERY 12 HOURS ORAL 12/23/17 21:00 12/26/17 21:00 Clonidine HCl (Catapres Tab) 0.1 mg Q8H PRN ORAL For High Blood Pressure>160 12/21/17 08:00 01/20/18 07:59 Diphenhydramine HCl (Benadryl) 25 mg Q6H PRN ORAL Itching 12/21/17 08:00 01/20/18 07:59 12/23/17 10:19 Docusate Sodium (Colace) 100 mg TWICE A DAY NG 12/21/17 09:00 01/20/18 08:59 12/23/17 08:54 Enoxaparin Sodium (Lovenox) 40 mg DAILY SUBQ 12/22/17 09:00 01/05/18 08:59 12/22/17 09:29 Hydromorphone HCl (Dilaudid) 1.5 mg Q3H PRN SUBQ Severe Breakthru Pain (>7) 12/21/17 08:00 12/28/17 07:59 12/21/17 10:30 Lactated Ringer's 1,000 ml @ 50 mls/hr Q20H IV 12/23/17 10:00 01/22/18 09:59 Lactobacillus Acidophilus (Culturelle) 1 tab TWICE A DAY ORAL 12/20/17 18:00 01/19/18 17:59 12/23/17 08:53 Linezolid (Zyvox) 600 mg EVERY 12 HOURS ORAL 12/23/17 21:00 12/26/17 21:00 Lorazepam (Ativan) 1 mg Q4H PRN ORAL Muscle Spasm 12/23/17 01:15 12/25/17 01:14 Magnesium Hydroxide (Mom) 30 ml DAILYPRN PRN ORAL Constipation 12/21/17 08:00 01/20/18 07:59 Magnesium Citrate (Citrate Of Magnesia) 300 ml Q12HR PRN ORAL constipation 12/21/17 08:00 01/20/18 07:59 Miscellaneous Medication (TEXTILE BROKER Rate Change) 1 ea DAILY PRN MISC rate change 12/22/17 22:45 12/24/17 22:44 Miscellaneous Medication (TEXTILE BROKER shift volume) 1 ea Q12HR@0700,1900 MISC 12/23/17 07:00 12/25/17 06:59 12/23/17 07:00 Morphine Sulfate 30 ml @ 0 mls/hr Q24H PRN IV For Pain 12/23/17 17:15 12/25/17 17:14 Naloxone HCl (Narcan) 0.1 mg Q1M PRN IVP RR<10/min OR SBP<90 mmHg 12/22/17 22:40 12/24/17 22:38 Ondansetron HCl (Zofran) 4 mg Q8H PRN IVP Nausea & Vomiting 12/20/17 11:30 01/19/18 11:29 Oxycodone HCl (Roxicodone) 15 mg Q3H PRN ORAL Moderate Breakthru Pain (5-7) 12/21/17 08:00 12/28/17 07:59 12/23/17 03:41 Pantoprazole (Protonix) 40 mg BEDTIME ORAL 12/21/17 21:00 01/20/18 20:59 12/22/17 20:38 Phenol/Menthol (Chloraseptic) 1 spray Q3H PRN ORAL SORE THROAT 12/21/17 08:00 01/20/18 07:59 Sennosides (Senokot) 1 tab BID ORAL 12/21/17 09:00 01/20/18 08:59 12/23/17 08:53 Temazepam (Restoril) 7.5 mg HSPRN PRN ORAL Insomnia 12/22/17 22:45 12/24/17 22:44 Zolpidem Tartrate (Ambien) 5 mg HSPRN PRN ORAL Insomnia 12/20/17 21:00 12/27/17 20:59 CALIN GRULLON December 23, 2017 15:12
[2017-12-23] MEDS ORDERED: Lidocaine 1% Plain 30 ml INJ PRN (15:45)
[2017-12-23] MEDS ORDERED: Heparin 2000 units/Ns 1000ml INJ PRN (15:45)
[2017-12-23 16:30] VITALS: BP 137/85
[2017-12-23] MEDS ORDERED: PCA Morphine 1mg/ml 30 ML IV PRN (17:15)
[2017-12-23 19:41] VITALS: BP 127/70
[2017-12-23] MEDS ORDERED: Dyna-Hex 2% Top Sol 2oz TOPIC SCH (20:00)
[2017-12-23] MEDS: Ciprofloxacin 500mg tab ORAL SCH (20:35)
[2017-12-24 00:03] VITALS: BP 106/60
[2017-12-24 04:48] VITALS: BP 126/68
[2017-12-24] MEDS: LR 1000ml 1,000 ML IV SCH (05:22)
[2017-12-24] MEDS: Ciprofloxacin 500mg tab ORAL SCH (09:00)
[2017-12-24] MEDS: Enoxaparin 40mg Inj SUBQ SCH (09:00)
[2017-12-24] MEDS: Docusate 100mg/10ml Liq NG SCH ×2 (09:21→17:59)
[2017-12-24] MEDS: Sennosides 8.6mg ORAL SCH ×2 (09:21→17:59)
[2017-12-24] MEDS: Lactobacillus-GG tablet ORAL SCH ×2 (09:21→17:59)
[2017-12-24] MEDS: HYDROcodone/Acetamin 10/325 tab ORAL PRN (09:22)
[2017-12-24] MEDS ORDERED: HYDROcodone/Acetamin 10/325 tab ORAL PRN (09:45)
--- NOTE | 2017-12-24 11:47 | Diagnostic Imaging Report ---
Indications: Needs long-term IV access Technique: Ultrasound confirms patent compressible left basilic vein. Total sterile technique, including sterile probe cover and sterile gel, hat, mask,, sterile gown, large sterile drape, and preparation with 2% chlorhexidine utilized. Local anesthesia with 1% lidocaine. Under real-time ultrasound guidance, puncture basilic vein using 21-gauge needle, documented and archived, passage 0.018 guidewire under direct fluoroscopy, which was used to determine appropriate catheter length, exchange for 5 Chinese peel-away sheath. 5 Chinese Bard dual-lumen power PICC cut to 43 cm. It was inserted through the peel-away sheath. Peel-away sheath and guidewire removed. Catheter fixed to the skin. Both catheter ports aspirated and flushed. Patient tolerated procedure well, without immediate complication. Digital radiograph documents satisfactory catheter tip position, at the cavoatrial junction. Total fluoroscopy time 0.3 minutes. Total dose area product 9.3 dGycm2 Impression: Successful placement of left arm PICC under sonographic and fluoroscopic guidance, as described above.
[2017-12-24 12:00] VITALS: BP 128/82
--- NOTE | 2017-12-24 12:43 | General Progress Note ---
Progress Note Progress Note REVUIEWED\ 1 RECENT INFECTION BY THERAPIST WORK ON DORMANT STAP INFECTION 14 YEARS AGO AT [facility]------CULTURE NEG TO DATE...PLAN IV ABS TIMES 6 WEEKS OR ABS PER ID CONTINUE RX PLAN DRESSING CHANGE BLOODWORK 2 STIFFNESS DUE TO SCAR----EXCCIASION SCAR IN OR ROM FULL EXTENSION TO FULL FLEXION...PLAN NEEDS PAIN MANAGEMENT AND AGGRESSIVE PHYSIO IN CONCERT WILL ORDER NEW LABS CHANGE DRESSING Aurelio Gonzalez MD December 24, 2017 12:43
[2017-12-24] MEDS: Vancomycin 1250mg/D5W 250ml IVPB SCH (13:55)
[2017-12-24] MEDS ORDERED: Ketorolac 30mg Inj IV ONE (14:00)
[2017-12-24] MEDS ORDERED: Naloxone 0.4mg/ml Inj IVP PRN (15:00)
[2017-12-24] MEDS ORDERED: LORazepam 1mg tab ORAL PRN (15:00)
--- NOTE | 2017-12-24 17:15 | Progress Note ---
DATE: 12/24/2017 ACUTE PAIN MANAGEMENT PHYSICIAN PROGRESS NOTE MEDICATIONS: Medication administration record reviewed. Medications include Tylenol, Mylanta, Catapres, Benadryl, Colace, Lovenox, Lamoure, Dilaudid, Toradol, Ativan, magnesium citrate, milk of magnesia, Narcan, Zofran, oxycodone, Protonix, Chloraseptic, Senokot, Restoril, vancomycin, and Ambien. LABORATORY DATA: Laboratory studies from yesterday, 12/23/2017 shows normal white count of 9, hematocrit 27, and platelets 329,000. Sodium 141, potassium 4.4, chloride 108, bicarb 31, BUN 19, creatinine 1.2, glucose 91, and calcium 8.4. PHYSICAL EXAMINATION: VITAL SIGNS: Afebrile, pulse 82, respirations 16, blood pressure 128/82, and oxygen saturation 100% on room air. I saw the patient at the bedside. I discussed the case in detail with the surgeon, Dr. Aurelio Gonzalez along with the hospitalist, Dr. Rosenberg. A PICC line was placed for possible long-term IV antibiotics. The patient was having arm phlebitis from his last two doses of IV vancomycin through the peripheral lines and intravenous lines. The PICC line should resolve any such issues. I examined the left antecubital PICC line site. The PICC line was placed only 2 hours ago. The site appeared soft and nontender with a clean and dry dressing. The patient did explain that his discussions with Dr. Gonzalez included requirements for the patient to emphasize knee extension to develop full range of motion. This may require continued use of pain medications. The patient and I discussed the usage of opioid narcotics. I have suggested to try to avoid the hydrocodone due to the Tylenol component. The patient will continue with the oxycodone instant release 15 mg tablets. The patient has not had side effects. He just had a bowel movement this morning, so the oxycodone has not caused an excessive constipation. I will continue the subcutaneous Dilaudid for severe breakthrough episodes. The patient remains on Lovenox for chemical anticoagulation. Infectious Disease and Dr. Gonzalez will discuss long-term antibiotic requirements. The patient is in good spirits. Dave Cruz M.D. DR: GUILLERMO JOB#: [id number] CC:
[2017-12-24 20:00] VITALS: BP 124/74
[2017-12-24] MEDS: Dyna-Hex 2% Top Sol 2oz TOPIC SCH (20:00)
[2017-12-24] MEDS: oxyCODONE 5mg IR tab ORAL PRN (20:27)
--- NOTE | 2017-12-24 21:29 | Cardiology Progress Note ---
Assessment/Plan Assessment/Plan cellulitis bellow the knee s/p knee surgey fludi collection bellow the kneed iv infiltration left forearm anemai communicated w ortho iv abx s/p surgical debridement of abscess not involving joint dvt ppx lmwh picc line placed got [facility] picc no reaction anemia wyu stool and iron studies spep d/w id will d/e ortho re dc planning Subjective Cardiovascular: Denies: chest pain, lightheadedness, palpitations Respiratory: Denies: shortness of breath Gastrointestinal/Abdominal: Denies: abdominal pain Genitourinary: Denies: burning Subjective walked some today Objective Last 24 Hour Vital Signs Date Time Temp Pulse Resp B/P (MAP) Pulse Ox O2 Delivery O2 Flow Rate FiO2 12/24/17 20:00 98.1 94 18 124/74 100 98.1 12/24/17 12:00 96.6 82 16 128/82 100 96.6 12/24/17 04:48 98.1 81 20 126/68 92 Room Air 98.1 12/24/17 00:03 98.1 104 20 106/60 96 Room Air 98.1 General Appearance: no apparent distress, alert Neck: supple Cardiovascular: normal rate, regular rhythm Respiratory/Chest: lungs clear, normal breath sounds Abdomen: normal bowel sounds, non tender, soft Extremities: normal range of motion, non-tender Intake and Output 12/23/17 12/24/17 19:00 07:00 Intake Total 1440 ml Balance 1440 ml Intake Oral 1440 ml # Voids 4 3 # Bowel Movements 1 Microbiology Date/Time Source Procedure Growth Status 12/22/17 16:00 Knee Right Gram Stain - Final Resulted 12/22/17 16:00 Knee Right Surgical Biopsy Culture - Preliminary NO GROWTH AFTER 24 HOURS Resulted 12/22/17 16:00 Knee Right Gram Stain - Final Resulted 12/22/17 16:00 Knee Right Aerobic Culture - Preliminary NO GROWTH AFTER 24 HOURS Resulted 12/22/17 16:00 Knee Right Anaerobic Culture Pending Resulted Eitan Rosenberg MD December 24, 2017 21:29
[2017-12-24] MEDS: Cefepime HCl 2 GM in D5W 55 ML IVPB SCH (21:52)
--- NOTE | 2017-12-24 22:10 | Infectious Diseases Prog Note ---
Assessment/Plan Assessment/Plan A) 1) right below knee/leg cellulitis/abscess, s/p debridement, ? osteo/deep infection, hx recent abx including keflex and bactrim - d/w Dr. 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 Rosenberg 6) picc line placed Subjective Constitutional: Denies: fever, fatigue HEENT: Denies: congestion Respiratory: Denies: shortness of breath Cardiovascular: Denies: chest pain Gastrointestinal/Abdominal: Denies: nausea, vomiting, diarrhea Genitourinary: Denies: dysuria Neurologic: Denies: headache Psychiatric: Reports: no symptoms; Denies: depression Skin: Denies: rash Musculoskeletal: Reports: pain - pain controlled right leg Allergies: Coded Allergies: No Known Allergies (Unverified , 08/25/17) Objective Vital Signs Last 24 Hour Vital Signs Date Time Temp Pulse Resp B/P (MAP) Pulse Ox O2 Delivery O2 Flow Rate FiO2 12/24/17 20:00 98.1 94 18 124/74 100 98.1 12/24/17 12:00 96.6 82 16 128/82 100 96.6 12/24/17 04:48 98.1 81 20 126/68 92 Room Air 98.1 12/24/17 00:03 98.1 104 20 106/60 96 Room Air 98.1 Height (Feet): 5 Height (Inches): 11.00 Weight (Pounds): 180 General Appearance: no acute distress HEENT: normocephalic, atraumatic, anicteric, mucous membranes moist Respiratory/Chest: lungs clear, normal breath sounds, no respiratory distress, no accessory muscle use Cardiovascular: normal rate, regular rhythm, no gallop/murmur, no JVD Abdomen: normal bowel sounds, soft, non tender, no organomegaly, non distended Genitourinary: other - no wang Extremities: no cyanosis Skin: no rash 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 Findings represent old hematoma versus abscess. Microbiology Date/Time Source Procedure Growth Status 12/22/17 16:00 Knee Right Gram Stain - Final Resulted 12/22/17 16:00 Knee Right Surgical Biopsy Culture - Preliminary NO GROWTH AFTER 24 HOURS Resulted 12/22/17 16:00 Knee Right Gram Stain - Final Resulted 12/22/17 16:00 Knee Right Aerobic Culture - Preliminary NO GROWTH AFTER 24 HOURS Resulted 12/22/17 16:00 Knee Right Anaerobic Culture Pending Resulted Labs Test 12/22/17 05:45 12/23/17 05:35 12/23/17 10:30 White Blood Count 11.1 K/UL (4.8-10.8) 10.3 K/UL (4.8-10.8) 9.4 K/UL (4.8-10.8) Red Blood Count 3.79 M/UL (4.70-6.10) 3.23 M/UL (4.70-6.10) 3.45 M/UL (4.70-6.10) Hemoglobin 9.3 G/DL (14.2-18.0) 8.0 G/DL (14.2-18.0) 8.3 G/DL (14.2-18.0) Hematocrit 29.5 % (42.0-52.0) 25.3 % (42.0-52.0) 27.0 % (42.0-52.0) Mean Corpuscular Volume 78 FL (80-99) 78 FL (80-99) 78 FL (80-99) Mean Corpuscular Hemoglobin 24.4 PG (27.0-31.0) 24.8 PG (27.0-31.0) 24.0 PG (27.0-31.0) Mean Corpuscular Hemoglobin Concent 31.4 G/DL (32.0-36.0) 31.7 G/DL (32.0-36.0) 30.6 G/DL (32.0-36.0) Red Cell Distribution Width 15.8 % (11.6-14.8) 16.0 % (11.6-14.8) 15.7 % (11.6-14.8) Platelet Count 353 K/UL (150-450) 309 K/UL (150-450) 329 K/UL (150-450) Mean Platelet Volume 6.3 FL (6.5-10.1) 6.1 FL (6.5-10.1) 6.0 FL (6.5-10.1) Neutrophils (%) (Auto) 80.8 % (45.0-75.0) 57.4 % (45.0-75.0) 59.5 % (45.0-75.0) Lymphocytes (%) (Auto) 12.0 % (20.0-45.0) 31.7 % (20.0-45.0) 29.2 % (20.0-45.0) Monocytes (%) (Auto) 7.2 % (1.0-10.0) 9.3 % (1.0-10.0) 9.3 % (1.0-10.0) Eosinophils (%) (Auto) 0.0 % (0.0-3.0) 0.8 % (0.0-3.0) 1.0 % (0.0-3.0) Basophils (%) (Auto) 0.1 % (0.0-2.0) 0.8 % (0.0-2.0) 0.9 % (0.0-2.0) Sodium Level 140 MMOL/L (136-145) 141 MMOL/L (136-145) Potassium Level 4.7 MMOL/L (3.5-5.1) 4.4 MMOL/L (3.5-5.1) Chloride Level 105 MMOL/L (98-107) 108 MMOL/L (98-107) Carbon Dioxide Level 27 MMOL/L (21-32) 31 MMOL/L (21-32) Anion Gap 8 mmol/L (5-15) 2 mmol/L (5-15) Blood Urea Nitrogen 22 mg/dL (7-18) 19 mg/dL (7-18) Creatinine 1.1 MG/DL (0.55-1.30) 1.2 MG/DL (0.55-1.30) Estimat Glomerular Filtration Rate > 60 mL/min (>60) > 60 mL/min (>60) Glucose Level 154 MG/DL (74-106) 91 MG/DL (74-106) Calcium Level 8.6 MG/DL (8.5-10.1) 8.4 MG/DL (8.5-10.1) Current Medications Medications (Trade) Dose Ordered Sig/Kwame Route PRN Reason Start Time Stop Time Status Last Admin Dose Admin Acetaminophen (Tylenol) 650 mg Q6H PRN ORAL Mild Pain/Temp > 100.5 12/18/17 21:29 01/17/18 21:28 Acetaminophen/ Hydrocodone Bitart (Page ) 2 tab Q4H PRN ORAL MILD BREAKTHROUGH PAIN 1-4 12/24/17 09:45 12/31/17 09:44 Al Hydroxide/Mg Hydroxide (Mylanta) 30 ml Q6H PRN ORAL GERD 12/21/17 08:00 01/20/18 07:59 Cefepime HCl 2 gm/ Dextrose 55 ml @ 110 mls/hr EVERY 12 HOURS IVPB 12/24/17 21:00 12/31/17 20:59 12/24/17 21:52 Chlorhexidine Gluconate (Carlyn-Hex 2%) 1 applic DAILY@2000 TOPIC 12/24/17 20:00 01/23/18 19:59 12/24/17 20:00 Clonidine HCl (Catapres Tab) 0.1 mg Q8H PRN ORAL For High Blood Pressure>160 12/21/17 08:00 01/20/18 07:59 Diphenhydramine HCl (Benadryl) 25 mg Q6H PRN ORAL Itching 12/21/17 08:00 01/20/18 07:59 12/23/17 10:19 Docusate Sodium (Colace) 100 mg TWICE A DAY NG 12/21/17 09:00 01/20/18 08:59 12/24/17 17:59 Enoxaparin Sodium (Lovenox) 40 mg DAILY SUBQ 12/22/17 09:00 01/05/18 08:59 12/22/17 09:29 Hydromorphone HCl (Dilaudid) 1.5 mg Q3H PRN SUBQ Severe Breakthru Pain (>7) 12/21/17 08:00 12/28/17 07:59 12/21/17 10:30 Lactated Ringer's 1,000 ml @ 50 mls/hr Q20H IV 12/23/17 10:00 01/22/18 09:59 Lactobacillus Acidophilus (Culturelle) 1 tab TWICE A DAY ORAL 12/20/17 18:00 01/19/18 17:59 12/24/17 17:59 Lidocaine HCl (Xylocaine 1% 30ml) 30 ml ONCE PRN INJ PICC PLACEMENT 12/23/17 15:45 12/25/17 15:44 Lorazepam (Ativan) 1 mg Q4H PRN ORAL Muscle Spasm 12/24/17 15:00 12/31/17 14:59 Magnesium Hydroxide (Mom) 30 ml DAILYPRN PRN ORAL Constipation 12/21/17 08:00 01/20/18 07:59 Magnesium Citrate (Citrate Of Magnesia) 300 ml Q12HR PRN ORAL constipation 12/21/17 08:00 01/20/18 07:59 Ondansetron HCl (Zofran) 4 mg Q8H PRN IVP Nausea & Vomiting 12/20/17 11:30 01/19/18 11:29 Oxycodone HCl (Roxicodone) 15 mg Q3H PRN ORAL Moderate Breakthru Pain (5-7) 12/21/17 08:00 12/28/17 07:59 12/24/17 20:27 Pantoprazole (Protonix) 40 mg BEDTIME ORAL 12/21/17 21:00 01/20/18 20:59 12/24/17 20:28 Phenol/Menthol (Chloraseptic) 1 spray Q3H PRN ORAL SORE THROAT 12/21/17 08:00 01/20/18 07:59 Sennosides (Senokot) 1 tab BID ORAL 12/21/17 09:00 01/20/18 08:59 12/24/17 17:59 Vancomycin HCl (Vanco rx to dose) 1 ea DAILY PRN MISC Per rx protocol 12/24/17 09:15 01/23/18 09:14 Vancomycin HCl/ Dextrose 250 ml @ 166.667 mls/hr Q12H IVPB 12/24/17 14:00 12/29/17 13:59 12/24/17 13:55 CALIN GRULLON December 24, 2017 22:10
[2017-12-25] VITALS: BP 123/81
[2017-12-25] MEDS: Vancomycin 1250mg/D5W 250ml IVPB SCH ×2 (01:15→13:59)
[2017-12-25] MEDS: LR 1000ml 1,000 ML IV SCH ×2 (02:02→22:16)
[2017-12-25 07:34] LABS: ALANINE AMINOTRANSFERASE 21 U/L (12-78); ALBUMIN 2.7 G/DL (3.4-5.0); ALBUMIN/GLOBULIN RATIO 0.8 (1.0-2.7); ALKALINE PHOSPHATASE 83 U/L (46-116); ANION GAP 6 mmol/L (5-15); BILIRUBIN,TOTAL 0.3 MG/DL (0.2-1.0); BLOOD UREA NITROGEN 19 mg/dL (7-18); CALCIUM 8.5 MG/DL (8.5-10.1); CARBON DIOXIDE 29 MMOL/L (21-32); CHLORIDE 104 MMOL/L (98-107); CREATININE 1.1 MG/DL (0.55-1.30); POTASSIUM 4.2 MMOL/L (3.5-5.1); SODIUM 139 MMOL/L (136-145)
--- NOTE | 2017-12-25 07:45 | Progress Note ---
DATE: 12/25/2017 ACUTE PAIN MANAGEMENT PHYSICIAN PROGRESS NOTE MEDICATIONS: Medication administration record reviewed. Medications include IV fluids, Colace, Protonix, Senokot, Lovenox, and antibiotics. P.r.n. medications include Tylenol, Zofran, Dilaudid, Chloraseptic spray, Catapres, Benadryl, Mylanta, oxycodone, magnesium citrate, milk of magnesia, Ozark, and Ativan. LABORATORY DATA: Laboratory studies from this morning are pending. OBJECTIVE: Vital signs are within normal limits. Afebrile, pulse 86, respirations 18, blood pressure 123/81, and oxygen saturation 100%. I saw the patient at the bedside. I discussed the case with the night nurse, along with the surgeon, Dr. Aurelio Gonzalez. The patient has been tolerating the oxycodone 15 mg tablets and has been receiving a good analgesic effect. He will continue to have subcutaneous Dilaudid available and I will discontinue the Ozark to reduce Tylenol usage. The patient remains on Lovenox for DVT prophylaxis. Ativan remains available for muscle spasms that the patient has not required such. There are multiple laxatives available although the patient did have a bowel movement yesterday already. The patient is on Protonix for GI ulcer prophylaxis. I will defer antibiotic treatment to Dr. López, who is recommending intravenous vancomycin and cefepime for a completion of 6 weeks treatment. Surgical consult so far has been negative. I will continue his current analgesic regimen at this time and defer discharge planning to the surgical team. Dave Cruz M.D. DR: GUILLERMO JOB#: [id number] CC:
[2017-12-25] MEDS: Docusate 100mg/10ml Liq NG SCH ×2 (08:01→17:59)
[2017-12-25] MEDS: oxyCODONE 5mg IR tab ORAL PRN ×2 (08:01→18:00)
[2017-12-25] MEDS: Sennosides 8.6mg ORAL SCH ×2 (08:01→18:00)
[2017-12-25] MEDS: Lactobacillus-GG tablet ORAL SCH ×2 (08:01→17:59)
[2017-12-25] MEDS: Enoxaparin 40mg Inj SUBQ SCH ×2 (08:04→14:00)
[2017-12-25 08:05] VITALS: BP 118/70
[2017-12-25 08:07] VITALS: BP 118/70
[2017-12-25 08:18] LABS: BASOPHILS % (AUTO) 0.7 % (0.0-2.0); EOSINOPHILS % (AUTO) 1.9 % (0.0-3.0); HEMATOCRIT 25.7 % (42.0-52.0); HEMOGLOBIN 8.1 G/DL (14.2-18.0); LYMPHOCYTES % (AUTO) 37.3 % (20.0-45.0); MEAN CORPUSCULAR VOLUME 77 FL (80-99); MONOCYTES % (AUTO) 9.1 % (1.0-10.0); NEUTROPHILS % (AUTO) 51.1 % (45.0-75.0); PLATELET COUNT 329 K/UL (150-450); RED BLOOD COUNT 3.34 M/UL (4.70-6.10); RED CELL DISTRIBUTION WIDTH 15.3 % (11.6-14.8); WHITE BLOOD COUNT 6.9 K/UL (4.8-10.8)
[2017-12-25 08:53] LABS: IRON 23 ug/dL (50-175)
[2017-12-25 09:03] LABS: ASPARTATE AMINO TRANSFERASE 21 U/L (15-37)
[2017-12-25] MEDS: Cefepime HCl 2 GM in D5W 55 ML IVPB SCH ×2 (10:29→20:19)
[2017-12-25 11:27] VITALS: BP 115/90
--- NOTE | 2017-12-25 14:01 | Infectious Diseases Prog Note ---
Assessment/Plan Assessment/Plan A) 1) right below knee/leg cellulitis/abscess, s/p debridement, ? osteo/deep infection, hx recent abx including keflex and bactrim - d/w Dr. 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 Rosenberg 6) picc line placed 7) d/w patient Subjective Constitutional: Denies: fever HEENT: Denies: congestion Respiratory: Denies: shortness of breath Cardiovascular: Denies: chest pain Gastrointestinal/Abdominal: Denies: nausea, vomiting, diarrhea Genitourinary: Denies: dysuria Neurologic: Denies: headache Psychiatric: Denies: depression Skin: Denies: rash Hematologic: Denies: bleeding Musculoskeletal: Denies: pain Allergies: Coded Allergies: No Known Allergies (Unverified , 08/25/17) Objective Vital Signs Last 24 Hour Vital Signs Date Time Temp Pulse Resp B/P (MAP) Pulse Ox O2 Delivery O2 Flow Rate FiO2 12/25/17 11:27 98.0 115 20 115/90 98 98.0 12/25/17 08:07 98.4 109 20 118/70 100 98.4 12/25/17 00:00 97.7 86 18 123/81 100 97.7 12/24/17 20:00 98.1 94 18 124/74 100 98.1 Height (Feet): 5 Height (Inches): 11.00 Weight (Pounds): 180 General Appearance: no acute distress HEENT: normocephalic, atraumatic, anicteric, mucous membranes moist Respiratory/Chest: lungs clear, normal breath sounds, no respiratory distress, no accessory muscle use Cardiovascular: normal rate, regular rhythm, no gallop/murmur, no JVD Abdomen: normal bowel sounds, soft, non tender, no organomegaly, non distended Genitourinary: other - no wang Extremities: no cyanosis Skin: no rash 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 Findings represent old hematoma versus abscess. Microbiology Date/Time Source Procedure Growth Status 12/22/17 16:00 Knee Right Gram Stain - Final Resulted 12/22/17 16:00 Surgical Biopsy Culture - Preliminary Staphylococcus Sp Coag Neg Resulted 12/22/17 16:00 Knee Right Gram Stain - Final Resulted 12/22/17 16:00 Knee Right Aerobic Culture - Preliminary Resulted 12/22/17 16:00 Knee Right Anaerobic Culture - Preliminary NO GROWTH AFTER 72 HOURS Resulted Laboratory Tests Test 12/25/17 06:40 White Blood Count 6.9 K/UL (4.8-10.8) Red Blood Count 3.34 M/UL (4.70-6.10) L Hemoglobin 8.1 G/DL (14.2-18.0) L Hematocrit 25.7 % (42.0-52.0) L Mean Corpuscular Volume 77 FL (80-99) L Mean Corpuscular Hemoglobin 24.3 PG (27.0-31.0) L Mean Corpuscular Hemoglobin Concent 31.6 G/DL (32.0-36.0) L Red Cell Distribution Width 15.3 % (11.6-14.8) H Platelet Count 329 K/UL (150-450) Mean Platelet Volume 5.8 FL (6.5-10.1) L Neutrophils (%) (Auto) 51.1 % (45.0-75.0) Lymphocytes (%) (Auto) 37.3 % (20.0-45.0) Monocytes (%) (Auto) 9.1 % (1.0-10.0) Eosinophils (%) (Auto) 1.9 % (0.0-3.0) Basophils (%) (Auto) 0.7 % (0.0-2.0) Reticulocyte Count 1.8 % (0.0-2.0) Sodium Level 139 MMOL/L (136-145) Potassium Level 4.2 MMOL/L (3.5-5.1) Chloride Level 104 MMOL/L (98-107) Carbon Dioxide Level 29 MMOL/L (21-32) Anion Gap 6 mmol/L (5-15) Blood Urea Nitrogen 19 mg/dL (7-18) H Creatinine 1.1 MG/DL (0.55-1.30) Estimat Glomerular Filtration Rate > 60 mL/min (>60) Glucose Level 105 MG/DL (74-106) Calcium Level 8.5 MG/DL (8.5-10.1) Magnesium Level 1.8 MG/DL (1.8-2.4) Iron Level 23 ug/dL (50-175) L Total Bilirubin 0.3 MG/DL (0.2-1.0) Aspartate Amino Transf (AST/SGOT) 21 U/L (15-37) Alanine Aminotransferase (ALT/SGPT) 21 U/L (12-78) Alkaline Phosphatase 83 U/L (46-116) Lactate Dehydrogenase 163 U/L (81-234) Total Protein 6.3 G/DL (6.4-8.2) L Total Protein (PEP) Pending Albumin 2.7 G/DL (3.4-5.0) L Albumin (PEP) Pending Globulin 3.6 g/dL Globulin (PEP) Pending Albumin/Globulin Ratio 0.8 (1.0-2.7) L [id number] Pending Jinir-8-Qnxllplcu Pending Beta Globulins Pending Beta Gamma Globulin Pending PEP Abnormal Protein Bands Pending Protein Electrophoresis Interpret Pending Thyroid Stimulating Hormone (TSH) 2.526 uiU/mL (0.358-3.740) Current Medications Medications (Trade) Dose Ordered Sig/Kwame Route PRN Reason Start Time Stop Time Status Last Admin Dose Admin Acetaminophen (Tylenol) 650 mg Q6H PRN ORAL Mild Pain/Temp > 100.5 12/18/17 21:29 01/17/18 21:28 Al Hydroxide/Mg Hydroxide (Mylanta) 30 ml Q6H PRN ORAL GERD 12/21/17 08:00 01/20/18 07:59 Cefepime HCl 2 gm/ Dextrose 55 ml @ 110 mls/hr EVERY 12 HOURS IVPB 12/24/17 21:00 12/31/17 20:59 12/25/17 10:29 Chlorhexidine Gluconate (Carlyn-Hex 2%) 1 applic DAILY@2000 TOPIC 12/24/17 20:00 01/23/18 19:59 12/24/17 20:00 Clonidine HCl (Catapres Tab) 0.1 mg Q8H PRN ORAL For High Blood Pressure>160 12/21/17 08:00 01/20/18 07:59 Diphenhydramine HCl (Benadryl) 25 mg Q6H PRN ORAL Itching 12/21/17 08:00 01/20/18 07:59 12/23/17 10:19 Docusate Sodium (Colace) 100 mg TWICE A DAY NG 12/21/17 09:00 01/20/18 08:59 12/25/17 08:01 Enoxaparin Sodium (Lovenox) 40 mg DAILY SUBQ 12/22/17 09:00 01/05/18 08:59 12/22/17 09:29 Hydromorphone HCl (Dilaudid) 1.5 mg Q3H PRN SUBQ Severe Breakthru Pain (>7) 12/21/17 08:00 12/28/17 07:59 12/21/17 10:30 Lactated Ringer's 1,000 ml @ 50 mls/hr Q20H IV 12/23/17 10:00 01/22/18 09:59 12/25/17 02:02 Lactobacillus Acidophilus (Culturelle) 1 tab TWICE A DAY ORAL 12/20/17 18:00 01/19/18 17:59 12/25/17 08:01 Lidocaine HCl (Xylocaine 1% 30ml) 30 ml ONCE PRN INJ PICC PLACEMENT 12/23/17 15:45 12/25/17 15:44 Lorazepam (Ativan) 1 mg Q4H PRN ORAL Muscle Spasm 12/24/17 15:00 12/31/17 14:59 Magnesium Hydroxide (Mom) 30 ml DAILYPRN PRN ORAL Constipation 12/21/17 08:00 01/20/18 07:59 Magnesium Citrate (Citrate Of Magnesia) 300 ml Q12HR PRN ORAL constipation 12/21/17 08:00 01/20/18 07:59 Ondansetron HCl (Zofran) 4 mg Q8H PRN IVP Nausea & Vomiting 12/20/17 11:30 01/19/18 11:29 Oxycodone HCl (Roxicodone) 15 mg Q3H PRN ORAL Moderate Breakthru Pain (5-7) 12/21/17 08:00 12/28/17 07:59 12/25/17 08:01 Pantoprazole (Protonix) 40 mg BEDTIME ORAL 12/21/17 21:00 01/20/18 20:59 12/24/17 20:28 Phenol/Menthol (Chloraseptic) 1 spray Q3H PRN ORAL SORE THROAT 12/21/17 08:00 01/20/18 07:59 Sennosides (Senokot) 1 tab BID ORAL 12/21/17 09:00 01/20/18 08:59 12/25/17 08:01 Vancomycin HCl (Vanco rx to dose) 1 ea DAILY PRN MISC Per rx protocol 12/24/17 09:15 01/23/18 09:14 Vancomycin HCl/ Dextrose 250 ml @ 166.667 mls/hr Q12H IVPB 12/24/17 14:00 12/29/17 13:59 12/25/17 01:15 CALIN GRULLON December 25, 2017 14:01
[2017-12-25 15:44] VITALS: BP 132/92
[2017-12-25 20:00] VITALS: BP 103/77
[2017-12-25] MEDS: Dyna-Hex 2% Top Sol 2oz TOPIC SCH (20:19)
--- NOTE | 2017-12-25 21:16 | Cardiology Progress Note ---
Assessment/Plan Assessment/Plan cellulitis bellow the knee s/p knee surgey fludi collection bellow the kneed iv infiltration left forearm anemai appera chornic with an acute componeent iron def iv abx s/p surgical debridement of abscess not involving joint dvt ppx lmwh picc line placed got [facility] picc no reaction anemia bocanegra stool and iron studies spep strt iv iron has seen gi before will rachel need egd colosncopy to find source of anemia once dcd he understand and is agreeable to seeign gi as outpt Subjective Subjective walked some today Objective Last 24 Hour Vital Signs Date Time Temp Pulse Resp B/P (MAP) Pulse Ox O2 Delivery O2 Flow Rate FiO2 12/25/17 20:00 98.2 113 18 103/77 93 98.2 12/25/17 15:44 98.6 104 20 132/92 100 98.6 12/25/17 11:27 98.0 115 20 115/90 98 98.0 12/25/17 08:07 98.4 109 20 118/70 100 98.4 12/25/17 00:00 97.7 86 18 123/81 100 97.7 General Appearance: no apparent distress, alert Cardiovascular: normal rate, regular rhythm Respiratory/Chest: lungs clear, normal breath sounds Abdomen: non tender, soft Extremities: no swelling Intake and Output 12/24/17 12/25/17 19:00 07:00 Intake Total 1000 ml 610 ml Balance 1000 ml 610 ml Intake Oral 1000 ml 410 ml IV Total 200 ml # Voids 2 2 Laboratory Tests Test 12/25/17 06:40 White Blood Count 6.9 K/UL (4.8-10.8) Red Blood Count 3.34 M/UL (4.70-6.10) L Hemoglobin 8.1 G/DL (14.2-18.0) L Hematocrit 25.7 % (42.0-52.0) L Mean Corpuscular Volume 77 FL (80-99) L Mean Corpuscular Hemoglobin 24.3 PG (27.0-31.0) L Mean Corpuscular Hemoglobin Concent 31.6 G/DL (32.0-36.0) L Red Cell Distribution Width 15.3 % (11.6-14.8) H Platelet Count 329 K/UL (150-450) Mean Platelet Volume 5.8 FL (6.5-10.1) L Neutrophils (%) (Auto) 51.1 % (45.0-75.0) Lymphocytes (%) (Auto) 37.3 % (20.0-45.0) Monocytes (%) (Auto) 9.1 % (1.0-10.0) Eosinophils (%) (Auto) 1.9 % (0.0-3.0) Basophils (%) (Auto) 0.7 % (0.0-2.0) Reticulocyte Count 1.8 % (0.0-2.0) Sodium Level 139 MMOL/L (136-145) Potassium Level 4.2 MMOL/L (3.5-5.1) Chloride Level 104 MMOL/L (98-107) Carbon Dioxide Level 29 MMOL/L (21-32) Anion Gap 6 mmol/L (5-15) Blood Urea Nitrogen 19 mg/dL (7-18) H Creatinine 1.1 MG/DL (0.55-1.30) Estimat Glomerular Filtration Rate > 60 mL/min (>60) Glucose Level 105 MG/DL (74-106) Calcium Level 8.5 MG/DL (8.5-10.1) Magnesium Level 1.8 MG/DL (1.8-2.4) Iron Level 23 ug/dL (50-175) L Total Bilirubin 0.3 MG/DL (0.2-1.0) Aspartate Amino Transf (AST/SGOT) 21 U/L (15-37) Alanine Aminotransferase (ALT/SGPT) 21 U/L (12-78) Alkaline Phosphatase 83 U/L (46-116) Lactate Dehydrogenase 163 U/L (81-234) Total Protein 6.3 G/DL (6.4-8.2) L Total Protein (PEP) Pending Albumin 2.7 G/DL (3.4-5.0) L Albumin (PEP) Pending Globulin 3.6 g/dL Globulin (PEP) Pending Albumin/Globulin Ratio 0.8 (1.0-2.7) L Zufyt-1-[id number] Pending Ztgta-7-Dyglbycpe Pending Beta Globulins Pending Beta Gamma Globulin Pending PEP Abnormal Protein Bands Pending Protein Electrophoresis Interpret Pending Thyroid Stimulating Hormone (TSH) 2.526 uiU/mL (0.358-3.740) Eitan Rosenberg MD December 25, 2017 21:15
[2017-12-25] MEDS: Iron Sucrose 100 MG in NS 55 ML IV SCH (22:16)
[2017-12-26] VITALS (7 sets, daily range): BP systolic 110–138; BP diastolic 74–84
[2017-12-26] MEDS: Vancomycin 1250mg/D5W 250ml IVPB SCH ×2 (01:55→13:39)
[2017-12-26] MEDS: Cefepime HCl 2 GM in D5W 55 ML IVPB SCH ×2 (09:57→20:47)
[2017-12-26] MEDS: Lactobacillus-GG tablet ORAL SCH ×2 (09:58→17:18)
[2017-12-26] MEDS: Sennosides 8.6mg ORAL SCH ×2 (09:58→17:18)
[2017-12-26] MEDS: Docusate 100mg/10ml Liq NG SCH ×3 (09:58→17:19)
[2017-12-26] MEDS: Enoxaparin 40mg Inj SUBQ SCH (10:00)
--- NOTE | 2017-12-26 11:58 | Infectious Diseases Prog Note ---
Assessment/Plan Assessment/Plan A) 1) right below knee/leg cellulitis/abscess, s/p debridement, ? osteo/deep infection, hx recent abx including keflex and bactrim - d/w Dr. 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 contaminant 2) hx right knee surgery, pmh o/w negative 3) allergies negative 4) sh - negative, fh-nc, allergies - negative, mar noted, notes and records reviewed 5) d/w RN P) 1) vancomycin and cefepime x 37 days more for 6 weeks abx post-operatively 2) surgical culture with coag neg staph, ? contaminant, patient on abx prior to surgery 3) check labs, bc negative 4) continue with primary and ortho teams 5) d/w Dr. Rosenberg 6) picc line placed 7) d/w patient Subjective Constitutional: Denies: fever HEENT: Denies: congestion Respiratory: Denies: shortness of breath Cardiovascular: Denies: chest pain Gastrointestinal/Abdominal: Denies: nausea, vomiting, diarrhea Genitourinary: Denies: dysuria, hematuria, frequency Neurologic: Denies: headache Psychiatric: Reports: no symptoms; Denies: depression Skin: Denies: rash Hematologic: Denies: bleeding Musculoskeletal: Reports: pain - some right knee pain Allergies: Coded Allergies: No Known Allergies (Unverified , 08/25/17) Objective Vital Signs Last 24 Hour Vital Signs Date Time Temp Pulse Resp B/P (MAP) Pulse Ox O2 Delivery O2 Flow Rate FiO2 12/26/17 08:00 97.9 103 18 121/74 100 97.9 12/26/17 04:00 97.8 86 18 119/76 94 97.8 12/26/17 00:00 98.1 93 18 110/76 93 98.1 12/25/17 20:00 98.2 113 18 103/77 93 98.2 12/25/17 15:44 98.6 104 20 132/92 100 98.6 Height (Feet): 5 Height (Inches): 11.00 Weight (Pounds): 180 General Appearance: no acute distress HEENT: normocephalic, atraumatic, anicteric, mucous membranes moist Respiratory/Chest: lungs clear, normal breath sounds, no respiratory distress, no accessory muscle use Cardiovascular: normal rate, regular rhythm, no gallop/murmur, no JVD Abdomen: normal bowel sounds, soft, non tender, no organomegaly, non distended Genitourinary: other - no wang Extremities: no cyanosis, other - some right knee pain, rom okay, wound covered Skin: no rash 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 Findings represent old hematoma versus abscess. Microbiology Date/Time Source Procedure Growth Status 12/19/17 00:45 Blood Blood Culture - Final NO GROWTH AFTER 5 DAYS Complete 12/19/17 10:45 Urine,Clean Catch Urine Culture - Final NO GROWTH AFTER 48 HOURS Complete 12/22/17 16:00 Knee Right Gram Stain - Final Complete 12/22/17 16:00 Surgical Biopsy Culture - Final Staphylococcus Sp Coag Neg Complete Labs Test 12/25/17 06:40 12/26/17 01:00 12/26/17 07:55 White Blood Count 6.9 K/UL (4.8-10.8) Red Blood Count 3.34 M/UL (4.70-6.10) Hemoglobin 8.1 G/DL (14.2-18.0) Hematocrit 25.7 % (42.0-52.0) Mean Corpuscular Volume 77 FL (80-99) Mean Corpuscular Hemoglobin 24.3 PG (27.0-31.0) Mean Corpuscular Hemoglobin Concent 31.6 G/DL (32.0-36.0) Red Cell Distribution Width 15.3 % (11.6-14.8) Platelet Count 329 K/UL (150-450) Mean Platelet Volume 5.8 FL (6.5-10.1) Neutrophils (%) (Auto) 51.1 % (45.0-75.0) Lymphocytes (%) (Auto) 37.3 % (20.0-45.0) Monocytes (%) (Auto) 9.1 % (1.0-10.0) Eosinophils (%) (Auto) 1.9 % (0.0-3.0) Basophils (%) (Auto) 0.7 % (0.0-2.0) Reticulocyte Count 1.8 % (0.0-2.0) Sodium Level 139 MMOL/L (136-145) Potassium Level 4.2 MMOL/L (3.5-5.1) Chloride Level 104 MMOL/L (98-107) Carbon Dioxide Level 29 MMOL/L (21-32) Anion Gap 6 mmol/L (5-15) Blood Urea Nitrogen 19 mg/dL (7-18) Creatinine 1.1 MG/DL (0.55-1.30) Estimat Glomerular Filtration Rate > 60 mL/min (>60) Glucose Level 105 MG/DL (74-106) Calcium Level 8.5 MG/DL (8.5-10.1) Magnesium Level 1.8 MG/DL (1.8-2.4) Iron Level 23 ug/dL (50-175) Total Bilirubin 0.3 MG/DL (0.2-1.0) Aspartate Amino Transf (AST/SGOT) 21 U/L (15-37) Alanine Aminotransferase (ALT/SGPT) 21 U/L (12-78) Alkaline Phosphatase 83 U/L (46-116) Lactate Dehydrogenase 163 U/L (81-234) Total Protein 6.3 G/DL (6.4-8.2) Albumin 2.7 G/DL (3.4-5.0) Globulin 3.6 g/dL Albumin/Globulin Ratio 0.8 (1.0-2.7) Thyroid Stimulating Hormone (TSH) 2.526 uiU/mL (0.358-3.740) Vancomycin Level Trough 10.4 ug/mL (5.0-12.0) Stool Occult Blood Negative (NEGATIVE) Laboratory Tests Test 12/26/17 01:00 12/26/17 07:55 Vancomycin Level Trough 10.4 ug/mL (5.0-12.0) Stool Occult Blood Negative (NEGATIVE) Current Medications Medications (Trade) Dose Ordered Sig/Kwame Route PRN Reason Start Time Stop Time Status Last Admin Dose Admin Acetaminophen (Tylenol) 650 mg Q6H PRN ORAL Mild Pain/Temp > 100.5 12/18/17 21:29 01/17/18 21:28 Al Hydroxide/Mg Hydroxide (Mylanta) 30 ml Q6H PRN ORAL GERD 12/21/17 08:00 01/20/18 07:59 Cefepime HCl 2 gm/ Dextrose 55 ml @ 110 mls/hr EVERY 12 HOURS IVPB 12/24/17 21:00 12/31/17 20:59 12/26/17 09:57 Chlorhexidine Gluconate (Carlyn-Hex 2%) 1 applic DAILY@2000 TOPIC 12/24/17 20:00 01/23/18 19:59 12/25/17 20:19 Clonidine HCl (Catapres Tab) 0.1 mg Q8H PRN ORAL For High Blood Pressure>160 12/21/17 08:00 01/20/18 07:59 Diphenhydramine HCl (Benadryl) 25 mg Q6H PRN ORAL Itching 12/21/17 08:00 01/20/18 07:59 12/23/17 10:19 Docusate Sodium (Colace) 100 mg TWICE A DAY NG 12/21/17 09:00 01/20/18 08:59 12/26/17 09:58 Enoxaparin Sodium (Lovenox) 40 mg DAILY SUBQ 12/22/17 09:00 01/05/18 08:59 12/26/17 10:00 Hydromorphone HCl (Dilaudid) 1.5 mg Q3H PRN SUBQ Severe Breakthru Pain (>7) 12/21/17 08:00 12/28/17 07:59 12/21/17 10:30 Iron Sucrose 100 mg/Sodium Chloride 60 ml @ 240 mls/hr BEDTIME IV 12/25/17 22:00 12/29/17 21:14 12/25/17 22:16 Lactobacillus Acidophilus (Culturelle) 1 tab TWICE A DAY ORAL 12/20/17 18:00 01/19/18 17:59 12/26/17 09:58 Lorazepam (Ativan) 1 mg Q4H PRN ORAL Muscle Spasm 12/24/17 15:00 12/31/17 14:59 Magnesium Hydroxide (Mom) 30 ml DAILYPRN PRN ORAL Constipation 12/21/17 08:00 01/20/18 07:59 Magnesium Citrate (Citrate Of Magnesia) 300 ml Q12HR PRN ORAL constipation 12/21/17 08:00 01/20/18 07:59 Ondansetron HCl (Zofran) 4 mg Q8H PRN IVP Nausea & Vomiting 12/20/17 11:30 01/19/18 11:29 Oxycodone HCl (Roxicodone) 15 mg Q3H PRN ORAL Moderate Breakthru Pain (5-7) 12/26/17 08:00 01/02/18 07:59 Pantoprazole (Protonix) 40 mg BEDTIME ORAL 12/21/17 21:00 01/20/18 20:59 12/25/17 20:19 Phenol/Menthol (Chloraseptic) 1 spray Q3H PRN ORAL SORE THROAT 12/21/17 08:00 01/20/18 07:59 Sennosides (Senokot) 1 tab BID ORAL 12/21/17 09:00 01/20/18 08:59 12/26/17 09:58 Vancomycin HCl (Vanco rx to dose) 1 ea DAILY PRN MISC Per rx protocol 12/24/17 09:15 01/23/18 09:14 Vancomycin HCl/ Dextrose 250 ml @ 166.667 mls/hr Q12H IVPB 12/24/17 14:00 12/29/17 13:59 12/26/17 01:55 CALIN GRULLON December 26, 2017 11:58
--- NOTE | 2017-12-26 13:01 | Progress Note ---
DATE: 12/26/2017 ACUTE PAIN MANAGEMENT PHYSICIAN PROGRESS NOTE MEDICATIONS: Medication administration record reviewed. Medications include IV fluids, antibiotics, Colace, Protonix, iron, Senokot, Lovenox. P.r.n. medications include Tylenol, Zofran, Dilaudid, Chloraseptic, Catapres, Benadryl, Mylanta, oxycodone, magnesium citrate, milk of magnesia, and Ativan. LABORATORY STUDIES: From 12/25/2017 shows white count 7, hematocrit 26, platelets 329,000. Sodium 139, potassium 4.2, chloride 104, bicarb 29, BUN 19, and creatinine 1.1. Glucose 105. Vancomycin trough from earlier this morning was 10.4. OBJECTIVE: VITAL SIGNS: Within normal limits. Afebrile, pulse 93, respirations 18, blood pressure 110/76, and oxygen saturation 93% on room air. I saw the patient at the bedside. I discussed the case with the nurse RN, Mateus. The patient has been able to sleep comfortably. He ambulates in and out of bed to the restroom when needed. Dr. Rosenberg has ordered stool sampling for occult blood. The patient denies any shortness of breath or chest pain. The vancomycin trough was reported as above. The PICC line site appears clean and dry and is functioning well for his intravenous antibiotics. Pain is well controlled on his current analgesic regimen. The patient is primarily using the oral oxycodone. I did leave a prescription for his to fill for Percocet for outpatient usage. I will renew the subcutaneous Dilaudid and the oxycodone. The patient does have Ativan available but has not needed it recently. Dave Cruz M.D. DR: ARNAUD JOB#: [id number] CC:
[2017-12-26] MEDS: oxyCODONE 5mg IR tab ORAL PRN ×2 (13:40→20:48)
--- NOTE | 2017-12-26 17:31 | General Progress Note ---
Progress Note Progress Note doing well cultuyre coag neg staph plan iv anbs 6 weeks will followin clinic cont rx Aurelio Gonzalez MD December 26, 2017 17:31
--- NOTE | 2017-12-26 19:22 | Cardiology Progress Note ---
Assessment/Plan Assessment/Plan cellulitis bellow the knee s/p knee surgey fludi collection bellow the kneed iv infiltration left forearm anemai appera chornic with an acute componeent iron def iv abx s/p surgical debridement of abscess not involving joint dvt ppx lmwh picc line placed got [facility] picc no reaction anemia bocanegra stool and iron studies spep strt iv iron has seen gi before will likey need egd colosncopy to find source of anemia once dcd he understand and is agreeable to seeign gi as outpt stool one time guaiac neg dc orders cancelled as s/w felt not able to get home health needs arranged until friday Subjective Cardiovascular: Denies: lightheadedness Respiratory: Denies: shortness of breath Gastrointestinal/Abdominal: Denies: abdominal pain Genitourinary: Denies: burning Subjective walked some today Objective Last 24 Hour Vital Signs Date Time Temp Pulse Resp B/P (MAP) Pulse Ox O2 Delivery O2 Flow Rate FiO2 12/26/17 15:42 98.1 97 18 129/74 100 98.1 12/26/17 12:00 98.1 91 18 124/84 100 98.1 12/26/17 08:00 97.9 103 18 121/74 100 97.9 12/26/17 04:00 97.8 86 18 119/76 94 97.8 12/26/17 00:00 98.1 93 18 110/76 93 98.1 12/25/17 20:00 98.2 113 18 103/77 93 98.2 General Appearance: alert Neck: supple Cardiovascular: normal rate, regular rhythm Respiratory/Chest: lungs clear, normal breath sounds Abdomen: normal bowel sounds Extremities: no swelling Intake and Output 12/25/17 12/26/17 19:00 07:00 Intake Total 1370 ml 660 ml Balance 1370 ml 660 ml Intake Oral 1370 ml 360 ml IV Total 300 ml # Voids 5 2 Laboratory Tests Test 12/26/17 01:00 12/26/17 07:55 Vancomycin Level Trough 10.4 ug/mL (5.0-12.0) Stool Occult Blood Negative (NEGATIVE) Eitan Rosenberg MD December 26, 2017 19:22
[2017-12-26] MEDS: Dyna-Hex 2% Top Sol 2oz TOPIC SCH (20:03)
[2017-12-26] MEDS: Iron Sucrose 100 MG in NS 55 ML IV SCH (20:03)
[2017-12-27] MEDS: Vancomycin 1250mg/D5W 250ml IVPB SCH ×2 (02:02→13:37)
[2017-12-27 03:42] VITALS: BP 150/68
[2017-12-27 06:34] LABS: BASOPHILS % (AUTO) 0.7 % (0.0-2.0); HEMATOCRIT 26.2 % (42.0-52.0); HEMOGLOBIN 8.1 G/DL (14.2-18.0); LYMPHOCYTES % (AUTO) 39.4 % (20.0-45.0); MEAN CORPUSCULAR VOLUME 78 FL (80-99); MONOCYTES % (AUTO) 11.7 % (1.0-10.0); NEUTROPHILS % (AUTO) 46.2 % (45.0-75.0); PLATELET COUNT 337 K/UL (150-450); RED BLOOD COUNT 3.36 M/UL (4.70-6.10); RED CELL DISTRIBUTION WIDTH 15.6 % (11.6-14.8); WHITE BLOOD COUNT 8.1 K/UL (4.8-10.8)
[2017-12-27 07:03] LABS: ANION GAP 6 mmol/L (5-15); BLOOD UREA NITROGEN 14 mg/dL (7-18); CALCIUM 8.5 MG/DL (8.5-10.1); CARBON DIOXIDE 27 MMOL/L (21-32); CHLORIDE 106 MMOL/L (98-107); CREATININE 0.9 MG/DL (0.55-1.30); POTASSIUM 4.1 MMOL/L (3.5-5.1); SODIUM 139 MMOL/L (136-145)
[2017-12-27] MEDS: Docusate 100mg/10ml Liq NG SCH ×3 (08:30→17:16)
[2017-12-27] MEDS: Lactobacillus-GG tablet ORAL SCH ×2 (08:30→17:15)
[2017-12-27] MEDS: Sennosides 8.6mg ORAL SCH ×2 (08:30→17:15)
[2017-12-27] MEDS: Enoxaparin 40mg Inj SUBQ SCH (08:31)
[2017-12-27] MEDS: Cefepime HCl 2 GM in D5W 55 ML IVPB SCH ×2 (08:56→21:27)
--- NOTE | 2017-12-27 09:13 | General Progress Note ---
Progress Note Progress Note doing better knee cloud range of motion staright id doing abs contimue therapy Aurelio Gonzalez MD December 27, 2017 09:12
[2017-12-27] MEDS ORDERED: Ketorolac 30mg Inj IV ONE (10:00)
[2017-12-27 12:00] VITALS: BP 150/68
[2017-12-27 15:56] VITALS: BP 132/81
--- NOTE | 2017-12-27 16:01 | Infectious Diseases Prog Note ---
Assessment/Plan Assessment/Plan A) 1) right below knee/leg cellulitis/abscess, s/p debridement, ? osteo/deep infection, hx recent abx including keflex and bactrim - d/w Dr. 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 termination clerk abx but doesn't think prosthesis compromised - surgical culture with coagulase negative staph, ? contaminant 2) hx right knee surgery, pmh o/w negative 3) allergies negative 4) sh - negative, fh-nc, allergies - negative, mar noted, notes and records reviewed 5) d/w RN P) 1) vancomycin and cefepime - day # 6 abx post-op, plan on 6 weeks tx post-op abx but may shorten course depending on clinical response, will need at least 2- 3 iv abx 2) surgical culture with coag neg staph, ? contaminant, patient on abx prior to surgery 3) check labs, bc negative 4) continue with primary and ortho teams 5) picc line in place Subjective Constitutional: Denies: fever HEENT: Denies: congestion Respiratory: Denies: shortness of breath Breasts: Denies: discharge Cardiovascular: Denies: chest pain Gastrointestinal/Abdominal: Denies: nausea, vomiting, diarrhea Genitourinary: Denies: dysuria, hematuria Neurologic: Denies: headache Psychiatric: Denies: depression Skin: Denies: rash Hematologic: Denies: bleeding Musculoskeletal: Reports: pain - right knee pain better Allergies: Coded Allergies: No Known Allergies (Unverified , 08/25/17) Objective Vital Signs Last 24 Hour Vital Signs Date Time Temp Pulse Resp B/P (MAP) Pulse Ox O2 Delivery O2 Flow Rate FiO2 12/27/17 12:00 97.1 97 18 150/68 96 Room Air 97.1 12/27/17 09:54 97.1 12/27/17 03:42 97.1 97 18 150/68 96 Room Air 97.1 12/26/17 23:58 98.2 94 18 138/79 97 Room Air 3.0 98.2 12/26/17 20:00 97.9 99 18 135/84 100 Room Air 97.9 Height (Feet): 5 Height (Inches): 11.00 Weight (Pounds): 180 General Appearance: no acute distress HEENT: normocephalic, atraumatic, anicteric, mucous membranes moist Respiratory/Chest: lungs clear, normal breath sounds, no respiratory distress, no accessory muscle use Cardiovascular: normal rate, regular rhythm, no gallop/murmur, no JVD Abdomen: normal bowel sounds, soft, non tender, no organomegaly, non distended Genitourinary: other - no wang Extremities: no cyanosis Skin: no rash Neurologic/Psychiatric: doweler II-XII grossly normal, alert, responsive Lymphatic: no neck adenopathy Musculoskeletal: no effusion Objective US right knee: IMPRESSION: Complex nonvascular fluid collection noted within the soft tissues about the right knee measuring 3.0 x 3.3 cm. Findings represent old hematoma versus abscess. Microbiology Date/Time Source Procedure Growth Status 12/19/17 00:45 Blood Blood Culture - Final NO GROWTH AFTER 5 DAYS Complete 12/19/17 10:45 Urine,Clean Catch Urine Culture - Final NO GROWTH AFTER 48 HOURS Complete 12/22/17 16:00 Knee Right Gram Stain - Final Complete 12/22/17 16:00 Surgical Biopsy Culture - Final Staphylococcus Sp Coag Neg Complete Laboratory Tests Test 12/27/17 06:00 White Blood Count 8.1 K/UL (4.8-10.8) Red Blood Count 3.36 M/UL (4.70-6.10) L Hemoglobin 8.1 G/DL (14.2-18.0) L Hematocrit 26.2 % (42.0-52.0) L Mean Corpuscular Volume 78 FL (80-99) L Mean Corpuscular Hemoglobin 24.0 PG (27.0-31.0) L Mean Corpuscular Hemoglobin Concent 30.8 G/DL (32.0-36.0) L Red Cell Distribution Width 15.6 % (11.6-14.8) H Platelet Count 337 K/UL (150-450) Mean Platelet Volume 5.5 FL (6.5-10.1) L Neutrophils (%) (Auto) 46.2 % (45.0-75.0) Lymphocytes (%) (Auto) 39.4 % (20.0-45.0) Monocytes (%) (Auto) 11.7 % (1.0-10.0) H Eosinophils (%) (Auto) 2.0 % (0.0-3.0) Basophils (%) (Auto) 0.7 % (0.0-2.0) Sodium Level 139 MMOL/L (136-145) Potassium Level 4.1 MMOL/L (3.5-5.1) Chloride Level 106 MMOL/L (98-107) Carbon Dioxide Level 27 MMOL/L (21-32) Anion Gap 6 mmol/L (5-15) Blood Urea Nitrogen 14 mg/dL (7-18) Creatinine 0.9 MG/DL (0.55-1.30) Estimat Glomerular Filtration Rate > 60 mL/min (>60) Glucose Level 102 MG/DL (74-106) Calcium Level 8.5 MG/DL (8.5-10.1) Current Medications Medications (Trade) Dose Ordered Sig/Kwame Route PRN Reason Start Time Stop Time Status Last Admin Dose Admin Acetaminophen (Tylenol) 650 mg Q6H PRN ORAL Mild Pain/Temp > 100.5 12/18/17 21:29 01/17/18 21:28 Al Hydroxide/Mg Hydroxide (Mylanta) 30 ml Q6H PRN ORAL GERD 12/21/17 08:00 01/20/18 07:59 Cefepime HCl 2 gm/ Dextrose 55 ml @ 110 mls/hr EVERY 12 HOURS IVPB 12/24/17 21:00 12/31/17 20:59 12/27/17 08:56 Chlorhexidine Gluconate (Carlyn-Hex 2%) 1 applic DAILY@2000 TOPIC 12/24/17 20:00 01/23/18 19:59 12/26/17 20:03 Clonidine HCl (Catapres Tab) 0.1 mg Q8H PRN ORAL For High Blood Pressure>160 12/21/17 08:00 01/20/18 07:59 Diphenhydramine HCl (Benadryl) 25 mg Q6H PRN ORAL Itching 12/21/17 08:00 01/20/18 07:59 12/23/17 10:19 Docusate Sodium (Colace) 100 mg TWICE A DAY NG 12/21/17 09:00 01/20/18 08:59 12/26/17 09:58 Hydromorphone HCl (Dilaudid) 1.5 mg Q3H PRN SUBQ Severe Breakthru Pain (>7) 12/21/17 08:00 12/28/17 07:59 12/21/17 10:30 Iron Sucrose 100 mg/Sodium Chloride 60 ml @ 240 mls/hr BEDTIME IV 12/25/17 22:00 12/29/17 21:14 12/26/17 20:03 Lactobacillus Acidophilus (Culturelle) 1 tab TWICE A DAY ORAL 12/20/17 18:00 01/19/18 17:59 12/27/17 08:30 Lorazepam (Ativan) 1 mg Q4H PRN ORAL Muscle Spasm 12/24/17 15:00 12/31/17 14:59 Magnesium Hydroxide (Mom) 30 ml DAILYPRN PRN ORAL Constipation 12/21/17 08:00 01/20/18 07:59 Magnesium Citrate (Citrate Of Magnesia) 300 ml Q12HR PRN ORAL constipation 12/21/17 08:00 01/20/18 07:59 Ondansetron HCl (Zofran) 4 mg Q8H PRN IVP Nausea & Vomiting 12/20/17 11:30 01/19/18 11:29 Oxycodone HCl (Roxicodone) 15 mg Q3H PRN ORAL Moderate Breakthru Pain (5-7) 12/26/17 08:00 01/02/18 07:59 12/26/17 20:48 Pantoprazole (Protonix) 40 mg BEDTIME ORAL 12/21/17 21:00 01/20/18 20:59 12/26/17 20:47 Phenol/Menthol (Chloraseptic) 1 spray Q3H PRN ORAL SORE THROAT 12/21/17 08:00 01/20/18 07:59 Sennosides (Senokot) 1 tab BID ORAL 12/21/17 09:00 01/20/18 08:59 12/27/17 08:30 Vancomycin HCl (Vanco rx to dose) 1 ea DAILY PRN MISC Per rx protocol 12/24/17 09:15 01/23/18 09:14 Vancomycin HCl/ Dextrose 250 ml @ 166.667 mls/hr Q12H IVPB 12/24/17 14:00 12/29/17 13:59 12/27/17 13:37 CALIN GRULLON December 27, 2017 16:01
[2017-12-27 19:15] VITALS: BP 123/74
--- NOTE | 2017-12-27 19:33 | Cardiology Progress Note ---
Assessment/Plan Assessment/Plan continue current management, no changes f/u CBC Subjective Subjective The patient is resting comfortably doing well, no compalints no leg pain Objective Last 24 Hour Vital Signs Date Time Temp Pulse Resp B/P (MAP) Pulse Ox O2 Delivery O2 Flow Rate FiO2 12/27/17 19:15 98.1 107 20 123/74 99 Room Air 98.1 12/27/17 15:56 97.2 78 18 132/81 96 Room Air 97.2 12/27/17 12:00 97.1 97 18 150/68 96 Room Air 97.1 12/27/17 09:54 97.1 12/27/17 03:42 97.1 97 18 150/68 96 Room Air 97.1 12/26/17 23:58 98.2 94 18 138/79 97 Room Air 3.0 98.2 12/26/17 20:00 97.9 99 18 135/84 100 Room Air 97.9 General Appearance: no apparent distress EENT: PERRL/EOMI Neck: supple Rhythm: NSR Cardiovascular: normal rate Respiratory/Chest: lungs clear Abdomen: non tender Extremities: other - right knee wrapped Pulses: decreased: radial (R) Neurologic: nurse companion II-XII grossly normal Intake and Output 12/26/17 12/27/17 19:00 07:00 Intake Total 925 ml 745.000 ml Output Total 3 ml Balance 922 ml 745.000 ml Intake Oral 620 ml 380 ml IV Total 305 ml 365.000 ml Output Urine Total 3 ml # Voids 3 # Bowel Movements 1 Laboratory Tests Test 12/27/17 06:00 White Blood Count 8.1 K/UL (4.8-10.8) Red Blood Count 3.36 M/UL (4.70-6.10) L Hemoglobin 8.1 G/DL (14.2-18.0) L Hematocrit 26.2 % (42.0-52.0) L Mean Corpuscular Volume 78 FL (80-99) L Mean Corpuscular Hemoglobin 24.0 PG (27.0-31.0) L Mean Corpuscular Hemoglobin Concent 30.8 G/DL (32.0-36.0) L Red Cell Distribution Width 15.6 % (11.6-14.8) H Platelet Count 337 K/UL (150-450) Mean Platelet Volume 5.5 FL (6.5-10.1) L Neutrophils (%) (Auto) 46.2 % (45.0-75.0) Lymphocytes (%) (Auto) 39.4 % (20.0-45.0) Monocytes (%) (Auto) 11.7 % (1.0-10.0) H Eosinophils (%) (Auto) 2.0 % (0.0-3.0) Basophils (%) (Auto) 0.7 % (0.0-2.0) Sodium Level 139 MMOL/L (136-145) Potassium Level 4.1 MMOL/L (3.5-5.1) Chloride Level 106 MMOL/L (98-107) Carbon Dioxide Level 27 MMOL/L (21-32) Anion Gap 6 mmol/L (5-15) Blood Urea Nitrogen 14 mg/dL (7-18) Creatinine 0.9 MG/DL (0.55-1.30) Estimat Glomerular Filtration Rate > 60 mL/min (>60) Glucose Level 102 MG/DL (74-106) Calcium Level 8.5 MG/DL (8.5-10.1) Samantha Alegre MD December 27, 2017 19:33
[2017-12-27] MEDS: Dyna-Hex 2% Top Sol 2oz TOPIC SCH (21:26)
[2017-12-27] MEDS: Iron Sucrose 100 MG in NS 55 ML IV SCH (21:26)
[2017-12-27] MEDS: oxyCODONE 5mg IR tab ORAL PRN (21:28)
[2017-12-27 23:36] VITALS: BP 126/77
[2017-12-28] MEDS: Vancomycin 1250mg/D5W 250ml 250 ML IVPB SCH ×2 (00:51→14:04)
[2017-12-28 08:00] VITALS: BP 128/75
[2017-12-28] MEDS: Cefepime HCl 2 GM in D5W 55 ML IVPB SCH ×2 (08:42→20:07)
[2017-12-28] MEDS: Docusate 100mg/10ml Liq NG SCH ×2 (08:54→17:28)
[2017-12-28] MEDS: Sennosides 8.6mg ORAL SCH ×2 (08:54→17:28)
[2017-12-28] MEDS: Lactobacillus-GG tablet ORAL SCH ×2 (08:54→17:28)
[2017-12-28] MEDS: oxyCODONE 5mg IR tab ORAL PRN ×2 (11:17→21:08)
[2017-12-28 12:00] VITALS: BP 131/80
[2017-12-28 16:08] VITALS: BP 126/77
[2017-12-28 19:13] VITALS: BP 110/72
[2017-12-28] MEDS: Dyna-Hex 2% Top Sol 2oz TOPIC SCH (20:07)
[2017-12-28] MEDS: Iron Sucrose 100 MG in NS 55 ML IV SCH (21:06)
--- NOTE | 2017-12-28 22:54 | Cardiology Progress Note ---
Assessment/Plan Assessment/Plan Ordered CBC, results pending Subjective Subjective The patient is resting comfortably doing well, no compalints no leg pain Objective Last 24 Hour Vital Signs Date Time Temp Pulse Resp B/P (MAP) Pulse Ox O2 Delivery O2 Flow Rate FiO2 12/28/17 19:13 97.9 97 20 110/72 97 Room Air 97.9 12/28/17 16:08 97.9 18 126/77 100 Room Air 97.9 12/28/17 12:00 97.2 18 131/80 98 Room Air 97.2 12/28/17 08:00 98.2 15 128/75 99 Room Air 98.2 12/27/17 23:36 97.0 105 20 126/77 99 Room Air 97.0 General Appearance: no apparent distress EENT: PERRL/EOMI Neck: non-tender Rhythm: NSR Cardiovascular: regular rhythm Respiratory/Chest: lungs clear Abdomen: soft Extremities: other - R knee dressing Intake and Output 12/27/17 12/28/17 19:00 07:00 Intake Total 1320.000 ml 365.000 ml Output Total 650 ml Balance 670.000 ml 365.000 ml Intake Oral 960 ml IV Total 360.000 ml 365.000 ml Output Urine Total 650 ml # Voids 4 4 # Bowel Movements 1 Samantha Alegre MD December 28, 2017 22:54
[2017-12-28] MEDS ORDERED: Vancomycin 1250mg/D5W 250ml 250 ML IVPB SCH (23:00)
[2017-12-28 23:35] VITALS: BP 129/76
[2017-12-29 06:38] VITALS: BP 129/76
[2017-12-29 07:23] LABS: BASOPHILS % (AUTO) 0.9 % (0.0-2.0); EOSINOPHILS % (AUTO) 1.9 % (0.0-3.0); HEMATOCRIT 28.2 % (42.0-52.0); HEMOGLOBIN 8.9 G/DL (14.2-18.0); MEAN CORPUSCULAR VOLUME 78 FL (80-99); MONOCYTES % (AUTO) 12.6 % (1.0-10.0); NEUTROPHILS % (AUTO) 53.5 % (45.0-75.0); PLATELET COUNT 379 K/UL (150-450); RED BLOOD COUNT 3.61 M/UL (4.70-6.10); RED CELL DISTRIBUTION WIDTH 15.9 % (11.6-14.8); WHITE BLOOD COUNT 8.7 K/UL (4.8-10.8)
[2017-12-29 07:33] LABS: ANION GAP 7 mmol/L (5-15); BLOOD UREA NITROGEN 17 mg/dL (7-18); CALCIUM 9.1 MG/DL (8.5-10.1); CARBON DIOXIDE 29 MMOL/L (21-32); CHLORIDE 104 MMOL/L (98-107); CREATININE 1.1 MG/DL (0.55-1.30); POTASSIUM 4.3 MMOL/L (3.5-5.1); SODIUM 140 MMOL/L (136-145)
[2017-12-29 08:00] VITALS: BP 104/67
[2017-12-29] MEDS: Sennosides 8.6mg ORAL SCH (08:13)
[2017-12-29] MEDS: Docusate 100mg/10ml Liq NG SCH (08:13)
[2017-12-29] MEDS: Lactobacillus-GG tablet ORAL SCH (08:13)
[2017-12-29] MEDS: Cefepime HCl 2 GM in D5W 55 ML IVPB SCH (08:23)
[2017-12-29] MEDS ORDERED: Vancomycin 1250mg/D5W 250ml 250 ML IVPB SCH (09:00)
[2017-12-29] MEDS ORDERED: CEFEPIME-D2 GM/50 ML IVPB (11:29)
[2017-12-29] MEDS ORDERED: vancomycin (11:32)
[2017-12-29] MEDS ORDERED: [UNRECOGNIZED DRUG - OTHER] (11:32)
[2017-12-29 12:00] VITALS: BP 125/70
[2017-12-29] MEDS ORDERED: NS 275ml ONE (12:44)
--- NOTE | 2017-12-29 12:50 | Infectious Diseases Prog Note ---
Assessment/Plan Assessment/Plan A) 1) right below knee/leg cellulitis/abscess, s/p debridement, ? osteo/deep infection, hx recent abx including keflex and bactrim - d/w Dr. Oakley from ortho and about iv abx and I told him will give at least 2-3 weeks iv and f/u on clinical response to determine treatment length, may need 6 weeks treatment - surgical culture with coagulase negative staph, ? contaminant 2) hx right knee surgery, pmh o/w negative 3) allergies negative 4) sh - negative, fh-nc, allergies - negative, mar noted, notes and records reviewed 5) d/w RN P) 1) vancomycin and cefepime - day # 8 abx post-op, plan on at least 2-3 iv abx and may need up to 6 weeks depending on clinical response 2) surgical culture with coag neg staph, ? contaminant, patient on abx prior to surgery 3) check labs, bc negative 4) continue with primary and ortho teams 5) picc line in place 6) d/w patient to take probiotics 7) d/w RN and [employer] home health pharmacist about abx vancomycin and cefepime and weekly labs (gave order for 5 weeks for now) 8) told patient to f/u in my office in 2-3 weeks Subjective Constitutional: Denies: fever, fatigue HEENT: Denies: congestion Respiratory: Denies: shortness of breath Cardiovascular: Denies: chest pain Gastrointestinal/Abdominal: Denies: nausea, vomiting, diarrhea Genitourinary: Denies: dysuria, hematuria Neurologic: Denies: headache Skin: Denies: rash Hematologic: Denies: bleeding Musculoskeletal: Reports: pain - right leg pain controlled Allergies: Coded Allergies: No Known Allergies (Unverified , 08/25/17) Objective Vital Signs Last 24 Hour Vital Signs Date Time Temp Pulse Resp B/P (MAP) Pulse Ox O2 Delivery O2 Flow Rate FiO2 12/29/17 12:00 96.8 95 18 125/70 97 Room Air 96.8 12/29/17 08:00 95.0 102 18 104/67 94 95.0 12/29/17 08:00 Room Air 12/29/17 06:38 97.2 88 20 129/76 97 Room Air 3.0 97.2 5/20/18 23:35 97.2 88 20 129/76 97 Room Air 97.2 12/28/17 19:13 97.9 97 20 110/72 97 Room Air 97.9 12/28/17 16:08 97.9 18 126/77 100 Room Air 97.9 Height (Feet): 5 Height (Inches): 11.00 Weight (Pounds): 180 General Appearance: no acute distress HEENT: normocephalic, atraumatic, anicteric, mucous membranes moist Respiratory/Chest: lungs clear, normal breath sounds, no respiratory distress, no accessory muscle use Cardiovascular: normal rate, regular rhythm, no gallop/murmur Abdomen: normal bowel sounds, soft, non tender, no organomegaly, non distended Genitourinary: other - no wang Extremities: no cyanosis, other - right knee covered Skin: no rash 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 Findings represent old hematoma versus abscess. Microbiology Date/Time Source Procedure Growth Status 12/19/17 00:45 Blood Blood Culture - Final NO GROWTH AFTER 5 DAYS Complete 12/19/17 10:45 Urine,Clean Catch Urine Culture - Final NO GROWTH AFTER 48 HOURS Complete 12/22/17 16:00 Knee Right Gram Stain - Final Complete 12/22/17 16:00 Surgical Biopsy Culture - Final Staphylococcus Sp Coag Neg Complete Laboratory Tests Test 12/29/17 07:00 White Blood Count 8.7 K/UL (4.8-10.8) Red Blood Count 3.61 M/UL (4.70-6.10) L Hemoglobin 8.9 G/DL (14.2-18.0) L Hematocrit 28.2 % (42.0-52.0) L Mean Corpuscular Volume 78 FL (80-99) L Mean Corpuscular Hemoglobin 24.6 PG (27.0-31.0) L Mean Corpuscular Hemoglobin Concent 31.4 G/DL (32.0-36.0) L Red Cell Distribution Width 15.9 % (11.6-14.8) H Platelet Count 379 K/UL (150-450) Mean Platelet Volume 5.5 FL (6.5-10.1) L Neutrophils (%) (Auto) 53.5 % (45.0-75.0) Lymphocytes (%) (Auto) 31.0 % (20.0-45.0) Monocytes (%) (Auto) 12.6 % (1.0-10.0) H Eosinophils (%) (Auto) 1.9 % (0.0-3.0) Basophils (%) (Auto) 0.9 % (0.0-2.0) Sodium Level 140 MMOL/L (136-145) Potassium Level 4.3 MMOL/L (3.5-5.1) Chloride Level 104 MMOL/L (98-107) Carbon Dioxide Level 29 MMOL/L (21-32) Anion Gap 7 mmol/L (5-15) Blood Urea Nitrogen 17 mg/dL (7-18) Creatinine 1.1 MG/DL (0.55-1.30) Estimat Glomerular Filtration Rate > 60 mL/min (>60) Glucose Level 98 MG/DL (74-106) Calcium Level 9.1 MG/DL (8.5-10.1) Current Medications Medications (Trade) Dose Ordered Sig/Kwame Route PRN Reason Start Time Stop Time Status Last Admin Dose Admin Acetaminophen (Tylenol) 650 mg Q6H PRN ORAL Mild Pain/Temp > 100.5 12/18/17 21:29 01/17/18 21:28 Al Hydroxide/Mg Hydroxide (Mylanta) 30 ml Q6H PRN ORAL GERD 12/21/17 08:00 01/20/18 07:59 Cefepime HCl 2 gm/ Dextrose 55 ml @ 110 mls/hr EVERY 12 HOURS IVPB 12/24/17 21:00 01/01/18 20:59 12/29/17 08:23 Chlorhexidine Gluconate (Carlyn-Hex 2%) 1 applic DAILY@2000 TOPIC 12/24/17 20:00 01/23/18 19:59 12/28/17 20:07 Clonidine HCl (Catapres Tab) 0.1 mg Q8H PRN ORAL For High Blood Pressure>160 12/21/17 08:00 01/20/18 07:59 Diphenhydramine HCl (Benadryl) 25 mg Q6H PRN ORAL Itching 12/21/17 08:00 01/20/18 07:59 12/23/17 10:19 Docusate Sodium (Colace) 100 mg TWICE A DAY NG 12/21/17 09:00 01/20/18 08:59 12/26/17 09:58 Iron Sucrose 100 mg/Sodium Chloride 60 ml @ 240 mls/hr BEDTIME IV 12/25/17 22:00 12/29/17 21:14 12/28/17 21:06 Lactobacillus Acidophilus (Culturelle) 1 tab TWICE A DAY ORAL 12/20/17 18:00 01/19/18 17:59 12/29/17 08:13 Lorazepam (Ativan) 1 mg Q4H PRN ORAL Muscle Spasm 12/24/17 15:00 12/31/17 14:59 12/28/17 23:25 Magnesium Hydroxide (Mom) 30 ml DAILYPRN PRN ORAL Constipation 12/21/17 08:00 01/20/18 07:59 Magnesium Citrate (Citrate Of Magnesia) 300 ml Q12HR PRN ORAL constipation 12/21/17 08:00 01/20/18 07:59 Ondansetron HCl (Zofran) 4 mg Q8H PRN IVP Nausea & Vomiting 12/20/17 11:30 01/19/18 11:29 Oxycodone HCl (Roxicodone) 15 mg Q3H PRN ORAL Moderate Breakthru Pain (5-7) 12/26/17 08:00 01/02/18 07:59 12/28/17 21:08 Pantoprazole (Protonix) 40 mg BEDTIME ORAL 12/21/17 21:00 01/20/18 20:59 12/28/17 20:07 Phenol/Menthol (Chloraseptic) 1 spray Q3H PRN ORAL SORE THROAT 12/21/17 08:00 01/20/18 07:59 Sennosides (Senokot) 1 tab BID ORAL 12/21/17 09:00 01/20/18 08:59 12/29/17 08:13 Vancomycin HCl (Vanco rx to dose) 1 ea DAILY PRN MISC Per rx protocol 12/24/17 09:15 01/23/18 09:14 Vancomycin HCl/ Dextrose 250 ml @ 166.667 mls/hr Q12H IVPB 12/29/17 09:00 01/03/18 08:59 12/29/17 10:27 CALIN GRULLON December 29, 2017 12:50
--- NOTE | 2017-12-31 11:59 | Discharge Summary ---
Discharge Summary Hospital Course Date of Admission December 18, 2017 at 19:00 Date of Discharge December 29, 2017 at 12:45 Admitting Diagnosis R knee cellulitis Reason for Hospitalization: intractable pain, r/o septic knee, possible surgery HPI Bebo Darden is a 52 year old male who was admitted on December 18, 2017 at 19:00 for Right Knee Cellulitis and right knee pain Consultations 1. dr Cruz pain contract consultant 2. dr Rosenberg IM/cardio 3. dr López -ID specialist Procedures s/p 12/18/[address] Gonzalez,Bal RIGHT KNEE IRRIGATION AND DEBRIDEMENT AND YONATHAN/EXCISON SCAR Hospital Course patient presented to the right knee edema and pain patient with prior surgery in the right knee. ultrasound of the right lower extremity revealed complex nonvascular fluid collection measuring 3 x 3.3 cm, with findings representing old hematoma versus abscess. patient afebrile, no leukocytosis, elevated inflammatory markers CRP 3.0 ,ESR 27 , patient started on empiric antibiotics as per ID specialist recommendations patient had range of motion issue due to scar tissue due to proximity and scarring from prior revision, surgeon explained to the patient option for acute irrigation and debridement with copious lavage with assumption that cellulitis might have irritated the knee patient agreed and consented patient subsequently undergone irrigation and debridement of right knee on December 21. pain management provided pain was controlled pain specialist followed patient was on empiric antibiotics ID specialist closely followed blood culture initially negative , urine culture negative, culture from the right knee revealed Staphylococcus, coagulase negative. repeated right knee culture revealed Staphylococcus, coagulase negative, possible contamination as per ID. PICC line was placed for long trm IV antibiotics Patient noted to have anemia Hemoglobin and hematocrit were closely monitored with goal to keep hemoglobin above 8 Patient was on IV Venofer Stool OB times 2 negative prior to discharge hemoglobin 8.9 hematocrit 28.2. fall precautions were maintained patient was allowed full weightbearing. patient was working with the physical therapist patient was ambulated with a front wheel walker, demonstrating unsteady gait . GI prophylaxis provided incentive spirometry was at the bedside patient was taught and encourage to use it frequently while in the bed to maintain effective pulmonary hygiene bowel regimen instituted pain was controlled with current regimen afebrile no leukocytosis patient slowly improved with improved range of motion patient was stable for discharge home with home health services for PT/OT and IV antibiotics. patient to follow-up with a surgeon as outpatient per infectious disease specialist recommendation patient will need 2-3 weeks of intravenous antibiotics then reassess response to treatment by surgeon patient may need full 6 weeks of antibiotics patient was stable for discharge patient to follow-up with a surgeon as outpatient FINAL DIAGNOSES right knee cellulitis right below knee/leg abscess status post irrigation and debridement R knee 12/21/17 possible osteomyelitis anemia Discharge Medications Discontinued Medications: Cefepime Hcl/D5w (Cefepime-Dextrose 2 Gm/50 Ml) 2 Gm/50 Ml Piggyback 2 GM IVPB EVERY 12 HOURS for 35 Days, BAG No Known Medications* (NKM - No Known Medications*) . 0 ., 0 Refills Rivaroxaban (Xarelto*) 10 Mg Tablet 10 MG ORAL DAILY for 7 Days, TAB 0 Refills [vanco to dose] () [vancomycin] () Discharge Condition Upon Discharge: stable Discharge Disposition Patient was discharged to Home with Home Health(06) Discharge Instructions Discharge Instructions Special Instructions I have been assigned to complete a D/C Summary on this account. I was not involved in the patient management Carey Cummins NP December 31, 2017 11:59
--- NOTE | 2018-01-01 13:15 | Operative Note - Dictated ---
DATE OF OPERATION: 12/21/2017 PREOPERATIVE DIAGNOSES: 1. Questionable infection, proximal tibia. 2. Stiffness of right knee secondary to scar tissue. POSTOPERATIVE DIAGNOSES: 1. Right tibial proximal infection over prior ACL screw. 2. Scar tissue of the right knee. PROCEDURES: Irrigation and debridement of right knee and quadricepsplasty of right knee. SURGEON: Aurelio Gonzalez M.D. CARDIAC RN: None. ANESTHESIOLOGIST: Chano Arana M.D. PREOPERATIVE NOTE: This is a pleasant gentleman who has had several complications with recent and prior infection, 14 years ago a where a massage therapist in [place] aggressively irrigated this area inducing redness and swelling in the proximal tibia away from the knee, but close enough to the knee. The patient came in to see me because of the proximity to the knee and knee was examined, IV antibiotics and workup. He was prepped for surgery. 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 The issue at this point now is persistent scar tissue. The worry with this is this infection is very close to this revision. Advised them I will proceed to wash out the knee, remove scar, optimize him, have Infectious Disease involved and proceed to do a primary stage washout. If this fails, he will need to see a revision specialist, Dr. Kirkpatrick at [facility], Dr. Becerril, or Dr. Shamar Victoria. The patient agreed and consented. DESCRIPTION OF PROCEDURE: Under the benefit of IV sedation, general anesthetic, the patient's right knee was prepped and draped in appropriate manner. The patient had a flexion contracture of 30 with flexion up to 50 or 60. Gentle manipulation was done and incised through subcutaneous tissue down through scar down onto the knee. Cultures were taken of the knee. The scar was removed and gently throughout the whole course, there is no pus in the knee joint itself. We were able to achieve full range of motion, full extension to full flexion. After removing scar in the gutters around the knee joint and the synovium freeing up the knee, we had a thorough release. I was very pleased afterwards. There was some spring with extension due to his tightness of his hamstrings. I then made an incision just distal overlying the redness of the pus pocket and gross pus came out. Gram stains, cultures, tissue cultures were all submitted. It was too close to the knee to not assume that it would not or has not involved the knee at this point, so I am treating this as an acute knee infection. I did a thorough washout with approximately 90 liters of antibiotic irrigation through all compartments and areas of the knee with a pulse lavage. The patient was on antibiotics. We closed up the deep layer with Ethibond, subcutaneous tissue with 2-0 Vicryl, and skin with yamileth. The patient went to recovery room in stable condition. The plan at this point now is to optimize his range of motion, await for cultures, continue antibiotics. Advised if this becomes more troublesome and continues, he will need to see a revision specialist. Aurelio Gonzalez M.D. DR: MILADIS JOB#: [id number] CC: JONA
== END 2017-12-29 12:45 | disposition home IV services (08) | DRG 580 ==
LOC: 4W 19:00
PROC: 0KNQ0ZZ Release Right Upper Leg Muscle, Open Approach (ICD-10-PCS; principal; 2017-12-21 15:00)
PROC: 0J9N0ZZ Drainage of Right Lower Leg Subcutaneous Tissue and Fascia, Open Approach (ICD-10-PCS; principal; 2017-12-21 15:00)
PROC: 02HV33Z Insertion of Infusion Device into Superior Vena Cava, Percutaneous Approach (ICD-10-PCS; 2017-12-24)
PROC: B518ZZA Fluoroscopy of Superior Vena Cava, Guidance (ICD-10-PCS; 2017-12-24)
DX: L03.115 Cellulitis of right lower limb (principal); M86.9 Osteomyelitis, unspecified; D50.9 Iron deficiency anemia, unspecified; L90.5 Scar conditions and fibrosis of skin
CPT/HCPCS: 36415; 36569; 76937; 80048; 80053; 80202; 81001; 82270; 83540; 83615; 83735; 84165; 84443; 85025; 85044; 85610; 85651; 85730; 86140; 87040; 87070; 87075; 87086; 87205; 93005; 94003; 94150; J2250; J2405